=== PATIENT | female | born 1930 | race Caucasian/White ===

== ENCOUNTER → 2017-01-07 | Outpatient (CLI) | payer OTHER ==
[~2017-01-07] MED LIST: ASPEC81 PO; CHOL100027 PO; FURO20TA PO; GADAVIST IV PRN; INSDGI SC; LEVO125T72 PO; LISI40TA PO; LOPRESSOR PO; NSNN50; NVLGI SC; SIMV20TA5 PO; WARF5TAB90 PO
--- NOTE | 2017-01-07 17:59 | DIAGNOSTIC IMAGING REPORT ---
MRI ABDOMEN COMBO CLINICAL HISTORY: Pancreatic and renal masses TECHNIQUE: Imaging was performed prior to and following IV contrast injection. The patient was administered 8.5 cc of intravenous Gadavist COMPARISON STUDY: CT scan dated 02/18/2016 FINDINGS: The gallbladder surgically absent. No hepatic masses are visualized. No splenic masses are visualized. There is no ductal dilatation. There are multiple tiny cystic pancreatic lesions. There is also a dominant lobulated 16 mm cystic lesion at the level the pancreatic head. 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 12 month follow-up is recommended. Postcontrast images are somewhat limited due to respiratory motion artifact. There are bilateral renal cysts. The indeterminate 1 cm lesion within the lower pole the right kidney does not demonstrate significant enhancement and is felt to represent a hyperdense cyst. This can be reevaluated on the 12 month follow-up examination. There is no evidence of pathologic adenopathy. IMPRESSION: 1. Multiple cystic pancreatic lesions including a dominant lobulated 16 mm lesion at the level the pancreatic head. 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 12 month follow-up is recommended. 2. Multiple renal cysts. The previous identified indeterminate 1 cm lower pole right renal lesion, demonstrates no significant enhancement and in all likelihood represents a hyperdense cyst. This should be reevaluated at the patient's 12 month follow-up examination. Electronically signed by: Vinod Lundberg M.D. 01/07/2017 5:58 PM Dictated Date/Time: 01/07/2017 5:50 PM
== END | disposition home or self-care (01) ==
LOC: C.MRI 15:57
PROVIDERS: ATTEND Internal Medicine
DX: K86.9 Disease of pancreas, unspecified (principal)

== ENCOUNTER → 2017-05-12 | Outpatient (CLI) | payer OTHER ==
[~2017-05-12] MED LIST changes: -GADAVIST IV PRN
[2017-05-12 14:12] LABS: ESTIMATED AVERAGE GLUCOSE 140 mg/dl; HA1C FLAG Normal (Normal)
[2017-05-12 14:28] LABS: CHOLESTEROL/HDL RATIO 1.6; THYROID STIMULATING HORMONE 0.994 uIu/ml (0.300-4.500)
== END | disposition home or self-care (01) ==
LOC: C.LABBC 09:39
PROVIDERS: ATTEND Internal Medicine
DX: E78.00 Pure hypercholesterolemia, unspecified (principal); E11.49 Type 2 diabetes mellitus with other diabetic neurological complication; E03.9 Hypothyroidism, unspecified

== ENCOUNTER 2017-10-11 13:06 | Emergency (ER) | payer OTHER ==
[~2017-10-11] VITALS: Ht 162.6 cm; Wt 80.4 kg
[2017-10-11 13:20] VITALS: TEMP 36.6
[2017-10-11] MEDS ORDERED: SODIUM CHLORIDE 0.9% 500ML 500 ML IV STA (13:26)
[2017-10-11] MEDS ORDERED: FAMOTIDINE 20MG/5ML IV PUSH IV STA (13:26)
[2017-10-11] MEDS ORDERED: METHYLPREDNISOLONE 125 MG VIAL IV STA (13:26)
--- NOTE | 2017-10-11 13:31 | EMERGENCY ROOM VISIT NOTE ---
History Report prepared by Bang: Jyoti Duran Under the Supervision of: Dr. Ronni Momin D.O. First contact with patient: 13:17 Chief Complaint: ALLERGIC REACTION Stated Complaint: SWELLING OF FACE, TONGUE, HANDS; POSS ALLERGIC LUTHER Nursing Triage Summary: Pt presents with angioedema, tongue feels thick and sob x 3 days. Pt states sx worse in the morning. Started on an unknown medication last week that is a "spray in the mouth, for congestion that has a steroid. Dr. Holman gave it to me. " History of Present Illness The patient is a 87 year old female who presents to the Emergency Room with complaints of an episode of a possible allergic reaction beginning three days ago. The patient notes a nonproductive cough and worsening swelling to her face and tongue. She reports some shortness of breath which worsens when she lays down. The patient has a history of diabetes. The patient is on Metoprol, warfarin, and lisinopril. The patient saw her PCP, Dr. Holman last week and was put on a oral spray for "congestion". Source of History: patient Onset: three days ago Position: other (generalized) Quality: other (allergic reaction(possible)) Timing: other (episode) Associated Symptoms: + SOB Review of Systems See HPI for pertinent positives & negatives. A total of 10 systems reviewed and were otherwise negative. Past Medical & Surgical Medical Problems: (1) Benign hypertension (2) Diabetes mellitus (3) Hypercholesterolemia (4) Hypothyroidism 1986 (5) Osteoporosis (6) Removal of cyst in right breast (7) Juliaetta Teeth Removal Family History Diabetes mellitus Social History Smoking Status: Former Smoker Alcohol Use: none Drug Use: none Marital Status: Housing Status: lives alone Occupation Status: retired Current/Historical Medications Scheduled Aspirin (Aspirin Ec), 81 MG PO DAILY Cholecalciferol (Vitamin D), 1,000 UNITS PO DAILY Insulin Aspart (Novolog), 5 UNITS SC BID Insulin Aspart (Novolog), 7 UNITS SC QPM Insulin Glargine (Lantus), 10 UNITS SC QPM Levothyroxine Sodium (Synthroid), 125 MCG PO DAILY Lisinopril (Zestril), 40 MG PO DAILY Metoprolol Tartrate (Lopressor) (Lopressor), 50 MG PO BID Simvastatin (Zocor), 20 MG PO QPM Warfarin Sod (Jantoven), 2.5 MG PO 3XWK Warfarin Sod (Coumadin), 5 MG PO 4XWK Scheduled PRN Furosemide (Lasix), 20 MG PO DAILY PRN for EDEMA Mometasone Furoate (Nasal) (Mometasone Furoate), 2 SPRAYS NA DAILY PRN for allergies Allergies Coded Allergies: No Known Allergies (Verified , 10/11/17) Physical Exam Vital Signs Date Time Temp Pulse Resp B/P (MAP) Pulse Ox O2 Delivery O2 Flow Rate FiO2 10/11/17 20:36 72 27 151/79 96 10/11/17 20:30 72 27 151/79 96 Nasal Cannula 3.0 10/11/17 20:15 73 28 155/63 99 Nasal Cannula 3.0 10/11/17 20:01 73 25 151/69 98 Nasal Cannula 3.0 10/11/17 19:46 74 26 133/73 98 Nasal Cannula 3.0 10/11/17 19:30 70 22 129/73 95 Nasal Cannula 3.0 10/11/17 19:17 67 26 147/61 99 Nasal Cannula 3.0 10/11/17 19:15 68 26 99 10/11/17 19:10 70 30 202/80 100 Nasal Cannula 3.0 10/11/17 19:01 67 27 194/113 100 Nasal Cannula 3.0 10/11/17 18:53 74 31 200/98 99 Nasal Cannula 3.0 10/11/17 18:36 72 95 10/11/17 18:31 188/65 10/11/17 18:06 69 23 97 10/11/17 18:01 155/84 10/11/17 17:36 78 33 100 10/11/17 17:31 223/83 10/11/17 17:30 69 19 10/11/17 17:01 209/122 10/11/17 17:00 76 33 10/11/17 16:31 230/113 10/11/17 16:31 230/113 10/11/17 16:30 80 31 89 10/11/17 16:30 80 31 89 10/11/17 16:05 236/91 10/11/17 16:05 236/91 10/11/17 16:01 227/92 10/11/17 16:01 227/92 10/11/17 16:00 77 27 10/11/17 16:00 95 Nasal Cannula 3.0 10/11/17 16:00 77 27 10/11/17 16:00 72 16 231/93 95 Nasal Cannula 3.0 10/11/17 15:59 231/93 18 15:59 231/93 10/11/17 15:58 85 Room Air 10/11/17 15:58 70 25 185/93 85 Room Air 10/11/17 14:22 74 16 185/93 94 Room Air 10/11/17 13:44 61 16 185/91 95 10/11/17 13:37 95 Room Air 10/11/17 13:21 65 10/11/17 13:20 Room Air 93 10/11/17 13:20 36.6 58 16 188/93 94 Room Air 10/11/17 13:20 60 18 188/93 94 Room Air 10/11/17 13:20 94 Room Air Physical Exam GENERAL: Patient is awake, alert, and in no acute distress. Patient is resting comfortably and showing no signs of anxiety EYES: The conjunctivae are clear. The pupils are round and reactive. Significant facial plethora noted no significant oral angioedema noted. EARS, NOSE, MOUTH AND THROAT: The nose is without any evidence of any deformity. Mucous membranes are moist tongue is midline. Mucus membranes dry. NECK: The neck is nontender and supple. Swelling in left peritracheal region, no erythema noted. RESPIRATORY: Normal respiratory effort is noted there is no evidence of wheezing rhonchi or rales CARDIOVASCULAR: Regular rate and rhythm noted there no murmurs rubs or gallops normal S1 normal S2 GASTROINTESTINAL: The abdomen is soft. Bowel sounds are present in all quadrants. Abdomen is nontender MUSCULOSKELETAL/EXTREMITIES: Trace pedal edema bilaterally. There is no evidence of gross deformity full range of motion is noted in the hips and shoulders SKIN: There is no obvious evidence of any rash. There are no petechiae, pallor or cyanosis noted. NEUROLOGIC: Patient is awake alert and oriented x3 strength is symmetric patellar reflexes are 2+ bilaterally Medical Decision & Procedures ER Provider Diagnostic Interpretation: Radiology results as stated below per my review and radiologist interpretation: CT OF THE CHEST WITH IV CONTRAST FINDINGS: Thyroid: Imaged portions of the thyroid gland are normal in appearance. Thoracic aorta: The thoracic aorta is normal in course and caliber, noting standard 3-vessel arch anatomy. No aneurysm or dissection is seen. Pulmonary vasculature: There is attenuation of the right upper lobe pulmonary artery secondary to compression from a large mediastinal mass. There is dilatation of the main pulmonary artery segment which measures 46 mm. This suggests potential hypertension. HEART: There are mild coronary artery calcifications. Lungs and pleural spaces: There is a small left pleural effusion and moderate right pleural effusion. There are compressive atelectatic changes within the right upper lobe. Mediastinum: There is a 13 cm mediastinal mass which narrows the trachea and right upper lobe bronchus. The mass encases and narrows the superior vena cava. The mass encases and narrows the right upper lobe pulmonary artery. Janett: The large mediastinal mass is contiguous with the right hilum. Axilla: There is an enlarged 22 mm left axillary lymph node. Upper abdomen: There is a hiatal hernia. There are 2 hypervascular lesions within the left hepatic lobe anteriorly, each of which measures 1 cm. Skeletal structures: There are no lytic or blastic osseous lesions. IMPRESSION: 1. Large 13 cm superior and middle mediastinal mass which encases and narrows the trachea, right upper lobe bronchus, right upper lobe pulmonary artery, and superior vena cava. 2. Moderate right pleural effusion 3. Small left pleural effusion 4. Enlarged left axillary lymph node Electronically signed by: Vinod Lundberg M.D. SOFT TISSUE NECK WITH FINDINGS: Community Theater Actor topogram: Partially visualized right paramediastinal apical mass. No suspicious nodular enhancement along the airway. No displacement of parapharyngeal fat planes. No effacement of the valleculae or piriform sinuses. No lymphadenopathy. Mild diffuse edema superficial and deep edema with infiltration of the carotid spaces. The veins are grossly patent allowing for phase of contrast. Common and internal carotid arteries patent. Atherosclerosis of the carotid bulbs without significant narrowing. No focal fluid collection. Bilateral comanche lenses of the globes are absent. Postsurgical change of the globes. Minimal mucosal thickening in the left maxillary sinus. Paranasal sinuses and mastoid air cells otherwise clear. Degenerative changes of the cervical spine. Consolidation and effusion noted at the right apex, partially visualized. IMPRESSION: 1. Nonspecific superficial and deep edema in the neck. No evidence of abscess or lymphadenopathy. This is suspected to be a consequence of venous obstruction within the thorax. Please see separately dictated CT chest. 2. Partially visualized consolidation and effusion at the right apex. Electronically signed by: Arnaud Carmichael M.D. CHEST ONE VIEW PORTABLE FINDINGS: There is a 6 cm right upper lobe/paratracheal mass with secondary right upper lobe volume loss. CT scanning is recommended in follow-up.[ The left lung is clear. There are possible trace pleural effusions. IMPRESSION: 6 cm right upper lobe/paratracheal mass with secondary right upper lobe finding loss. This should be presumed neoplastic unless proven otherwise. CT scanning is recommended in follow-up. Electronically signed by: Vinod Lundberg M.D. Laboratory Results 10/11/17 13:32 Red Blood Count 4.89, Mean Corpuscular Volume 91.2, Mean Corpuscular Hemoglobin 29.9, Mean Corpuscular Hemoglobin Concent 32.7, Mean Platelet Volume 11.0, Neutrophils (%) (Auto) 63.5, Lymphocytes (%) (Auto) 20.8, Monocytes (%) (Auto) 12.3, Eosinophils (%) (Auto) 2.3, Basophils (%) (Auto) 0.8, Neutrophils # (Auto ) 6.06, Lymphocytes # (Auto) 1.99, Monocytes # (Auto) 1.18, Eosinophils # (Auto ) 0.22, Basophils # (Auto) 0.08 10/11/17 13:32 Test 10/11/17 13:32 10/11/17 14:21 White Blood Count 9.56 K/uL (4.8-10.8) Red Blood Count 4.89 M/uL (4.2-5.4) Hemoglobin 14.6 g/dL (12.0-16.0) Hematocrit 44.6 % (37-47) Mean Corpuscular Volume 91.2 fL (80-100) Mean Corpuscular Hemoglobin 29.9 pg (25-34) Mean Corpuscular Hemoglobin Concent 32.7 g/dl (32-36) Platelet Count 315 K/uL (130-400) Mean Platelet Volume 11.0 fL (7.4-10.4) Neutrophils (%) (Auto) 63.5 % Lymphocytes (%) (Auto) 20.8 % Monocytes (%) (Auto) 12.3 % Eosinophils (%) (Auto) 2.3 % Basophils (%) (Auto) 0.8 % Neutrophils # (Auto) 6.06 K/uL (1.4-6.5) Lymphocytes # (Auto) 1.99 K/uL (1.2-3.4) Monocytes # (Auto) 1.18 K/uL (0.11-0.59) Eosinophils # (Auto) 0.22 K/uL (0-0.5) Basophils # (Auto) 0.08 K/uL (0-0.2) RDW Standard Deviation 49.6 fL (36.4-46.3) RDW Coefficient of Variation 15.0 % (11.5-14.5) Immature Granulocyte % (Auto) 0.3 % Immature Granulocyte # (Auto) 0.03 K/uL (0.00-0.02) Anion Gap 7.0 mmol/L (3-11) Est Creatinine Clear Calc Drug Dose 48.9 ml/min Estimated GFR () 75.8 Estimated GFR (Non- 65.4 BUN/Creatinine Ratio 26.9 (10-20) Calcium Level 9.3 mg/dl (8.5-10.1) Total Bilirubin 2.0 mg/dl (0.2-1) Aspartate Amino Transf (AST/SGOT) 46 U/L (15-37) Alanine Aminotransferase (ALT/SGPT) 32 U/L (12-78) Alkaline Phosphatase 101 U/L (45-117) Total Creatine Kinase 115 U/L (26-192) Creatine Kinase MB 3.1 ng/ml (0.5-3.6) Creatine Kinase MB Ratio 2.7 (0-3.0) Troponin I 0.033 ng/ml (0-0.045) Total Protein 7.5 gm/dl (6.4-8.2) Albumin 3.3 gm/dl (3.4-5.0) Globulin 4.2 gm/dl (2.5-4.0) Albumin/Globulin Ratio 0.8 (0.9-2) Prothrombin Time 25.7 SECONDS (9.0-12.0) Prothromb Time International Ratio 2.5 (0.9-1.1) Activated Partial Thromboplast Time 33.4 SECONDS (21.0-31.0) Partial Thromboplastin Ratio 1.3 Laboratory results per my review. Medications Administered Medications (Trade) Dose Ordered Sig/Tyrese Route Start Time Stop Time Status Last Admin Dose Admin Sodium Chloride 500 ml @ 999 mls/hr Q31M STAT IV 10/11/17 13:26 10/11/17 13:56 DC 10/11/17 13:44 999 MLS/HR Methylprednisolone Sodium Succinate (Solu-Medrol IV) 125 mg NOW STAT IV 10/11/17 13:26 10/11/17 13:28 DC 10/11/17 13:43 125 MG Famotidine (Pepcid 20mg Iv Push) 20 mg ONE STAT IV 10/11/17 13:26 10/11/17 13:28 DC 10/11/17 13:43 20 MG Labetalol HCl (Normodyne IV) 20 mg NOW STAT IV 10/11/17 17:32 10/11/17 17:33 DC 10/11/17 17:48 20 MG Labetalol HCl (Normodyne IV) 20 mg NOW STAT IV 10/11/17 18:56 10/11/17 18:57 DC 10/11/17 19:09 20 MG ECG Indication: SOB/dyspnea Rate (beats per minute): 56 Rhythm: atrial fibrillation Findings: ST depression (Anterior and inferior), other (no PVC) Comparison ECG Date: 10/04/12 Change: ST depression is increased. EKG interpreted by me. ED Course 1323: The patient was evaluated in room A1. A complete history and physical examination were performed. 1326: Ordered Famotidine 20 mg IV, Solu-Medrol IV 125 mg IV., NSS 500 ml @ 999 mls/hr IV 1422: Dr. Kelly was paged. 1723: I discussed the patient's case with Dr. Rock CT surgery. He will accept the patient to the ICU. 1728: I updated the patient on her test results and the treatment plan. 1732: Ordered Labetalol HCl 20 mg IV 1733: I discussed the patient's case with Dr. Mullen ICU attending. The patient is accepted to the ICU she will be evaluated for further management. Medical Decision Differential diagnosis: Etiologies such as infections, reactive airway disease, pneumonia, pneumothorax , COPD, CHF, cardiac ischemia, pulmonary embolism, musculoskeletal, gastrointestinal, as well as others were entertained. Nursing notes reviewed. Additional history is obtained from the patient's friend. The patient is an 78-year-old female who presented to the emergency department for possible allergic reaction. The patient's been noticing swelling in her tongue as well as her face. She was brought back directly from triage because of difficulty breathing. The patient did not appear to have significant oral angioedema and her breathing was nonlabored. She was initially treated with steroids as well as H2 aspen. The patient's chest x-ray showed a large abnormality in the paratracheal region. I discussed the patient's laboratory radiographic studies with her. 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 The patient was treated with IV beta blockers for blood pressure management. She was reevaluated multiple times. We were unable to contact the thoracic surgeon at our facility so I discussed this case with the cardiothoracic service as well as the unit aide tech service at [facility] [address]. They've agreed to accept the patient in transfer. Transfer paperwork was filled out by myself. The patient was reevaluated multiple times. Medication Reconcilliation Current Medication List: was personally reviewed by me Blood Pressure Screening Patient's blood pressure: Elevated blood pressure Blood pressure disposition: Referred to PCP Consults Time Called: 1717 Consulting Physician: Dr. Rock CT surgery Returned Call: 1723 I discussed the patient's case with Dr. Rock CT surgery. He will accept the patient to the ICU. Additional Consults: Time Called: 1724 Consulted Physician: Dr. Mullen ICU attending Returned Call: 1733 Additional Comments: I discussed the patient's case with Dr. Mullen ICU attending. The patient is accepted to the ICU she will be evaluated for further management. Impression Primary Impression: SVC syndrome Additional Impressions: Mediastinal mass Hypoxia Critical Care I have personally spent greater than 45 minutes of critical care time in the direct management of this patient. This includes bedside care, interpretation of diagnostic studies, and testing, discussion with consultants, patient, and family members, and other required patient management activities. This 45 minutes is in excess of all separately billable procedures. Scribe Attestation The scribe's documentation has been prepared under my direction and personally reviewed by me in its entirety. I confirm that the note above accurately reflects all work, treatment, procedures, and medical decision making performed by me. Departure Information Dispostion Transfer Acute Care Facility Referrals Pro,Ronni Christensen M.D. (PCP) Patient Instructions [facility] Problem Qualifiers
[2017-10-11 13:36] VITALS: Ht 162.6 cm; Wt 80.4 kg
[2017-10-11 13:51] LABS: BASO % 0.8 %; BASO ABS # 0.08 K/uL (0-0.2); EOS % 2.3 %; EOS ABS # 0.22 K/uL (0-0.5); HEMATOCRIT 44.6 % (37-47); HEMOGLOBIN 14.6 g/dL (12.0-16.0); IG# 0.03 K/uL (0.00-0.02); LYMPH % 20.8 %; LYMPH ABS # 1.99 K/uL (1.2-3.4); MEAN CELL VOLUME 91.2 fL (80-100); MEAN CORPUSCULAR HEMOGLOBIN 29.9 pg (25-34); MEAN CORPUSCULAR HGB CONC 32.7 g/dl (32-36); MONO % 12.3 %; MONO ABS # 1.18 K/uL (0.11-0.59); NEUT % 63.5 %; NEUT ABS # 6.06 K/uL (1.4-6.5); PLATELET COUNT 315 K/uL (130-400); RED CELL DISTRIBUTION WIDTH SD 49.6 fL (36.4-46.3); WHITE BLOOD COUNT 9.56 K/uL (4.8-10.8)
--- NOTE | 2017-10-11 13:54 | DIAGNOSTIC IMAGING REPORT ---
CHEST ONE VIEW PORTABLE CLINICAL HISTORY: Respiratory distress COMPARISON STUDY: No previous studies for comparison. FINDINGS: There is a 6 cm right upper lobe/paratracheal mass with secondary right upper lobe volume loss. CT scanning is recommended in follow-up.[ The left lung is clear. There are possible trace pleural effusions. IMPRESSION: 6 cm right upper lobe/paratracheal mass with secondary right upper lobe finding loss. This should be presumed neoplastic unless proven otherwise. CT scanning is recommended in follow-up. Electronically signed by: Vinod Lundberg M.D. 10/11/2017 1:53 PM Dictated Date/Time: 10/11/2017 1:50 PM
[2017-10-11] MEDS ORDERED: CHOL100010 PO (14:12)
[2017-10-11] MEDS ORDERED: FURO-85 PO (14:12)
[2017-10-11] MEDS ORDERED: ASPI81TA28 PO (14:12)
[2017-10-11] MEDS ORDERED: NVLG SC ×2 (14:12)
[2017-10-11] MEDS ORDERED: INSDGI SC (14:13)
[2017-10-11] MEDS ORDERED: SIMV20TA2 PO (14:13)
[2017-10-11] MEDS ORDERED: METO50TA16 PO (14:13)
[2017-10-11] MEDS ORDERED: WARF2.5T8 PO (14:13)
[2017-10-11] MEDS ORDERED: LISI40TA PO (14:13)
[2017-10-11] MEDS ORDERED: MOME6000 (14:13)
[2017-10-11] MEDS ORDERED: CMD5 PO (14:13)
[2017-10-11] MEDS ORDERED: LEVO125T72 PO (14:13)
[2017-10-11] MEDS ORDERED: OPTIRAY 320 IV PRN (14:30)
[2017-10-11 14:56] LABS: INR 2.5 (0.9-1.1); PTT PATIENT 33.4 SECONDS (21.0-31.0)
[2017-10-11 15:08] LABS: ALBUMIN 3.3 gm/dl (3.4-5.0); CALCIUM 9.3 mg/dl (8.5-10.1); CKMB 3.1 ng/ml (0.5-3.6); CREATININE 0.8 mg/dl (0.60-1.20); TOTAL PROTEIN 7.5 gm/dl (6.4-8.2)
[2017-10-11 16:00] VITALS: O2SAT 95
--- NOTE | 2017-10-11 16:04 | DIAGNOSTIC IMAGING REPORT ---
SOFT TISSUE NECK WITH CLINICAL HISTORY: 87 years-old Female presenting with facial swelling. TECHNIQUE: Multidetector CT of the neck was performed after the administration of intravenous contrast. IV contrast: 115 mL of Optiray 320. A dose lowering technique was used consistent with the principles of ALARA (as low as reasonably achievable). COMPARISON: None. CT DOSE (mGy.cm): The estimated cumulative dose is 583.11. FINDINGS: Sewer Inspector topogram: Partially visualized right paramediastinal apical mass. No suspicious nodular enhancement along the airway. No displacement of parapharyngeal fat planes. No effacement of the valleculae or piriform sinuses. No lymphadenopathy. Mild diffuse edema superficial and deep edema with infiltration of the carotid spaces. The veins are grossly patent allowing for phase of contrast. Common and internal carotid arteries patent. Atherosclerosis of the carotid bulbs without significant narrowing. No focal fluid collection. Bilateral jamul lenses of the globes are absent. Postsurgical change of the globes. Minimal mucosal thickening in the left maxillary sinus. Paranasal sinuses and mastoid air cells otherwise clear. Degenerative changes of the cervical spine. Consolidation and effusion noted at the right apex, partially visualized. IMPRESSION: 1. Nonspecific superficial and deep edema in the neck. No evidence of abscess or lymphadenopathy. This is suspected to be a consequence of venous obstruction within the thorax. Please see separately dictated CT chest. 2. Partially visualized consolidation and effusion at the right apex. Electronically signed by: Arnaud Carmichael M.D. 10/11/2017 4:03 PM Dictated Date/Time: 10/11/2017 3:57 PM
--- NOTE | 2017-10-11 16:07 | DIAGNOSTIC IMAGING REPORT ---
CT OF THE CHEST WITH IV CONTRAST CLINICAL HISTORY: Shortness of breath. Respiratory distress. COMPARISON STUDY: Chest x-ray dated to 618 TECHNIQUE: Following the IV administration of 115 mL of Optiray-320, CT of the thorax was performed from the thoracic inlet to the lung bases. Images are reviewed in the axial, sagittal, and coronal planes. IV contrast was administered without complication. A dose lowering technique was utilized adhering to the principles of ALARA. CT DOSE: 583.11 mGy.cm FINDINGS: Thyroid: Imaged portions of the thyroid gland are normal in appearance. Thoracic aorta: The thoracic aorta is normal in course and caliber, noting standard 3-vessel arch anatomy. No aneurysm or dissection is seen. Pulmonary vasculature: There is attenuation of the right upper lobe pulmonary artery secondary to compression from a large mediastinal mass. There is dilatation of the main pulmonary artery segment which measures 46 mm. This suggests potential hypertension. HEART: There are mild coronary artery calcifications. Lungs and pleural spaces: There is a small left pleural effusion and moderate right pleural effusion. There are compressive atelectatic changes within the right upper lobe. Mediastinum: There is a 13 cm mediastinal mass which narrows the trachea and right upper lobe bronchus. The mass encases and narrows the superior vena cava. The mass encases and narrows the right upper lobe pulmonary artery. Janett: The large mediastinal mass is contiguous with the right hilum. Axilla: There is an enlarged 22 mm left axillary lymph node. Upper abdomen: There is a hiatal hernia. There are 2 hypervascular lesions within the left hepatic lobe anteriorly, each of which measures 1 cm. Skeletal structures: There are no lytic or blastic osseous lesions. IMPRESSION: 1. Large 13 cm superior and middle mediastinal mass which encases and narrows the trachea, right upper lobe bronchus, right upper lobe pulmonary artery, and superior vena cava. 2. Moderate right pleural effusion 3. Small left pleural effusion 4. Enlarged left axillary lymph node Electronically signed by: Vinod Lundberg M.D. 10/11/2017 4:06 PM Dictated Date/Time: 10/11/2017 3:57 PM
[2017-10-11] MEDS ORDERED: LABETALOL HCL IV 5 MG/ML 20ML IV STA ×2 (17:32→18:56)
[2017-10-11 20:36] VITALS: BP 151/79; PULSE 72; O2SAT 96
== END 2017-10-11 20:37 | disposition short-term general hospital (02) ==
LOC: C.EDB 13:07 → C.EDA 20:37
DX: I87.1 Compression of vein (principal); R22.2 Localized swelling, mass and lump, trunk; R09.02 Hypoxemia; E11.9 Type 2 diabetes mellitus without complications; I10 Essential (primary) hypertension; Z79.4 Long term (current) use of insulin; M81.0 Age-related osteoporosis without current pathological fracture; E78.00 Pure hypercholesterolemia, unspecified; Z87.891 Personal history of nicotine dependence; Z79.01 Long term (current) use of anticoagulants

== ENCOUNTER 2017-10-27 08:20 | Inpatient (IN) | payer OTHER ==
[~2017-10-27] VITALS: Ht 162.6 cm; Wt 84.6 kg
[~2017-10-27 08:20] MED LIST changes: -ASPEC81 PO; +ASPI81TA28 PO; +CHOL100010 PO; -CHOL100027 PO; +CMD5 PO; +FURO-85 PO; -FURO20TA PO; -LOPRESSOR PO; +METO50TA16 PO; +MOME6000; -NSNN50; +NVLG SC; -NVLGI SC; +SIMV20TA2 PO; -SIMV20TA5 PO; +WARF2.5T8 PO; -WARF5TAB90 PO
--- NOTE | 2017-10-27 08:41 | EMERGENCY ROOM VISIT NOTE ---
History Report prepared by Bang: Imani Hein Under the Supervision of: Dr. Ronni Momin D.O. First contact with patient: 08:22 Chief Complaint: HYPOGLYCEMIA Stated Complaint: HYPOGLYCEMIA Nursing Triage Summary: Patient arrives via ems from [facility] with complaints of being more confused than normal. Patient has history of diabetes and staff found her BSG to be 40 this am. EMS admin a tube and half of oral glucose and brought it up to 44. Patient is on neutropenic precautions for lymphoma. PMH: A-fib, lymphoma, diabetes. History of Present Illness The patient is a 87 year old female who presents to the Emergency Room with complaints of hypoglycemia beginning shortly prior to arrival. Per nursing staff , the patient arrived from [facility] and states that she was confused this morning. Per nursing staff, the patient has a history of diabetes and reports that her sugar was 40 this morning. Per nursing staff, the patient had a tube and a half of oral glucose from EMS and states that the patient felt better after this. The nursing staff states that the patient is on neutropenic precautions for lymphoma. Per nursing staff, the patient has a history of atrial fibrillation. The patient states that she has not eaten today and denies having any pain. Source of History: patient, nursing staff Onset: shortly prior to arrival Position: other (global) Quality: other (hypoglycemia ) Associated Symptoms: No abdominal pain Note: additional symptom: confusion Review of Systems See HPI for pertinent positives & negatives. A total of 10 systems reviewed and were otherwise negative. Past Medical & Surgical Medical Problems: (1) Atrial fibrillation (2) B-cell lymphoma (3) Chemotherapy-induced neutropenia (4) Diabetes mellitus, type II (5) HLD (hyperlipidemia) (6) HTN (hypertension) (7) Hypoglycemia (8) Osteoporosis (9) Removal of cyst in right breast Family History Diabetes mellitus Social History Smoking Status: Former Smoker Alcohol Use: none Drug Use: none Marital Status: Housing Status: assisted living Occupation Status: retired Current/Historical Medications Scheduled Acyclovir (Acyclovir), 400 MG PO Q12 Allopurinol (Zyloprim), 300 MG PO QAM Apixaban (Eliquis), 5 MG PO AMHS Cholecalciferol (Vitamin D), 1,000 UNITS PO DAILY Insulin Aspart (Novolog), 5 UNITS SC BID Insulin Aspart (Novolog), 7 UNITS SC QPM Insulin Glargine (Lantus), 10 UNITS SC HS Levofloxacin (Levaquin), 500 MG PO HS Levothyroxine Sodium (Synthroid), 125 MCG PO DAILY Lisinopril (Zestril), 40 MG PO DAILY Metoprolol Tartrate (Lopressor) (Lopressor), 50 MG PO Q12 Ondansetron Hcl (Zofran), 8 MG PO QPM Trimethoprim/Sulfamethoxazole (Bactrim 400MG/80MG), 1 TAB PO QAM Scheduled PRN Mometasone Furoate (Nasal) (Mometasone Furoate), 2 SPRAYS NA DAILY PRN for Nasal Congestion Ondansetron Hcl (Zofran), 8 MG PO Q6H PRN for Nausea Allergies Coded Allergies: No Known Allergies (Verified , 10/11/17) Physical Exam Vital Signs Date Time Temp Pulse Resp B/P (MAP) Pulse Ox O2 Delivery O2 Flow Rate FiO2 10/27/17 10:57 91 24 132/40 100 Room Air 10/27/17 10:07 36.4 87 18 133/57 100 Room Air 10/27/17 08:37 64 10/27/17 08:23 34.9 82 18 142/99 100 Room Air Physical Exam GENERAL: Patient is awake, alert, and in no acute distress. Patient is resting comfortably and showing no signs of anxiety EYES: The conjunctivae are clear. The pupils are round and reactive. EARS, NOSE, MOUTH AND THROAT: The nose is without any evidence of any deformity. Mucous membranes are moist tongue is midline NECK: The neck is nontender and supple. RESPIRATORY: Normal respiratory effort is noted there is no evidence of wheezing rhonchi or rales CARDIOVASCULAR: Irregular rate and rhythm noted there no murmurs rubs or gallops normal S1 normal S2 GASTROINTESTINAL: The abdomen is soft. Bowel sounds are present in all quadrants. Abdomen is nontender MUSCULOSKELETAL/EXTREMITIES: There is no evidence of gross deformity full range of motion is noted in the hips and shoulders SKIN: There is no obvious evidence of any rash. There are no petechiae, pallor or cyanosis noted. Pedal edema bilaterally with chronic venous stasis changes. NEUROLOGIC: Patient is awake alert and oriented x3 Medical Decision & Procedures ER Provider Diagnostic Interpretation: Radiology results as stated below per my review and radiologist interpretation: CHEST ONE VIEW PORTABLE CLINICAL HISTORY: Pain, radiating to the abdomen. COMPARISON STUDY: 10/11/2017 FINDINGS: The heart remains enlarged. There is been interval decrease in the size of the right mediastinal mass. There is a small subpulmonic right pleural effusion fusion. A trace left pleural effusion is also suspected. There is no focal pulmonary consolidation. There is no free intraperitoneal air.[ IMPRESSION: 1. Interval decrease in the size of the large right-sided mediastinal mass 2. Small pleural effusions right greater than left. No evidence of acute parenchymal consolidation 3. No evidence of free intraperitoneal air Electronically signed by: Vinod Lundberg M.D. 10/27/2017 9:02 AM Dictated Date/Time: 10/27/2017 9:01 AM Laboratory Results 10/27/17 09:04 10/27/17 09:04 Test 10/27/17 09:04 10/27/17 10:08 10/27/17 10:10 Red Blood Count 3.78 M/uL (4.2-5.4) Mean Corpuscular Volume 86.0 fL (80-100) Mean Corpuscular Hemoglobin 29.4 pg (25-34) Mean Corpuscular Hemoglobin Concent 34.2 g/dl (32-36) RDW Standard Deviation 43.1 fL (36.4-46.3) RDW Coefficient of Variation 13.9 % (11.5-14.5) Mean Platelet Volume 10.0 fL (7.4-10.4) Prothrombin Time 11.5 SECONDS (9.0-12.0) Prothromb Time International Ratio 1.1 (0.9-1.1) Activated Partial Thromboplast Time 28.7 SECONDS (21.0-31.0) Partial Thromboplastin Ratio 1.1 Anion Gap 7.0 mmol/L (3-11) Est Creatinine Clear Calc Drug Dose 59.0 ml/min Estimated GFR () 90.3 Estimated GFR (Non- 77.9 BUN/Creatinine Ratio 33.9 (10-20) Estimated Average Glucose 163 mg/dl Hemoglobin A1c 7.3 % (4.5-5.6) Calcium Level 7.7 mg/dl (8.5-10.1) Magnesium Level 1.8 mg/dl (1.8-2.4) Total Bilirubin 2.1 mg/dl (0.2-1) Direct Bilirubin 0.6 mg/dl (0-0.2) Aspartate Amino Transf (AST/SGOT) 37 U/L (15-37) Alanine Aminotransferase (ALT/SGPT) 53 U/L (12-78) Alkaline Phosphatase 73 U/L (45-117) Troponin I 0.030 ng/ml (0-0.045) Total Protein 4.9 gm/dl (6.4-8.2) Albumin 2.5 gm/dl (3.4-5.0) Lipase 47 U/L (73-393) Procalcitonin < 0.05 ng/ml (0-0.5) Thyroid Stimulating Hormone (TSH) 1.180 uIu/ml (0.300-4.500) Bedside Glucose 115 mg/dl (70-90) Urine Color YELLOW Urine Appearance CLEAR (CLEAR) Urine pH 7.0 (4.5-7.5) Urine Specific [place] 1.010 (1.000-1.030) Urine Protein NEG (NEG) Urine Glucose (UA) NEG (NEG) Urine Ketones NEG (NEG) Urine Occult Blood NEG (NEG) Urine Nitrite NEG (NEG) Urine Bilirubin NEG (NEG) Urine Urobilinogen POS (NEG) Urine Leukocyte Esterase NEG (NEG) Laboratory results per my review. Medications Administered Medications (Trade) Dose Ordered Sig/Tyrese Route Start Time Stop Time Status Last Admin Dose Admin Cefepime HCl 2000 mg/Dextrose 112.5 ml @ 200 mls/hr ONE STAT IV 10/27/17 10:31 10/27/17 11:04 DC 10/27/17 10:57 200 MLS/HR Potassium Chloride (Klor-Con M10) 20 meq TODAY@1116 PO 10/27/17 11:16 10/27/17 20:00 10/27/17 13:19 20 MEQ ECG Per My Interpretation Indication: weakness Rate (beats per minute): 71 Rhythm: atrial fibrillation Findings: ST depression (diffuse), other (no PVCs) Change: no significant change (from 10/11/17) ED Course 0834: The patient was evaluated in room A12B. A complete history and physical examination were performed. 0928: I checked on the patient. 1031: Ordered Cefepime HCl 2,000 mg/Dextrose 112.5 ml @ 200 mls/hr IV. 1040: I discussed the patient's case with Rohini Merrill PA-C. The patient will be evaluated for further management. Medical Decision Differential diagnosis: Etiologies such as metabolic, infection, hypoglycemia, electrolyte abnormalities , cardiac sources, intracerebral event, toxicologic, neurologic, as well as others were entertained. Nursing notes reviewed. The patient is an 87-year-old female who presented to the emergency department for an evaluation of altered mental status. The patient was found to have hypoglycemia and hypothermia although I think these 2 are related. The patient was found to have significant neutropenia. 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 Because the degree of neutropenia the patient was treated with IV antibiotics. Her hyperglycemia was corrected with giving her a meal. I discussed patient's laboratory and radiographic studies with her. I discussed her case with the on-call [facility] Hospitalist. They have agreed to evaluate the patient in the emergency department for further management and disposition. Medication Reconcilliation Current Medication List: was personally reviewed by me Blood Pressure Screening Patient's blood pressure: Elevated blood pressure Blood pressure disposition: Elevated BP felt to be situational Consults Time Called: 1034 Consulting Physician: Rohini Merrill PA-C [facility] Returned Call: 1040 I discussed the patient's case with Rohini Merrill PA-C. The patient will be evaluated for further management. Impression Primary Impression: Altered mental status Additional Impressions: Hypoglycemia Hypothermia Neutropenia Scribe Attestation The scribe's documentation has been prepared under my direction and personally reviewed by me in its entirety. I confirm that the note above accurately reflects all work, treatment, procedures, and medical decision making performed by me. Departure Information Dispostion Being Evaluated By Hospitalist Referrals Sydney Starks D.O. (PCP) Patient Instructions My [facility] Problem Qualifiers Primary Impression: Altered mental status Altered mental status type: unspecified Qualified Codes: R41.82 - Altered mental status, unspecified Additional Impressions: Hypothermia Encounter type: initial encounter Qualified Codes: T68.XXXA - Hypothermia, initial encounter Neutropenia Neutropenia type: unspecified Qualified Codes: D70.9 - Neutropenia, unspecified
[2017-10-27] MEDS ORDERED: LEVO-366 PO (08:43)
[2017-10-27] MEDS ORDERED: ONDA8TAB6 PO ×2 (08:43)
[2017-10-27] MEDS ORDERED: APIX1TAB3 PO (08:43)
[2017-10-27] MEDS ORDERED: SULF1TAB92 PO (08:43)
[2017-10-27] MEDS ORDERED: ACYC400T PO (08:43)
[2017-10-27] MEDS ORDERED: ALLO300T2 PO (08:43)
--- NOTE | 2017-10-27 09:03 | DIAGNOSTIC IMAGING REPORT ---
CHEST ONE VIEW PORTABLE CLINICAL HISTORY: Pain, radiating to the abdomen. COMPARISON STUDY: 10/11/2017 FINDINGS: The heart remains enlarged. There is been interval decrease in the size of the right mediastinal mass. There is a small subpulmonic right pleural effusion fusion. A trace left pleural effusion is also suspected. There is no focal pulmonary consolidation. There is no free intraperitoneal air.[ IMPRESSION: 1. Interval decrease in the size of the large right-sided mediastinal mass 2. Small pleural effusions right greater than left. No evidence of acute parenchymal consolidation 3. No evidence of free intraperitoneal air Electronically signed by: Vinod Lundberg M.D. 10/27/2017 9:02 AM Dictated Date/Time: 10/27/2017 9:01 AM
[2017-10-27 09:37] LABS: ALBUMIN 2.5 gm/dl (3.4-5.0); CALCIUM 7.7 mg/dl (8.5-10.1); CREATININE 0.67 mg/dl (0.60-1.20); POTASSIUM 3.3 mmol/L (3.5-5.1)
[2017-10-27 09:38] LABS: INR 1.1 (0.9-1.1); PTT PATIENT 28.7 SECONDS (21.0-31.0)
[2017-10-27 09:42] LABS: TOTAL PROTEIN 4.9 gm/dl (6.4-8.2)
[2017-10-27 09:50] LABS: HEMATOCRIT 32.5 % (37-47); HEMOGLOBIN 11.1 g/dL (12.0-16.0); MEAN CORPUSCULAR HEMOGLOBIN 29.4 pg (25-34); MEAN CORPUSCULAR HGB CONC 34.2 g/dl (32-36); PLATELET COUNT 151 K/uL (130-400); RED CELL DISTRIBUTION WIDTH CV 13.9 % (11.5-14.5); RED CELL DISTRIBUTION WIDTH SD 43.1 fL (36.4-46.3); WHITE BLOOD COUNT 0.09 K/uL (4.8-10.8)
[2017-10-27] MEDS ORDERED: CEFEPIME IV 2,000 MG in DEXTROSE 5% 100ML 100 ML IV STA (10:31)
[2017-10-27] MEDS ORDERED: POTASSIUM CHLORIDE 10 MEQ TABCR PO SCH (11:16)
[2017-10-27] MEDS ORDERED: POLYETHYLENE (MIRALAX) 17 GM PACK PO PRN (11:30)
[2017-10-27] MEDS ORDERED: ONDANSETRON INJ 2 MG/ML 2 ML VIAL IV PRN (11:30)
[2017-10-27] MEDS ORDERED: ENOXAPARIN 30 MG/0.3 ML SYR SC SCH (11:30)
[2017-10-27] MEDS ORDERED: VANCOMYCIN CONSULT ACTIVE PRN ×2 (11:30)
[2017-10-27] MEDS ORDERED: NSS + 20MEQ KCL 1000ML 1,000 ML IV SCH (11:30)
[2017-10-27] MEDS ORDERED: ACETAMINOPHEN 325 MG TAB PO PRN (11:30)
[2017-10-27] MEDS ORDERED: MAGNESIUM HYDROXIDE SUSP 30 ML UDC PO PRN (11:30)
[2017-10-27] MEDS ORDERED: ALUMINUM/MAGNESIUM/SIMETH (MAALOX MAX) 30 ML UDC PO PRN (11:30)
[2017-10-27] MEDS ORDERED: VANCOMYCIN INJ 2,000 MG in SODIUM CHLORIDE 0.9% 500ML 500 ML IV SCH (12:00)
[2017-10-27 12:13] VITALS: BP 118/72; PULSE 73; TEMP 36.7; O2SAT 98; BMI 29.9
[2017-10-27] MEDS ORDERED: ONDANSETRON 8 MG TAB PO PRN (12:15)
--- NOTE | 2017-10-27 12:16 | History and Physical ---
History & Physical Date & Time of Service: Oct 27, 2017 at 12:16 Chief Complaint: Hypoglycemia, Neutropenia Primary Care Physician: Sydney Starks D.O. 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 Underwent EBUS with biopsy of mediastinal mass consistent with B cell lymphoma. Was started on RCEPP (Rituxan/cyclophosphamide/etoposide/prednisone/procarbazine) chemo on . Was discharged to [facility] with plans to follow up with Dr. Herr for further treatment. Was seen in clinic by REESE Sanchez and daily Neupogen injections were initiated for ANC <1,000. Was found to be hypoglycemic (BSG of 40) and hypothermic at [facility] this morning and was brought over by EMS for further evaluation. Was given oral glucose en route and BSG now 115. States that she was experiencing confusion prior to arrival but it has since resolved. Endorses chills, lightheadedness, nausea and diarrhea since initiation of chemo on 10/16. Has had decreased PO intake over the past few days but anti-emetics are helping with nausea. Denies fever, headache, near-syncope, visual changes, sore throat, chest pain, SOB, abdominal pain, vomiting, dysuria, constipation or weakness in extremities. BLE are more swollen than normal and she has noted clear drainage over the past few days. Was discharged from [facility] on a 5 day course of lasix 20mg PO that she has completed. Past Medical/Surgical History Medical Problems: (1) Atrial fibrillation Status: Chronic (2) B-cell lymphoma Status: Chronic (3) Chemotherapy-induced neutropenia Status: Chronic (4) Diabetes mellitus, type II Status: Chronic (5) HLD (hyperlipidemia) Status: Chronic (6) HTN (hypertension) Status: Chronic (7) Hypoglycemia Status: Resolved (8) Osteoporosis Status: Chronic (9) Removal of cyst in right breast Status: Resolved Family History Diabetes mellitus Social History Smoking Status: Former Smoker Drug Use: none Marital Status: Housing status: [facility] Occupational Status: retired Immunizations History of Influenza Vaccine: Yes History of Tetanus Vaccine?: Yes History of Pneumococcal: Yes History of Hepatitis B Vaccine: No Multi-Drug Resistant Organisms History of MDRO: No Allergies Coded Allergies: No Known Allergies (Verified , 10/11/17) Home Medications Scheduled Acyclovir (Acyclovir), 400 MG PO Q12 Allopurinol (Zyloprim), 300 MG PO QAM Apixaban (Eliquis), 5 MG PO AMHS Cholecalciferol (Vitamin D), 1,000 UNITS PO DAILY Insulin Aspart (Novolog), 5 UNITS SC BID Insulin Aspart (Novolog), 7 UNITS SC QPM Insulin Glargine (Lantus), 10 UNITS SC HS Levofloxacin (Levaquin), 500 MG PO HS Levothyroxine Sodium (Synthroid), 125 MCG PO DAILY Lisinopril (Zestril), 40 MG PO DAILY Metoprolol Tartrate (Lopressor) (Lopressor), 50 MG PO Q12 Ondansetron Hcl (Zofran), 8 MG PO QPM Trimethoprim/Sulfamethoxazole (Bactrim 400MG/80MG), 1 TAB PO QAM Scheduled PRN Mometasone Furoate (Nasal) (Mometasone Furoate), 2 SPRAYS NA DAILY PRN for Nasal Congestion Ondansetron Hcl (Zofran), 8 MG PO Q6H PRN for Nausea Review of Systems Ten systems reviewed and negative except as noted in the HPI. Physical Exam Vital Signs Date Time Temp Pulse Resp B/P (MAP) Pulse Ox O2 Delivery O2 Flow Rate FiO2 10/27/17 11:45 97 22 123/48 100 10/27/17 10:57 91 24 132/40 100 Room Air 10/27/17 10:07 36.4 87 18 133/57 100 Room Air 10/27/17 08:37 64 10/27/17 08:23 34.9 82 18 142/99 100 Room Air General Appearance: WD/WN, no apparent distress, + pertinent finding ( chronically ill appearing) Head: normocephalic, atraumatic Eyes: normal inspection, PERRL, sclerae normal ENT: normal ENT inspection, hearing grossly normal, pharynx normal (dry mucous membranes ) Neck: supple, thyroid normal, trachea midline Respiratory/Chest: chest non-tender, lungs clear, normal breath sounds, no respiratory distress, no accessory muscle use Cardiovascular: no murmur, normal peripheral pulses, + irregularly irregular Abdomen/GI: non tender, soft, no organomegaly Back: normal inspection Extremities/Musculoskelatal: normal inspection, no calf tenderness, + pertinent finding (R>L BLE edema with clear drainage. Bruising on R leg. ) Neurologic/Psych: no motor/sensory deficits, alert, normal mood/affect, oriented x 3 Skin: normal color, warm/dry Diagnostics Laboratory Results Results Past 24 Hours Test 10/27/17 08:28 10/27/17 09:04 10/27/17 09:08 10/27/17 10:08 Range/Units Bedside Glucose 48 108 115 70-90 mg/dl White Blood Count 0.09 4.8-10.8 K/uL Red Blood Count 3.78 4.2-5.4 M/uL Hemoglobin 11.1 12.0-16.0 g/dL Hematocrit 32.5 37-47 % Mean Corpuscular Volume 86.0 80-100 fL Mean Corpuscular Hemoglobin 29.4 25-34 pg Mean Corpuscular Hemoglobin Concent 34.2 32-36 g/dl RDW Standard Deviation 43.1 36.4-46.3 fL RDW Coefficient of Variation 13.9 11.5-14.5 % Platelet Count 151 130-400 K/uL Mean Platelet Volume 10.0 7.4-10.4 fL Prothrombin Time 11.5 9.0-12.0 SECONDS Prothromb Time International Ratio 1.1 0.9-1.1 Activated Partial Thromboplast Time 28.7 21.0-31.0 SECONDS Partial Thromboplastin Ratio 1.1 Sodium Level 131 136-145 mmol/L Potassium Level 3.3 3.5-5.1 mmol/L Chloride Level 96 98-107 mmol/L Carbon Dioxide Level 28 21-32 mmol/L Anion Gap 7.0 3-11 mmol/L Blood Urea Nitrogen 23 7-18 mg/dl Creatinine 0.67 0.60-1.20 mg/dl Est Creatinine Clear Calc Drug Dose 59.0 ml/min Estimated GFR () 90.3 Estimated GFR (Non- 77.9 BUN/Creatinine Ratio 33.9 10-20 Random Glucose 74 70-99 mg/dl Calcium Level 7.7 8.5-10.1 mg/dl Magnesium Level 1.8 1.8-2.4 mg/dl Total Bilirubin 2.1 0.2-1 mg/dl Direct Bilirubin 0.6 0-0.2 mg/dl Aspartate Amino Transf (AST/SGOT) 37 15-37 U/L Alanine Aminotransferase (ALT/SGPT) 53 12-78 U/L Alkaline Phosphatase 73 45-117 U/L Troponin I 0.030 0-0.045 ng/ml Total Protein 4.9 6.4-8.2 gm/dl Albumin 2.5 3.4-5.0 gm/dl Lipase 47 73-393 U/L Thyroid Stimulating Hormone (TSH) 1.180 0.300-4.500 uIu/ml Test 10/27/17 10:10 10/27/17 11:20 Range/Units Urine Color YELLOW Urine Appearance CLEAR CLEAR Urine pH 7.0 4.5-7.5 Urine Specific [place] 1.010 1.000-1.030 Urine Protein NEG NEG Urine Glucose (UA) NEG NEG Urine Ketones NEG NEG Urine Occult Blood NEG NEG Urine Nitrite NEG NEG Urine Bilirubin NEG NEG Urine Urobilinogen POS NEG Urine Leukocyte Esterase NEG NEG Microbiology Results 10/27/17 Blood Culture, Received Pending 10/27/17 Blood Culture, Received Pending Diagnostic Radiology CXR: IMPRESSION: 1. Interval decrease in the size of the large right-sided mediastinal mass 2. Small pleural effusions right greater than left. No evidence of acute parenchymal consolidation 3. No evidence of free intraperitoneal air BLE Venous Doppler: IMPRESSION: There is no sonographic evidence of deep venous thrombosis identified in the right or left lower extremity. 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 Chemo-induced neutropenia: -Diagnosed with Large B cell lymphoma earlier in Oct 2017 -RCEPP chemo initiated on 10/16 at [facility] -Follows with Dr. Herr -Started on Neupogen 300mcg SQ daily last week -Found to be hypothermic this AM. Rectal temp of 34.5 initially in ED. Now afebrile -Meets SIRs criteria -Concern for infection; strict neutropenic precautions -CXR shows decreased in size of mediastinal LN, decrease in size of rt sided pleural effusion -Procalcitonin normal. Lactic acid of 3. Repeat lactic acid -Cefepime, vanc for empiric coverage. Follow cultures -Gentle IVF resuscitation -Consulted ID -Consulted heme onc -Cont neupogen at home dose -CBC with diff in AM B cell lymphoma: -Cont acyclovir, bactrim, allopurinol for prophylaxis Hypoglycemia: resolved -Poor PO intake lately, on insulin for DM II -Hold home regimen -SSI while in-patient -A1c pending Hyperbilirubinemia: -T bili of 2.1, D bili 0.6 -AST, ALT, Alk phos wnl -MRI liver orderered 2/ elevated bili, concern for mets -Patient refused MRI, stating that she feels too tired -GI consulted -Liver lesions (from abd CT 10/13/16 ) suggestive of metastatic disease -Patient does not wish to undergo liver MRI or continue chemo because she feels too tired -Need to clarify goals of care with heme onc -Repeat CMP in AM BLE swelling: -R>L BLE edema with clear drainage -Recently completed 5 day course of 20mg Po lasix -BLE dopplers negative for DVT Diarrhea: -Chronic but worse since initiation of chemo -Stool cultures, c diff pending A Fib: -A fib at 71 bpm on admission -Cont eliquis -Cont metoprolol for rate control HTN: -Cont lisinopril, metoprolol Hypothyroidism: -Cont levothyroxine HLD: -Cont statin DVT Ppx: Continue Eliquis Code status: FULL per discussion with patient PCP: Raudel Dispo: Admitted to telemetry. Discharge planning ordered for return to [facility]. PT, OT, speech evals ordered. Patient seen in collaboration with Dr. Patrick. Please see addendum. 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 was transferred to [place] on 10/11/17 , underwent Neck LN biopsy -confirming the malignancy was discharged form [facility] to [facility] for rehab received 1 cycle of Chemo presents to ER today with confusion , Hypothermia , hypoglycemia BSG was reported to be 40 at [facility] Lab showed severe Neutropenia Cxray : shows decrease in size of mediastinal LN , decrease in size of rt sided pleural effusion pt meets SIRS criteria Hypothermic /neutropenic possible source of infection still not identified empiric Abx with Vancomycin /cefepime pt been on Acyclovir and Bactrim for virus and PCP prophylaxis ID eval requested cont Broad spectrum Abx puentes culture ordered Neutropenic precaution heme onc consult requested please see further documentation of Sigrid Arango PA-C for further discussion of other issues Kami Patrick MD Level of Care Telemetry Resuscitation Status FULL RESUSCITATION VTE Prophylaxis VTE Risk Assessment Done? Y/N: Yes Risk Level: Moderate Given or contraindicated: Other Anticoagulation Social Service Consult Lives in Jail
[2017-10-27 12:30] LABS: HEMOGLOBIN A1C 7.3 % (4.5-5.6)
[2017-10-27] MEDS ORDERED: GLUCAGON FOR INJ 1 MG VIAL SQ PRN (12:30)
[2017-10-27] MEDS ORDERED: DEXTROSE 50% 50 ML SYR IV PRN (12:30)
[2017-10-27] MEDS ORDERED: GLUCOSE 10 TABS/TUBE PO PRN (12:30)
[2017-10-27] MEDS ORDERED: GLUCOSE 40% GEL 15 GM TUBE PO PRN (12:30)
[2017-10-27] MEDS ORDERED: FLUTICASONE PROPIONATE NA SPR 16 GM BTL PRN (13:41)
[2017-10-27] MEDS ORDERED: FILGRASTIM 300 MCG/ML 1 ML VIAL SQ ONE (14:00)
--- NOTE | 2017-10-27 14:06 | DIAGNOSTIC IMAGING REPORT ---
ULTRASOUND BILATERAL LOWER EXTREMITY VENOUS CLINICAL HISTORY: Lower extremity edema. COMPARISON STUDY: No priors. TECHNIQUE: Real-time, grayscale, and color Doppler sonography of the deep veins of the right and left lower extremity was performed from the inguinal crease to the calf. Compression and augmentation were utilized. FINDINGS: There is no sonographic evidence of deep venous thrombosis identified in the right or left lower extremity. The common femoral, superficial femoral, and popliteal veins are patent and normally compressible bilaterally. The greater saphenous vein and the profunda femoris vein at the junction with the common femoral vein are clear in both legs. The visualized calf veins are patent bilaterally. IMPRESSION: There is no sonographic evidence of deep venous thrombosis identified in the right or left lower extremity. Electronically signed by: Satnam Bass M.D. 10/27/2017 2:04 PM Dictated Date/Time: 10/27/2017 2:04 PM
--- NOTE | 2017-10-27 14:27 | Pharmacy Progress Note ---
Pharmacy Abx Initial Consult Date of Service Oct 27, 2017. Pharmacy Dosing Scope Date of Consult: 10/27/17 Consultation requested by: Sigrid Arango Pharmacy is consulted to initiate Vancomycin IV dosing therapy, order appropriate labs and adjust drug dose/frequency. Subjective The patient is a 87 year old female admitted on Oct 27, 2017 at 11:16. Objective Height (Feet): 5 Height (Inches): 4.00 Weight (Kilograms): 79.000 Vital Signs (Past 12Hrs) Vital Signs Past 12 Hours Date Time Temp Pulse Resp B/P (MAP) Pulse Ox O2 Delivery O2 Flow Rate FiO2 10/27/17 12:13 36.7 73 18 118/72 98 Room Air 10/27/17 11:45 97 22 123/48 100 10/27/17 10:57 91 24 132/40 100 Room Air 10/27/17 10:07 36.4 87 18 133/57 100 Room Air 10/27/17 08:37 64 10/27/17 08:23 34.9 82 18 142/99 100 Room Air Lab Results (24Hrs) Laboratory Tests (24 Hours) Test 10/27/17 09:04 10/27/17 12:42 Procalcitonin < 0.05 ng/ml (0-0.5) White Blood Count 0.09 K/uL (4.8-10.8) *L Lactic Acid Level 3.1 mmol/L (0.4-2.0) *H Micro Results Date/Time Source Procedure Growth Status 10/27/17 10:49 Blood Blood Culture Pending Received 10/27/17 10:44 Blood Blood Culture Pending Received Risk Factors for Resistance * Resident in a fdc or extended-care facility * Hospitalization for 48 hours or more within the past 90 days * Discharged from [facility] earlier this month * Immunocompromised * Started chemo for B-cell lymphoma on 10/16 * Antimicrobial use within the last 90 days * Bactrim SS daily * Levaquin 500mg (dates and indication unknown at this time) Assessment & Plan Assessment 87 year old female fdc resident with b cell lymphoma. Presented to [facility] with hypoglycemia and hypothermia c/o chills, lightheadedness, nausea and diarrhea since initiation of chemo on 10/16. Vancomycin initiated for neutropenia and possible pulmonary source infection. * Blood cultures pending * Renal function at baseline Plan Vancomycin for treatment of pulmonary source/neutropenia Vancomycin IV * Loading dose: 2000 mg (25 mg/kg) * Maintenance dose: 1250 mg IV (15 mg/kg) every 16 hours * Goal trough level 15 to 20 mcg/mL * Trough level ordered for 10/29 @0730 Pt is also on Cefepime 2 gm IV q 12 hours. This is not a consult. Pharmacy will continue to follow and will adjust dose/frequency as necessary. Thank you.
--- NOTE | 2017-10-27 14:47 | Progress Note ---
Progress Note Date of Service Oct 27, 2017. Progress Note ID Consult Dictated #[id number] A/P: 1. Neutropenia - chemo induced -Follow cultures -Currently afebile -Follow wbc s/o neupogen -thank you
[2017-10-27 15:05] VITALS: BP 109/65; PULSE 63; TEMP 36.7; O2SAT 96
[2017-10-27 15:20] LABS: INFLUENZA B ANTIGEN Neg for Influ B (NEG)
[2017-10-27 15:29] VITALS: BMI 29.9
[2017-10-27] MEDS ORDERED: SODIUM CHLORIDE 0.9% 1000ML 1,000 ML IV SCH (15:30)
--- NOTE | 2017-10-27 17:47 | Gastrointestinal Consultation ---
Gastrointestinal Consultation Date of Consultation: Oct 27, 2017 Attending Physician: OWEN Pink Consulting Physician: Dr. Vargas Reason for Consultation: Elevated LFTs in Lymphoma, chemotherapy History of Present Illness Patient is a 87 year old female who was sent today from [facility] for hypothermia and hypoglycemia. She carries a hx of A-fib, DM-2, HTN, hyperlipidemia, Osteoporosis. GI is consulted for elevated LFTs. Ms. Loving presented with a cough in Jul 2017. Early this month, a CT of the chest reveled an 11cm mediastinal mass encasing the SVC, mets to lymph nodes in the left axillary area as well as three liver lesions suggestive of liver mets. 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 She started R- CEPP (Rituxan/cyclophosphamide/etoposide/prednisone/procarbazine) chemo on managed by Dr. Herr. This is now being held as pt is neutropenic, on Neupogen. LFTs are mildly elevated: T Bili 2.1, D bili 0.6. AST, ALT and Alk Phos are normal. A review of outpatient [facility] records show that these levels are similar to LFTs drawn on four occasions earlier this month. The patient denies biliary colic type abdominal pain or jaundice. She has chronic diarrhea since undergoing cholecystectomy in 2015. She tells me that she does not wish to undergo MRI or further chemotherapy, that it makes her too tired, and "not good." Past Medical/Surgical History Medical Problems: (1) Acute cholecystitis Status: Acute (2) Altered mental status Status: Acute (3) Hypothermia Status: Acute (4) Hypoxia Status: Acute (5) Leukocytosis Status: Acute (6) Mediastinal mass Status: Acute (7) RUQ abdominal pain Status: Acute (8) SVC syndrome Status: Acute Past Medical History: 1. A fib (warfarin recently held) 2. DM-2, diabetic neuropathy 3. HTN 4. Hyperlipidemia 5. Osteoporosis Past Surgical History: 1. Cholecystectomy 2. Bronchoscopy 3. Central line placement Family History Diabetes mellitus Social History Smoking Status: Never Smoker Alcohol Use: none Drug Use: none Marital Status: Housing Status: assisted living Occupation Status: retired Allergies Coded Allergies: No Known Allergies (Verified , 10/11/17) Current Medications Home Meds and Scripts Medications Dose Route/Sig Max Daily Dose Days Date Category Dose Instructions Zofran (Ondansetron HCl) 8 Mg Tab 8 Mg PO Q6H PRN 10/27/17 Reported GIVE PRN FOR BREAKTHROUGH NAUSEA Zofran (Ondansetron HCl) 8 Mg Tab 8 Mg PO QPM 10/27/17 Reported GIVE WITH DINNER Levaquin (Levofloxacin) 500 Mg Tab 500 Mg PO HS 10/27/17 Reported Bactrim 400MG/80MG (Trimethoprim/Sulfamethoxazole) Tab 1 Tab PO QAM 10/27/17 Reported Eliquis (Apixaban) 5 Mg Tab 5 Mg PO AMHS 10/27/17 Reported Zyloprim (Allopurinol) 300 Mg Tab 300 Mg PO QAM 10/27/17 Reported Acyclovir 400 Mg Tab 400 Mg PO Q12 10/27/17 Reported Mometasone Furoate (Mometasone Furoate (Nasal)) 50 Mcg/Act Spr 2 Sprays NA DAILY PRN 10/11/17 Reported Lopressor (Metoprolol Tartrate) 50 Mg Tab 50 Mg PO Q12 10/11/17 Reported Zestril (Lisinopril) 40 Mg Tab 40 Mg PO DAILY 10/11/17 Reported Synthroid (Levothyroxine Sodium) 125 Mcg Tab 125 Mcg PO DAILY 10/11/17 Reported Lantus (Insulin Glargine) 100 Unit/Ml Inj 10 Units SC HS 10/11/17 Reported Novolog (Insulin Aspart) 100 Units/Ml Inj 7 Units SC QPM 10/11/17 Reported SUPPER Novolog (Insulin Aspart) 100 Units/Ml Inj 5 Units SC BID 10/11/17 Reported AM & LUNCH Vitamin D (Cholecalciferol) 1,000 Unit Tab 1,000 Units PO DAILY 10/11/17 Reported Review of Systems Constitutional: + weakness, No fever, No chills, No sweats, No weight loss Eyes: No eye pain, No redness ENT: No sore throat, No trouble swallowing, No pain on swallowing Respiratory: No cough, No wheezing, No shortness of breath, No dyspnea on exertion Cardiac: No chest pain, No edema, No palpitations Abdomen: + see HPI, + diarrhea (chronic), No pain, No nausea, No vomiting, No GI bleeding Female : No dysuria Neuro: No memory loss, No weakness, No numbness/tingling, No vertigo, No balance problems Psych: No depression symptoms, No anxiety, No insomnia Heme: No abnormal bleeding/bruising, No night sweats Endo: No excessive thirst, No excessive urination Skin: No rash, No itch, No new/changing skin lesions, No jaundice Physical Exam Date Time Temp Pulse Resp B/P (MAP) Pulse Ox O2 Delivery O2 Flow Rate FiO2 10/27/17 15:05 36.7 63 20 109/65 (80) 96 Room Air 10/27/17 12:13 36.7 73 18 118/72 98 Room Air 10/27/17 11:45 97 22 123/48 100 10/27/17 10:57 91 24 132/40 100 Room Air 10/27/17 10:07 36.4 87 18 133/57 100 Room Air 10/27/17 08:37 64 10/27/17 08:23 34.9 82 18 142/99 100 Room Air General Appearance: no apparent distress Eyes: normal inspection, EOMI Neck: supple, no adenopathy, thyroid normal, no JVD Respiratory/Chest: chest non-tender, lungs clear, normal breath sounds, no accessory muscle use Cardiovascular: regular rate, rhythm, no JVD, no murmur Abdomen: normal bowel sounds, non tender, soft, no organomegaly Extremities: normal inspection, no pedal edema, normal capillary refill Neurologic/Psych: alert, normal mood/affect, oriented x 3 Skin: normal color, no jaundice, warm/dry, no rash Laboratory Results Last 24 Hours Test 10/27/17 08:28 10/27/17 09:04 10/27/17 09:08 10/27/17 10:08 Bedside Glucose 48 mg/dl 108 mg/dl 115 mg/dl White Blood Count 0.09 K/uL Red Blood Count 3.78 M/uL Hemoglobin 11.1 g/dL Hematocrit 32.5 % Mean Corpuscular Volume 86.0 fL Mean Corpuscular Hemoglobin 29.4 pg Mean Corpuscular Hemoglobin Concent 34.2 g/dl RDW Standard Deviation 43.1 fL RDW Coefficient of Variation 13.9 % Platelet Count 151 K/uL Mean Platelet Volume 10.0 fL Prothrombin Time 11.5 SECONDS Prothromb Time International Ratio 1.1 Activated Partial Thromboplast Time 28.7 SECONDS Partial Thromboplastin Ratio 1.1 Sodium Level 131 mmol/L Potassium Level 3.3 mmol/L Chloride Level 96 mmol/L Carbon Dioxide Level 28 mmol/L Anion Gap 7.0 mmol/L Blood Urea Nitrogen 23 mg/dl Creatinine 0.67 mg/dl Est Creatinine Clear Calc Drug Dose 59.0 ml/min Estimated GFR () 90.3 Estimated GFR (Non- 77.9 BUN/Creatinine Ratio 33.9 Random Glucose 74 mg/dl Estimated Average Glucose 163 mg/dl Hemoglobin A1c 7.3 % Calcium Level 7.7 mg/dl Magnesium Level 1.8 mg/dl Total Bilirubin 2.1 mg/dl Direct Bilirubin 0.6 mg/dl Aspartate Amino Transf (AST/SGOT) 37 U/L Alanine Aminotransferase (ALT/SGPT) 53 U/L Alkaline Phosphatase 73 U/L Troponin I 0.030 ng/ml Total Protein 4.9 gm/dl Albumin 2.5 gm/dl Lipase 47 U/L Procalcitonin < 0.05 ng/ml Thyroid Stimulating Hormone (TSH) 1.180 uIu/ml Test 10/27/17 10:10 10/27/17 12:42 10/27/17 14:25 Urine Color YELLOW Urine Appearance CLEAR Urine pH 7.0 Urine Specific [place] 1.010 Urine Protein NEG Urine Glucose (UA) NEG Urine Ketones NEG Urine Occult Blood NEG Urine Nitrite NEG Urine Bilirubin NEG Urine Urobilinogen POS Urine Leukocyte Esterase NEG Lactic Acid Level 3.1 mmol/L Influenza Type A Antigen Neg for Influ A Influenza Type B Antigen Neg for Influ B Impression Patient is a 87 year old female with 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 Her mild, stable bilirubin elevation is expected with chemotherapy. Her recent CT imaging of ([facility] records) on 10/13/16 w/o bile duct obstruction argues against obstruction at that time and because she has not had a significant increase her bilirubin since that time, she is very unlikely to have bile duct obstruction today. Her liver lesions are suggestive of metastatic disease. Still her synthetic function remains normal or near normal at this time with normal INR though albumin is low at 2.5. Plan If it would benefit the pt to dx or rule out liver mets, then would go forward with liver MRI. Otherwise, there is no benefit to further liver imaging at this time as there was no obstruction on very recent CT scan. Certainly her liver function is adequate to continue chemotherapy at this point if her neutropenia improves and the pt wishes for further chemotherapy. The pt told me that she does not wish to continue chemotherapy or to undergo liver MRI. I encouraged her to clarify her goals with the primary hospitalist team and her oncologist. I performed a history and physical examination of the patient. I have discussed the patient's case, impression and plan with MARGARITA Johnston on . Her note reflects my findings and plan. No worrisome elevation of liver enzymes. Cont care as per primary service. Gabe Vargas MD
[2017-10-27] MEDS: INSULIN ASPART 100 UNITS/ML 3 ML PEN SC SCH ×2 (18:37→21:00)
--- NOTE | 2017-10-27 18:56 | Progress Note ---
Progress Note Date of Service Oct 27, 2017. 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 Lab showed severe Neutropenia Cxray : shows decrease in size of mediastinal LN , decrease in size of rt sided pleural effusion pt meets SIRS criteria Hypothermic /neutropenic possible source of infection still not identified empiric Abx with Vancomycin /cefepime pt been on Acyclovir and Bactrim for virus and PCP prophylaxis ID eval requested cont Broad spectrum Abx puentes culture ordered Neutropenic precaution heme onc consult requested please see further documentation of Sigrid Arango PA-C for further discussion of other issues
--- NOTE | 2017-10-27 19:07 | INFECT. DISEASE CONSULTATION ---
DATE OF CONSULTATION: 10/27/2017 HISTORY OF PRESENT ILLNESS: This is an 87-year-old female with a recent diagnosis of large B cell lymphoma, is [facility] secondary to low blood sugar. In the ER, her blood sugar was 48. She was also found to be hypothermic with a temperature of 34.9 which has improved to normal. She has not had any fevers since admission. She was found to be neutropenic. She has recently undergone chemotherapy for lymphoma and is receiving Neupogen. She did receive a dose here today. Her white blood cell count was 0.09. Infectious diseases was consulted for neutropenia. She was placed on antibiotics and appears to be tolerating these well. She is also on prophylactic Bactrim and acyclovir. She recently was admitted to the hospital for facial swelling and was subsequently transferred to [facility] where she was found to have a mediastinal mass and superior vena cava syndrome. She did have an x-ray in the Emergency Room today which showed decreased right-sided mass. On my examination, she is out of bed to chair. She does not offer any complaints but she does not wish to have exam at this time. She denies any pain or fevers or chills. She was currently not on antibiotics prior to admission. PAST MEDICAL HISTORY: Significant for AFib, B cell lymphoma, neutropenia, type 2 diabetes, hyperlipidemia, hypertension, history of hypoglycemia, osteoporosis. SURGICAL HISTORY: As mentioned above. FAMILY HISTORY: Noncontributory. SOCIAL HISTORY: Significant for history of tobacco use. She currently [facility] a [facility]. ALLERGIES: She has no known drug allergies. MEDICATIONS: Include allopurinol, vitamin D, lisinopril, Bactrim, Neupogen Synthroid, vancomycin, cefepime, acyclovir, Lopressor, Zofran, Eliquis, NovoLog, Flonase, Zofran, Tylenol, milk of magnesia, Maalox, MiraLax and potassium. PHYSICAL EXAMINATION: VITAL SIGNS: She is afebrile, pulse 73, respiratory rate 18, blood pressure 118/72, oxygen saturation is 90% on room air. GENERAL: She is awake, alert and oriented x3. She is out of bed to chair. HEENT: Extraocular muscles are intact. Mucous membranes are moist. HEART: She is in AFib. LUNGS: She is in no respiratory distress. EXTREMITIES: She does have ulcerations on her lower extremities, she did not wish for exam of this. LABORATORY STUDIES: CBC today reveals a white blood cell count of 0.09, hemoglobin 11.1 and platelets are 151. Chemistry panel reveals sodium of 131, potassium 3.3, chloride 96, bicarbonate 28, BUN 23, creatinine 0.6, glucose is 74. LFTs are normal. Procalcitonin is negative. Lactate was elevated at 3.1. Urinalysis is negative. Flu is pending. Blood cultures are pending. Chest x-ray was negative. Bilateral lower extremity Dopplers were negative for clot. ASSESSMENT AND PLAN: Neutropenia. She has been afebrile since admission. Cultures are pending and I will follow the results of this.
[2017-10-27 19:39] LABS: CALCIUM 7.3 mg/dl (8.5-10.1); CREATININE 0.66 mg/dl (0.60-1.20); POTASSIUM 3.6 mmol/L (3.5-5.1)
[2017-10-27 19:52] LABS: HEMATOCRIT 27.2 % (37-47); HEMOGLOBIN 9.3 g/dL (12.0-16.0); MEAN CELL VOLUME 85.5 fL (80-100); MEAN CORPUSCULAR HEMOGLOBIN 29.2 pg (25-34); MEAN CORPUSCULAR HGB CONC 34.2 g/dl (32-36); MEAN PLATELET VOLUME 10.1 fL (7.4-10.4); NUCLEATED RED BLOOD CELL ABS 0.03 K/uL (0-0); PLATELET COUNT 143 K/uL (130-400); RED CELL DISTRIBUTION WIDTH CV 14.1 % (11.5-14.5); RED CELL DISTRIBUTION WIDTH SD 42.8 fL (36.4-46.3); WHITE BLOOD COUNT 0.47 K/uL (4.8-10.8)
[2017-10-27 20:10] VITALS: BP 98/58; PULSE 58; TEMP 36.7; O2SAT 97
[2017-10-27] MEDS: METOPROLOL TARTRATE 50 MG TAB PO SCH (21:00)
[2017-10-27] MEDS: APIXABAN 2.5 MG TAB PO SCH (21:07)
[2017-10-27] MEDS: ONDANSETRON 8 MG TAB PO SCH (21:08)
[2017-10-27] MEDS: ACYCLOVIR 400 MG TAB PO SCH (21:08)
[2017-10-27] MEDS: CEFEPIME IV 2,000 MG in SYRINGE 7.5 ML IV SCH (21:20)
--- NOTE | 2017-10-27 21:35 | Medical Consult ---
Consultation Date of Consultation: Oct 27, 2017. 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 She underwent FNA of the right paratracheal/mediastinal mass and pathology showed high grade/large B cell lymphoma . 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 DAY 8 Cytoxan was held. She was discharged to Rehab. outpatient labs showed severe neutropenia and she has been receiving daily neupogen injections since 10/25/17 and on bactrim and acyclovir prophylaxis. She denies any fever. She states that early this morning she had chills and felt generally weak and increased fatigue and "confused/out of it" She was transferred to ER due to hypothermia and hypoglycemia. She has soreness of her mouth and thrush on the palate. she denies any cough or shortness of breath at this time or any urinary complaints. She denies any nausea or vomiting She denies any abdominal pain at this time. She has diarrhea - states this has been for a long time She has abnormal lfts with elevated bilirubin levels. She states that she refuses MRI abdomen. 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, SVC syndrome Medical Problems: (1) Acute cholecystitis Status: Acute (2) Altered mental status Status: Acute (3) Hypothermia Status: Acute (4) Hypoxia Status: Acute (5) Leukocytosis Status: Acute (6) Mediastinal mass Status: Acute (7) RUQ abdominal pain Status: Acute (8) SVC syndrome Status: Acute Family History Diabetes mellitus recently in SNF since her recent discharge from [facility] former smoker, no alcohol or drugs Social History Smoking Status: Never Smoker Drug Use: none Occupation Status: retired Allergies Coded Allergies: No Known Allergies (Verified , 10/11/17) Current Inpatient Medications Current Inpatient Medications Medications (Trade) Dose Ordered Sig/Tyrese Route Start Time Stop Time Status Last Admin Dose Admin Acetaminophen (Tylenol Tab) 650 mg Q4H PRN PO 10/27/17 11:30 11/26/17 11:29 Al Hydrox/Mg Hydrox/Simethicone (Maalox Max Susp) 15 ml Q4H PRN PO 10/27/17 11:30 11/26/17 11:29 Magnesium Hydroxide (Milk Of Magnesia Susp) 30 ml Q12H PRN PO 10/27/17 11:30 11/26/17 11:29 Ondansetron HCl (Zofran Inj) 4 mg Q6H PRN IV 10/27/17 11:30 11/26/17 11:29 Polyethylene (Miralax Powder Packet) 17 gm DAILY PRN PO 10/27/17 11:30 11/26/17 11:29 Vancomycin HCl 1250 mg/Sodium Chloride 275 ml @ 125 mls/hr Q16H IV 10/28/17 00:00 11/03/17 11:59 Miscellaneous Information (Consult) 1 ea UD PRN N/A 10/27/17 11:30 11/26/17 11:29 Acyclovir (Zovirax Tab) 400 mg Q12 PO 10/27/17 21:00 11/26/17 20:59 Allopurinol (Zyloprim Tab) 300 mg QAM PO 10/28/17 09:00 11/27/17 08:59 Cholecalciferol (Vitamin D Tab) 1,000 inter.unit DAILY PO 10/28/17 09:00 11/27/17 08:59 Levothyroxine Sodium (Synthroid Tab) 125 mcg DAILYBB PO 10/28/17 06:00 11/27/17 05:59 Lisinopril (Zestril Tab) 40 mg DAILY PO 10/28/17 09:00 11/27/17 08:59 Metoprolol Tartrate (Lopressor Tab) 50 mg Q12 PO 10/27/17 21:00 11/26/17 20:59 Ondansetron HCl (Zofran Tab) 8 mg Q6H PRN PO 10/27/17 12:15 11/26/17 12:14 Ondansetron HCl (Zofran Tab) 8 mg QPM PO 10/27/17 21:00 11/26/17 20:59 Trimethoprim/ Sulfamethoxazole (Septra 400/80MG Tab) 1 tab QAM PO 10/28/17 09:00 11/27/17 08:59 Apixaban (Eliquis Tab) 5 mg BID PO 10/27/17 21:00 11/26/17 20:59 Fluticasone Propionate (Flonase Nasal [place]) 2 sprays DAILY PRN NA 10/27/17 13:41 11/26/17 13:40 Insulin Aspart (novoLOG ASPART) SLIDING SCALE If C... ACHS SC 10/27/17 16:15 11/26/17 16:14 10/27/17 18:37 5 UNITS Glucose (Glucose 40% Gel) 15-30 GRAMS 15 GRAMS... UD PRN PO 10/27/17 12:30 11/26/17 12:29 Glucose (Glucose Chew Tab) 4-8 Tablets 4 Tabl... UD PRN PO 10/27/17 12:30 11/26/17 12:29 Dextrose (Dextrose 50% 50ML Syringe) 25-50ML OF 50% DW IV FOR... UD PRN IV 10/27/17 12:30 11/26/17 12:29 Glucagon (Glucagon Inj) 1 mg UD PRN SQ 10/27/17 12:30 11/26/17 12:29 Filgrastim (Neupogen Sq) 300 mcg DAILY SQ 10/28/17 09:00 11/27/17 08:59 Cefepime HCl 2000 mg/Syringe 20 ml @ 5 mls/min Q12H IV 10/27/17 22:00 11/03/17 21:59 Sodium Chloride 1,000 ml @ 80 mls/hr [id number] IV 10/27/17 15:30 10/28/17 03:59 10/27/17 16:27 80 MLS/HR Review of Systems Constitutional: + chills (early this morning), + sweats (states occasionally but no drenching sweats), + weakness (generalized), + fatigue, No fever ENT: + sore throat, + problem reported (thrush), No unusual epistaxis, No nasal symptoms Respiratory: + shortness of breath (on exertion feels it has improved; she denies any shortness of breath at this time), + dyspnea on exertion (improved. ) , No cough, No sputum, No wheezing, No hemoptysis Cardiovascular: + edema, No chest pain, No palpitations Abdomen: + diarrhea, No pain, No nausea, No vomiting, No constipation, No GI bleeding Musculoskeletal: + swelling (legs, ), No joint pain Genitourinary - Female: No dysuria, No urinary frequency, No hematuria Endocrine: + fatigue Physical Exam Date Time Temp Pulse Resp B/P (MAP) Pulse Ox O2 Delivery O2 Flow Rate FiO2 10/27/17 20:10 36.7 58 20 98/58 (71) 97 Room Air 10/27/17 20:00 Room Air 10/27/17 16:00 Room Air 10/27/17 15:05 36.7 63 20 109/65 (80) 96 Room Air 10/27/17 12:13 36.7 73 18 118/72 98 Room Air 10/27/17 11:45 97 22 123/48 100 10/27/17 10:57 91 24 132/40 100 Room Air 10/27/17 10:07 36.4 87 18 133/57 100 Room Air 10/27/17 08:37 64 10/27/17 08:23 34.9 82 18 142/99 100 Room Air General Appearance: no apparent distress, + pertinent finding (chronically ill appearing, patient lying in bed, appears comfortable) Head: normocephalic, atraumatic ENT: + pertinent finding (+thrush ) Respiratory/Chest: + decreased breath sounds (at bases), + pertinent finding ( no wheezes or rhonchi) Cardiovascular: + irregularly irregular Abdomen/GI: non tender, soft, + pertinent finding (bowel sounds present, no guarding or rebound, no palpable splenomegaly) Extremities/Musculoskelatal: + pedal edema, + pertinent finding (+anasarca, + ecchymoses on right medial leg/thigh) Neurologic/Psych: alert, oriented x 3 Skin: warm/dry, + pertinent finding (+ecchymoses on the RLE) Lymphatic: + axillary node abnormality (left) Laboratory Results Last 24 Hours Test 10/27/17 08:28 10/27/17 09:04 10/27/17 09:08 10/27/17 10:08 Bedside Glucose 48 mg/dl 108 mg/dl 115 mg/dl White Blood Count 0.09 K/uL Red Blood Count 3.78 M/uL Hemoglobin 11.1 g/dL Hematocrit 32.5 % Mean Corpuscular Volume 86.0 fL Mean Corpuscular Hemoglobin 29.4 pg Mean Corpuscular Hemoglobin Concent 34.2 g/dl RDW Standard Deviation 43.1 fL RDW Coefficient of Variation 13.9 % Platelet Count 151 K/uL Mean Platelet Volume 10.0 fL Prothrombin Time 11.5 SECONDS Prothromb Time International Ratio 1.1 Activated Partial Thromboplast Time 28.7 SECONDS Partial Thromboplastin Ratio 1.1 Sodium Level 131 mmol/L Potassium Level 3.3 mmol/L Chloride Level 96 mmol/L Carbon Dioxide Level 28 mmol/L Anion Gap 7.0 mmol/L Blood Urea Nitrogen 23 mg/dl Creatinine 0.67 mg/dl Est Creatinine Clear Calc Drug Dose 59.0 ml/min Estimated GFR () 90.3 Estimated GFR (Non- 77.9 BUN/Creatinine Ratio 33.9 Random Glucose 74 mg/dl Estimated Average Glucose 163 mg/dl Hemoglobin A1c 7.3 % Calcium Level 7.7 mg/dl Magnesium Level 1.8 mg/dl Total Bilirubin 2.1 mg/dl Direct Bilirubin 0.6 mg/dl Aspartate Amino Transf (AST/SGOT) 37 U/L Alanine Aminotransferase (ALT/SGPT) 53 U/L Alkaline Phosphatase 73 U/L Troponin I 0.030 ng/ml Total Protein 4.9 gm/dl Albumin 2.5 gm/dl Lipase 47 U/L Procalcitonin < 0.05 ng/ml Thyroid Stimulating Hormone (TSH) 1.180 uIu/ml Test 10/27/17 10:10 10/27/17 12:42 10/27/17 14:25 10/27/17 16:26 Urine Color YELLOW Urine Appearance CLEAR Urine pH 7.0 Urine Specific [place] 1.010 Urine Protein NEG Urine Glucose (UA) NEG Urine Ketones NEG Urine Occult Blood NEG Urine Nitrite NEG Urine Bilirubin NEG Urine Urobilinogen POS Urine Leukocyte Esterase NEG Lactic Acid Level 3.1 mmol/L Influenza Type A Antigen Neg for Influ A Influenza Type B Antigen Neg for Influ B Bedside Glucose 194 mg/dl Test 10/27/17 19:14 White Blood Count 0.47 K/uL Red Blood Count 3.18 M/uL Hemoglobin 9.3 g/dL Hematocrit 27.2 % Mean Corpuscular Volume 85.5 fL Mean Corpuscular Hemoglobin 29.2 pg Mean Corpuscular Hemoglobin Concent 34.2 g/dl RDW Standard Deviation 42.8 fL RDW Coefficient of Variation 14.1 % Platelet Count 143 K/uL Mean Platelet Volume 10.1 fL Nucleated RBC Absolute Count (auto) 0.03 K/uL Nucleated Red Blood Cells % 7.4 % Sodium Level 129 mmol/L Potassium Level 3.6 mmol/L Chloride Level 97 mmol/L Carbon Dioxide Level 25 mmol/L Anion Gap 7.0 mmol/L Blood Urea Nitrogen 19 mg/dl Creatinine 0.66 mg/dl Est Creatinine Clear Calc Drug Dose 58.8 ml/min Estimated GFR () 90.8 Estimated GFR (Non- 78.3 BUN/Creatinine Ratio 29.6 Random Glucose 191 mg/dl Lactic Acid Level 2.2 mmol/L Calcium Level 7.3 mg/dl PET-CT scan 10/26/17 "13.8cm RUL masswith large right and smaller left pleural effusion - subjectively appeared smaller than on the 10/12/17 CT scan of chest Marked thickening in the distal stomach and duodenum with obscuration of the anterior margin of the right kidney and stranding in the right pericolic gutter - limited fdg [place] AT 3.78 extensive senescent and degenerative findings on ct " venous doppler 10/27/17 negative for DVT CXR: "1. Interval decrease in the size of the large right-sided mediastinal mass 2. Small pleural effusions right greater than left. No evidence of acute parenchymal consolidation 3. 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 recommend continue neupogen injections daily sc until her Absolute neutrophil count is >1000 for 3 consecutive days thrush : start diflucan 100mg daily abnormal LFTs: differential include ?heptotoxicity from chemo versus lymphoma involvement of liver - Recommend mri liver to evaluate liver lesions on her prior CT scan but she refused. 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 check iron tibc ferritin b12 folate . recommend rule out blood loss. recommend consider GI follow up for abnormal LFTS and marked thickening in distal esophagus and duodenum on her PET-CT scan if she agrees once her neutropenia has resolved. Recommend palliative care consult as well to discuss goals of care as overall prognosis is poor without treatment and patient states that she is not interested in receiving further chemotherapy treatment and she declines further chemotherapy. palliative steroids and radiation oncology can be consulted for palliative RT if she becomes symptomatic from the large mediastinal mass and therapeutic thoracentesis and diuretics can be considered if she becomes symptomatic from pleural effusions. continue prophylactic acyclovir She is on broad spectrum antimicrobials at this time. ID following. blood cultures pending diarrhea recommend check c diff Thank you for consult
[2017-10-27] MEDS ORDERED: CEFEPIME IV 2,000 MG in DEXTROSE 5% 100ML 100 ML IV SCH (22:00)
[2017-10-28] VITALS (8 sets, daily range): BP systolic 102–119; BP diastolic 50–67; PULSE 49–68; TEMP 36.3–38.1; O2SAT 91–98
[2017-10-28] MEDS: VANCOMYCIN INJ 1,250 MG in SODIUM CHLORIDE 0.9% 250ML 250 ML IV SCH ×2 (00:21→16:22)
[2017-10-28] MEDS: LEVOTHYROXINE 125 MCG TAB PO SCH (06:22)
[2017-10-28] MEDS: INSULIN ASPART 100 UNITS/ML 3 ML PEN SC SCH ×4 (07:00→21:00)
[2017-10-28 07:56] LABS: HEMATOCRIT 29.8 % (37-47); MEAN CELL VOLUME 86.4 fL (80-100); MEAN CORPUSCULAR HGB CONC 33.6 g/dl (32-36); NUCLEATED RED BLOOD CELL ABS 0.02 K/uL (0-0); PLATELET COUNT 150 K/uL (130-400); RED CELL DISTRIBUTION WIDTH CV 14.3 % (11.5-14.5); RED CELL DISTRIBUTION WIDTH SD 43.7 fL (36.4-46.3); WHITE BLOOD COUNT 1.58 K/uL (4.8-10.8)
[2017-10-28 08:31] LABS: ALBUMIN 2.2 gm/dl (3.4-5.0); CALCIUM 7.8 mg/dl (8.5-10.1); CREATININE 0.65 mg/dl (0.60-1.20); PHOSPHORUS 1.4 mg/dl (2.5-4.9); POTASSIUM 3.9 mmol/L (3.5-5.1)
[2017-10-28 08:32] LABS: TOTAL PROTEIN 4.7 gm/dl (6.4-8.2)
[2017-10-28] MEDS: METOPROLOL TARTRATE 50 MG TAB PO SCH ×2 (08:38→21:45)
[2017-10-28] MEDS: ACYCLOVIR 400 MG TAB PO SCH ×2 (08:38→21:45)
[2017-10-28] MEDS: CHOLECALCIFEROL 1000 INTER.UNIT TAB PO SCH (08:39)
[2017-10-28] MEDS: SULFAMETHOXAZOLE/TRIMETHOPRIM 400/80MG TAB PO SCH (08:39)
[2017-10-28] MEDS: APIXABAN 2.5 MG TAB PO SCH ×2 (08:39→21:45)
[2017-10-28] MEDS: FLUCONAZOLE 100 MG TAB PO SCH (08:40)
[2017-10-28] MEDS: ALLOPURINOL 300 MG TAB PO SCH (08:40)
[2017-10-28] MEDS ORDERED: LISINOPRIL 40 MG TAB PO SCH (09:00)
--- NOTE | 2017-10-28 09:17 | Clinical Documentation Query ---
LEAH Vanessa : CLINICAL DOCUMENTATION QUERY Patient is an 87 year old female admitted for evaluation of confusion in the setting of hypoglycemia (40 mg/dl). Confusion resolved with provision of oral glucose. As appropriate, consider altered mental status, a symptom, as a clinical indicator of the clinical diagnosis of encephalopathy. AMS is the hallmark symptom of encephalopathy. As appropriate, consider documentation as suggested below. Thank you. In your clinical opinion is this patient being managed for: ( ) Metabolic encephalopathy secondary to hypoglycemia, resolved ( ) Not Agree ( ) Other explanation of clinical findings (Please Explain) ( ) Unable to determine (Please Define) ( ) Need to Discuss The medical record reflects the following clinical findings, treatment, and risk factors. Clinical Indicators: As above Treatment: Oral glucose Risk Factors: Hypoglycemia Please clarify and document your clinical opinion in the progress notes and discharge summary. Terms such as "probable", "suspected", "likely", "questionable", "possible", or "still to be ruled out" are acceptable. IF IN AGREEMENT, YOU MUST DOCUMENT ABOVE DIAGNOSTIC STATEMENT IN DAILY PROGRESS NOTES AND DISCHARGE SUMMARY. This document is not part of the patient's record. Thank You, Jonah Shelley, RN [phone]
[2017-10-28] MEDS: FILGRASTIM 300 MCG/ML 1 ML VIAL SQ SCH (09:36)
[2017-10-28] MEDS: CEFEPIME IV 2,000 MG in SYRINGE 7.5 ML IV SCH ×2 (09:36→21:46)
--- NOTE | 2017-10-28 10:25 | Progress Note ---
Subjective Date of Service: Oct 28, 2017. Subjective Pt evaluation today including: conversation w/ patient, physical exam, chart review, lab review pt seen in followup, lethargic, moaning, does not answer questions. no fevers overnight. wbc increasing, on neupogen. remains on vanco. blood cultures pending. chart reviewed and she does not wish to have any additional chemo. palliative care consult pending. Problem List Medical Problems: (1) Acute cholecystitis Status: Acute (2) Altered mental status Status: Acute (3) Hypothermia Status: Acute (4) Hypoxia Status: Acute (5) Leukocytosis Status: Acute (6) Mediastinal mass Status: Acute (7) RUQ abdominal pain Status: Acute (8) SVC syndrome Status: Acute Objective Vital Signs Date Time Temp Pulse Resp B/P (MAP) Pulse Ox O2 Delivery O2 Flow Rate FiO2 10/28/17 07:12 36.8 68 20 102/63 (76) 91 Room Air 10/28/17 04:42 37.2 68 17 113/66 (82) 97 10/28/17 04:00 Room Air 10/28/17 00:05 36.5 64 18 110/50 (70) 97 10/28/17 00:00 Room Air 10/27/17 20:10 36.7 58 20 98/58 (71) 97 Room Air 10/27/17 20:00 Room Air 10/27/17 16:00 Room Air 10/27/17 15:05 36.7 63 20 109/65 (80) 96 Room Air 10/27/17 12:13 36.7 73 18 118/72 98 Room Air 10/27/17 11:45 97 22 123/48 100 10/27/17 10:57 91 24 132/40 100 Room Air Physical Exam General Appearance: no apparent distress, + pertinent finding (lethargic) Neck: supple Respiratory/Chest: normal breath sounds, no respiratory distress, + decreased breath sounds Cardiovascular: regular rate, rhythm Abdomen: soft Skin: normal color Laboratory Results Last 24 Hours Test 10/27/17 12:42 10/27/17 14:25 10/27/17 16:26 10/27/17 19:14 Lactic Acid Level 3.1 mmol/L 2.2 mmol/L Influenza Type A Antigen Neg for Influ A Influenza Type B Antigen Neg for Influ B Bedside Glucose 194 mg/dl White Blood Count 0.47 K/uL Red Blood Count 3.18 M/uL Hemoglobin 9.3 g/dL Hematocrit 27.2 % Mean Corpuscular Volume 85.5 fL Mean Corpuscular Hemoglobin 29.2 pg Mean Corpuscular Hemoglobin Concent 34.2 g/dl RDW Standard Deviation 42.8 fL RDW Coefficient of Variation 14.1 % Platelet Count 143 K/uL Mean Platelet Volume 10.1 fL Nucleated RBC Absolute Count (auto) 0.03 K/uL Nucleated Red Blood Cells % 7.4 % Sodium Level 129 mmol/L Potassium Level 3.6 mmol/L Chloride Level 97 mmol/L Carbon Dioxide Level 25 mmol/L Anion Gap 7.0 mmol/L Blood Urea Nitrogen 19 mg/dl Creatinine 0.66 mg/dl Est Creatinine Clear Calc Drug Dose 58.8 ml/min Estimated GFR () 90.8 Estimated GFR (Non- 78.3 BUN/Creatinine Ratio 29.6 Random Glucose 191 mg/dl Calcium Level 7.3 mg/dl Test 10/27/17 21:13 10/28/17 07:35 Bedside Glucose 137 mg/dl White Blood Count 1.58 K/uL Red Blood Count 3.45 M/uL Hemoglobin 10.0 g/dL Hematocrit 29.8 % Mean Corpuscular Volume 86.4 fL Mean Corpuscular Hemoglobin 29.0 pg Mean Corpuscular Hemoglobin Concent 33.6 g/dl Platelet Count 150 K/uL Mean Platelet Volume 10.0 fL RDW Standard Deviation 43.7 fL RDW Coefficient of Variation 14.3 % Nucleated RBC Absolute Count (auto) 0.02 K/uL Neutrophils % (Manual) 23.0 % Lymphocytes % (Manual) 49.6 % Monocytes % (Manual) 21.2 % Eosinophils % (Manual) 2.7 % Myelocytes % 3.5 % Nucleated Red Blood Cells % 1.6 % Neutrophils # (Manual) 0.36 K/uL Total Absolute Neutrophils 0.36 K/uL Lymphocytes # (Manual) 0.78 K/uL Total Absolute Lymphocytes 0.78 K/uL Monocytes # (Manual) 0.33 K/uL Eosinophils # (Manual) 0.04 K/uL Myelocytes # 0.06 K/uL Toxic Granulation 2+ Dohle Bodies 2+ Giant Platelets 2+ Polychromasia 1+ Echinocytes 1+ Sodium Level 133 mmol/L Potassium Level 3.9 mmol/L Chloride Level 100 mmol/L Carbon Dioxide Level 24 mmol/L Anion Gap 9.0 mmol/L Blood Urea Nitrogen 14 mg/dl Creatinine 0.65 mg/dl Est Creatinine Clear Calc Drug Dose 60.2 ml/min Estimated GFR () 91.2 Estimated GFR (Non- 78.7 BUN/Creatinine Ratio 21.0 Random Glucose 92 mg/dl Lactic Acid Level 2.3 mmol/L Calcium Level 7.8 mg/dl Phosphorus Level 1.4 mg/dl Magnesium Level 1.7 mg/dl Iron Level 32 mcg/dl Total Iron Binding Capacity 241 mcg/dl Ferritin 167.9 ng/ml Total Bilirubin 2.3 mg/dl Direct Bilirubin 0.6 mg/dl Aspartate Amino Transf (AST/SGOT) 23 U/L Alanine Aminotransferase (ALT/SGPT) 39 U/L Alkaline Phosphatase 66 U/L Total Protein 4.7 gm/dl Albumin 2.2 gm/dl Globulin 2.5 gm/dl Albumin/Globulin Ratio 0.9 Vitamin B12 Level 725 pg/mL Folate 4.88 ng/mL Assessment and Plan (1) Neutropenia Assessment & Plan: afebrile, hypothermia resolved. continue vanco, if blood cultures negative can stop. wbc increasing.
[2017-10-28] MEDS ORDERED: PHARMACY GLYCEMIC MGMT CONSULT PRN (11:08)
--- NOTE | 2017-10-28 11:15 | Pharmacy Progress Note ---
Glycemic Control Intl Consult Date of Service Oct 28, 2017. Scope Glycemic Pharmacist consulted by Dr Tineo on 10/28/17 for glycemic control and to write orders per [facility] inpatient glycemic control protocol Objective Weight (Kilograms): 80.500 Accuchecks BSG (last 24hrs): Test 10/27/17 16:26 10/27/17 19:14 10/27/17 21:13 10/28/17 06:28 Bedside Glucose 194 mg/dl (70-90) 137 mg/dl (70-90) 78 mg/dl (70-90) Random Glucose 191 mg/dl (70-99) Test 10/28/17 07:35 Random Glucose 92 mg/dl (70-99) Laboratory Data (last 24hrs) Test 10/27/17 19:14 10/28/17 07:35 Anion Gap 7.0 mmol/L 9.0 mmol/L BUN/Creatinine Ratio 29.6 21.0 Blood Urea Nitrogen 19 mg/dl 14 mg/dl Creatinine 0.66 mg/dl 0.65 mg/dl Potassium Level 3.6 mmol/L 3.9 mmol/L Sodium Level 129 mmol/L 133 mmol/L White Blood Count 0.47 K/uL 1.58 K/uL Red Blood Count 3.45 M/uL Hemoglobin 10.0 g/dL Hematocrit 29.8 % Mean Corpuscular Volume 86.4 fL Mean Corpuscular Hemoglobin 29.0 pg Mean Corpuscular Hemoglobin Concent 33.6 g/dl Platelet Count 150 K/uL Mean Platelet Volume 10.0 fL HbA1c Test 10/27/17 09:04 Hemoglobin A1c 7.3 % (4.5-5.6) H Recent Pertinent Medications Outpatient Anti-diabetic Regimen: * Lantus 10 units SQ qPM plus Novolog 5 BID and 7 units at night (total dose of 27 units) * A1c = 7.3 % 10/27/17 The patient is currently receiving: * Basal insulin: Lantus -- units every -- hours * Correctional Insulin: Novolog Correction per scale ACHS Goal Range: Low 140 mg/dL - High 160 mg/dL Correction Factor: 30 mg/dL/unit * Prandial insulin: Per carb ratio of 1 unit per 10 grams CHO consumed Risk Factors for Insulin Resistance: * Infection: neutropenia -currently receiving empiric vanco/cefepime * Diet: type 2 diabetic diet starting for lunch Assessment & Plan ASSESSMENT: * Ms Loving is an 87 y/o F with a PMH of large B cell lymphoma (diagnosed this year and just completed treatment with first course of chemotherapy), Afib on Eliquis, HTN, and well-controlled diabetes who presents with hypoglycemia and hypothermia. She is neutropenia. * Yesterday, patient received 5 units of Novolog and blood sugars ranged from 108-194 mg/dL. Patient self-corrected from 137 mg/dL last night to 78 mg/dL this morning. The lunch blood sugar increased to 142 mg/dL today. Restart Lantus 10 units SQ daily if blood sugar greater than 140 mg/dL. * Weight-based stress of 2 is reasonable to start on Novolog with goal range of 110-140 mg/dL secondary to co-morbidities and neutropenia. PLAN FOR INPATIENT GLYCEMIC CONTROL: * Basal insulin - Lantus 10 units SQ HS if blood sugar greater than 140 mg/dL * Correctional Insulin with NOVOLOG per scale ACHS or Q6hrs while NPO * Goal Range: Low 110 mg/dL - High 140 mg/dL * Correction Factor: 30 mg/dL/unit * Nutritional / Prandial insulin per carb ratio of 1 unit per 10 grams CHO consumed * Please note that the plan above was derived based on current level of insulin resistance and hospital stress. These recommendations are appropriate for inpatient admission only. Plan of care upon discharge will need to be reassessed to avoid potential outpatient hypo/hyperglycemia. Thank you.
[2017-10-28] MEDS ORDERED: MAGNESIUM SULFATE 1GM / D5W 1 GM in PREMIXED IN D5W 100 ML IV ONE (11:30)
[2017-10-28] MEDS: POT PHOSPHATE MONOBASIC W/ SOD TAB PO SCH ×4 (13:01→21:45)
--- NOTE | 2017-10-28 13:53 | Palliative Care Consultation ---
Consultation Date of Consultation: Oct 28, 2017. Requesting Physician: Dr. Tineo Attending Physician: Dr. Tineo Reason for Consultation: Goals of care History of Present Illness This 87 year old female patient with large B cell lymphoma presented to the hospital yesterday with hypoglycemia, hypothermia, and neutropenia. She recently was diagnosed with this lymphoma and mediastinal mass. She received a "mini round" of chemotherapy per the family and did not tolerate well. She is weak, fatigued and now neutropenic. She is on IV abx here in hospital until blood cultures result, also receiving electrolyte replacement. Dr. Evelyne Herr is following patient for oncology and recommended patient have MRI or US of the liver but patient refused. Patient is requesting palliative/hospice care at this point which Dr. Herr agreed with. Palliative care is consulted to establish goals of care. I met with patient, her daughter Aretha, son-in-law, and door core assembler, in room 233. Patient is awake, alert and oriented x4. She denies any c/o pain or SOB. Patient is very clear about her wishes which is to pursue hospice care once she leaves the hospital. She is fine with continuing current medical management while in hospital so she can be as well as possible before she leaves. I did give her the option of transitioning to comfort measures only if she wanted, she verbalized understanding. Patient will go to [facility] for placement and requested referral to [facility]. POLST form completed with patient and family. See plan below. Past Medical/Surgical History Medical History: Large B cell lymphoma Chemo-induced neutropenia DM type 2 Afib on Eliquis Htn HLD Hypoglycemia Osteoporosis Surgical History: Removal of cyst under right breast Social History Smoking Status: Never Smoker History of Alcohol Use: No Drug Use: none Housing Status: group home Occupation Status: retired Review of Systems Constitutional: + weakness, + fatigue ENT: No trouble swallowing Respiratory: No cough, No shortness of breath, No dyspnea on exertion Cardiac: No chest pain, No edema Abdomen: No pain, No nausea, No vomiting Neurologic: No problem reported Psychiatric: No anxiety Allergies Coded Allergies: No Known Allergies (Verified , 10/11/17) Medications Current Inpatient Medications Medications (Trade) Dose Ordered Sig/Tyrese Route Start Time Stop Time Status Last Admin Dose Admin Acetaminophen (Tylenol Tab) 650 mg Q4H PRN PO 10/27/17 11:30 11/26/17 11:29 Al Hydrox/Mg Hydrox/Simethicone (Maalox Max Susp) 15 ml Q4H PRN PO 10/27/17 11:30 11/26/17 11:29 Magnesium Hydroxide (Milk Of Magnesia Susp) 30 ml Q12H PRN PO 10/27/17 11:30 11/26/17 11:29 Ondansetron HCl (Zofran Inj) 4 mg Q6H PRN IV 10/27/17 11:30 11/26/17 11:29 Polyethylene (Miralax Powder Packet) 17 gm DAILY PRN PO 10/27/17 11:30 11/26/17 11:29 Vancomycin HCl 1250 mg/Sodium Chloride 275 ml @ 125 mls/hr Q16H IV 10/28/17 00:00 11/03/17 11:59 10/28/17 00:21 125 MLS/HR Miscellaneous Information (Consult) 1 ea UD PRN N/A 10/27/17 11:30 11/26/17 11:29 Acyclovir (Zovirax Tab) 400 mg Q12 PO 10/27/17 21:00 11/26/17 20:59 10/28/17 08:38 400 MG Allopurinol (Zyloprim Tab) 300 mg QAM PO 10/28/17 09:00 11/27/17 08:59 10/28/17 08:40 300 MG Cholecalciferol (Vitamin D Tab) 1,000 inter.unit DAILY PO 10/28/17 09:00 11/27/17 08:59 10/28/17 08:39 1,000 INTER.UNIT Levothyroxine Sodium (Synthroid Tab) 125 mcg DAILYBB PO 10/28/17 06:00 11/27/17 05:59 10/28/17 06:22 125 MCG Metoprolol Tartrate (Lopressor Tab) 50 mg Q12 PO 10/27/17 21:00 11/26/17 20:59 10/28/17 08:38 50 MG Ondansetron HCl (Zofran Tab) 8 mg Q6H PRN PO 10/27/17 12:15 11/26/17 12:14 Ondansetron HCl (Zofran Tab) 8 mg QPM PO 10/27/17 21:00 11/26/17 20:59 10/27/17 21:08 8 MG Trimethoprim/ Sulfamethoxazole (Septra 400/80MG Tab) 1 tab QAM PO 10/28/17 09:00 11/27/17 08:59 10/28/17 08:39 1 TAB Apixaban (Eliquis Tab) 5 mg BID PO 10/27/17 21:00 11/26/17 20:59 10/28/17 08:39 5 MG Fluticasone Propionate (Flonase Nasal [place]) 2 sprays DAILY PRN NA 10/27/17 13:41 11/26/17 13:40 Insulin Aspart (novoLOG ASPART) SLIDING SCALE If C... ACHS SC 10/27/17 16:15 11/26/17 16:14 10/28/17 12:33 6 UNITS Glucose (Glucose 40% Gel) 15-30 GRAMS 15 GRAMS... UD PRN PO 10/27/17 12:30 11/26/17 12:29 Glucose (Glucose Chew Tab) 4-8 Tablets 4 Tabl... UD PRN PO 10/27/17 12:30 11/26/17 12:29 Dextrose (Dextrose 50% 50ML Syringe) 25-50ML OF 50% DW IV FOR... UD PRN IV 10/27/17 12:30 11/26/17 12:29 Glucagon (Glucagon Inj) 1 mg UD PRN SQ 10/27/17 12:30 11/26/17 12:29 Filgrastim (Neupogen Sq) 300 mcg DAILY SQ 10/28/17 09:00 11/27/17 08:59 10/28/17 09:36 300 MCG Cefepime HCl 2000 mg/Syringe 20 ml @ 5 mls/min Q12H IV 10/27/17 22:00 11/03/17 21:59 10/28/17 09:36 5 MLS/MIN Fluconazole (Diflucan Tab) 100 mg QAM PO 10/28/17 09:00 11/27/17 08:59 10/28/17 08:40 100 MG Potassium/ Phosphorus/Sodium (Phospha 250 Neutral 155-852-130 Mg) 2 tab QID PO 10/28/17 11:00 11/27/17 10:59 10/28/17 13:01 2 TAB Miscellaneous Information (Consult Glycemic Management Pharmacy) 1 ea UD PRN N/A 10/28/17 11:08 11/27/17 11:07 Insulin Glargine (Lantus Solostar Pen) SEE PROTOCOL TEXT HS SC 10/28/17 21:00 11/27/17 20:59 Physical Exam Date Time Temp Pulse Resp B/P (MAP) Pulse Ox O2 Delivery O2 Flow Rate FiO2 10/28/17 11:36 36.3 49 20 110/55 (73) 98 Room Air 10/28/17 08:00 Room Air 10/28/17 07:12 36.8 68 20 102/63 (76) 91 Room Air 10/28/17 04:42 37.2 68 17 113/66 (82) 97 10/28/17 04:00 Room Air 10/28/17 00:05 36.5 64 18 110/50 (70) 97 10/28/17 00:00 Room Air 10/27/17 20:10 36.7 58 20 98/58 (71) 97 Room Air 10/27/17 20:00 Room Air 10/27/17 16:00 Room Air 10/27/17 15:05 36.7 63 20 109/65 (80) 96 Room Air General Appearance: WD/WN, no apparent distress ENT: hearing grossly normal Neck: supple, no JVD Respiratory: lungs clear, no respiratory distress, no accessory muscle use Cardiovascular: regular rate, rhythm, no edema Abdomen: normal bowel sounds, soft Neurologic/Psychiatric: alert, normal mood/affect, oriented x 3 Laboratory Results Last 24 Hours Test 10/27/17 14:25 10/27/17 16:26 10/27/17 19:14 10/27/17 21:13 Influenza Type A Antigen Neg for Influ A Influenza Type B Antigen Neg for Influ B Bedside Glucose 194 mg/dl 137 mg/dl White Blood Count 0.47 K/uL Red Blood Count 3.18 M/uL Hemoglobin 9.3 g/dL Hematocrit 27.2 % Mean Corpuscular Volume 85.5 fL Mean Corpuscular Hemoglobin 29.2 pg Mean Corpuscular Hemoglobin Concent 34.2 g/dl RDW Standard Deviation 42.8 fL RDW Coefficient of Variation 14.1 % Platelet Count 143 K/uL Mean Platelet Volume 10.1 fL Nucleated RBC Absolute Count (auto) 0.03 K/uL Nucleated Red Blood Cells % 7.4 % Sodium Level 129 mmol/L Potassium Level 3.6 mmol/L Chloride Level 97 mmol/L Carbon Dioxide Level 25 mmol/L Anion Gap 7.0 mmol/L Blood Urea Nitrogen 19 mg/dl Creatinine 0.66 mg/dl Est Creatinine Clear Calc Drug Dose 58.8 ml/min Estimated GFR () 90.8 Estimated GFR (Non- 78.3 BUN/Creatinine Ratio 29.6 Random Glucose 191 mg/dl Lactic Acid Level 2.2 mmol/L Calcium Level 7.3 mg/dl Test 10/28/17 06:28 10/28/17 07:35 Bedside Glucose 78 mg/dl White Blood Count 1.58 K/uL Red Blood Count 3.45 M/uL Hemoglobin 10.0 g/dL Hematocrit 29.8 % Mean Corpuscular Volume 86.4 fL Mean Corpuscular Hemoglobin 29.0 pg Mean Corpuscular Hemoglobin Concent 33.6 g/dl Platelet Count 150 K/uL Mean Platelet Volume 10.0 fL RDW Standard Deviation 43.7 fL RDW Coefficient of Variation 14.3 % Nucleated RBC Absolute Count (auto) 0.02 K/uL Neutrophils % (Manual) 23.0 % Lymphocytes % (Manual) 49.6 % Monocytes % (Manual) 21.2 % Eosinophils % (Manual) 2.7 % Myelocytes % 3.5 % Nucleated Red Blood Cells % 1.6 % Neutrophils # (Manual) 0.36 K/uL Total Absolute Neutrophils 0.36 K/uL Lymphocytes # (Manual) 0.78 K/uL Total Absolute Lymphocytes 0.78 K/uL Monocytes # (Manual) 0.33 K/uL Eosinophils # (Manual) 0.04 K/uL Myelocytes # 0.06 K/uL Toxic Granulation 2+ Dohle Bodies 2+ Giant Platelets 2+ Polychromasia 1+ Echinocytes 1+ Sodium Level 133 mmol/L Potassium Level 3.9 mmol/L Chloride Level 100 mmol/L Carbon Dioxide Level 24 mmol/L Anion Gap 9.0 mmol/L Blood Urea Nitrogen 14 mg/dl Creatinine 0.65 mg/dl Est Creatinine Clear Calc Drug Dose 60.2 ml/min Estimated GFR () 91.2 Estimated GFR (Non- 78.7 BUN/Creatinine Ratio 21.0 Random Glucose 92 mg/dl Lactic Acid Level 2.3 mmol/L Calcium Level 7.8 mg/dl Phosphorus Level 1.4 mg/dl Magnesium Level 1.7 mg/dl Iron Level 32 mcg/dl Total Iron Binding Capacity 241 mcg/dl Ferritin 167.9 ng/ml Total Bilirubin 2.3 mg/dl Direct Bilirubin 0.6 mg/dl Aspartate Amino Transf (AST/SGOT) 23 U/L Alanine Aminotransferase (ALT/SGPT) 39 U/L Alkaline Phosphatase 66 U/L Total Protein 4.7 gm/dl Albumin 2.2 gm/dl Globulin 2.5 gm/dl Albumin/Globulin Ratio 0.9 Vitamin B12 Level 725 pg/mL Folate 4.88 ng/mL Assessment & Plan Palliative Performance Scale: 40 % Problem list: Weakness Fatigue Electrolyte imbalance Large B cell lymphoma Neutropenia Goals of care Palliative care recs: -Patient would now like to be DNR. -After lengthy discussion with patient and family, patient has decided to pursue hospice care once she is discharged. -Plan is to go to [facility] on hospice, patient requested referral to [address] [place] [address]. -Patient remains neutropenic and is receiving IV abx as well as electrolyte replacement. She is okay with continuing current medical management while here in hospital. She would like to be as well as possible before she leaves. -POLST form completed by patient in the presence of her family and door core assembler: DNR, comfort measures only, abx with comfort as the goal, trial period of IVF with comfort as the goal but no feeding tube. Patient's daughter, Aretha, is surrogate decision maker. Thank you kindly for this consult. Please contact me with any further palliative care needs. Total time spent 70 minutes with >50% of time spent with patient and family counseling and discussing goals of care.
[2017-10-28 15:41] LABS: PHOSPHORUS 1.7 mg/dl (2.5-4.9)
--- NOTE | 2017-10-28 16:45 | Nephrology Progress Note ---
Nephrology Progress Note Date of Service: Oct 28, 2017. Subjective Discussed w/ Dr. Tineo and renal consult for hyponatremia on this pt cancelled. Objective Date Time Temp Pulse Resp B/P (MAP) Pulse Ox O2 Delivery O2 Flow Rate FiO2 10/28/17 12:00 Room Air 10/28/17 11:36 36.3 49 20 110/55 (73) 98 Room Air 10/28/17 08:00 Room Air 10/28/17 07:12 36.8 68 20 102/63 (76) 91 Room Air 10/28/17 04:42 37.2 68 17 113/66 (82) 97 10/28/17 04:00 Room Air 10/28/17 00:05 36.5 64 18 110/50 (70) 97 10/28/17 00:00 Room Air 10/27/17 20:10 36.7 58 20 98/58 (71) 97 Room Air 10/27/17 20:00 Room Air Physical Exam: General-[] Eyes-[] ENT-[] Neck-[] Lungs-[] Heart-[] Abdomen-[] Extremities-[] Neuro-[] Current Inpatient Medications Medications (Trade) Dose Ordered Sig/Tyrese Route Start Time Stop Time Status Last Admin Dose Admin Acetaminophen (Tylenol Tab) 650 mg Q4H PRN PO 10/27/17 11:30 11/26/17 11:29 Al Hydrox/Mg Hydrox/Simethicone (Maalox Max Susp) 15 ml Q4H PRN PO 10/27/17 11:30 11/26/17 11:29 Magnesium Hydroxide (Milk Of Magnesia Susp) 30 ml Q12H PRN PO 10/27/17 11:30 11/26/17 11:29 Ondansetron HCl (Zofran Inj) 4 mg Q6H PRN IV 10/27/17 11:30 11/26/17 11:29 Polyethylene (Miralax Powder Packet) 17 gm DAILY PRN PO 10/27/17 11:30 11/26/17 11:29 Vancomycin HCl 1250 mg/Sodium Chloride 275 ml @ 125 mls/hr Q16H IV 10/28/17 00:00 11/03/17 11:59 10/28/17 16:22 125 MLS/HR Miscellaneous Information (Consult) 1 ea UD PRN N/A 10/27/17 11:30 11/26/17 11:29 Acyclovir (Zovirax Tab) 400 mg Q12 PO 10/27/17 21:00 11/26/17 20:59 10/28/17 08:38 400 MG Allopurinol (Zyloprim Tab) 300 mg QAM PO 10/28/17 09:00 11/27/17 08:59 10/28/17 08:40 300 MG Cholecalciferol (Vitamin D Tab) 1,000 inter.unit DAILY PO 10/28/17 09:00 11/27/17 08:59 10/28/17 08:39 1,000 INTER.UNIT Levothyroxine Sodium (Synthroid Tab) 125 mcg DAILYBB PO 10/28/17 06:00 11/27/17 05:59 10/28/17 06:22 125 MCG Metoprolol Tartrate (Lopressor Tab) 50 mg Q12 PO 10/27/17 21:00 11/26/17 20:59 10/28/17 08:38 50 MG Ondansetron HCl (Zofran Tab) 8 mg Q6H PRN PO 10/27/17 12:15 11/26/17 12:14 Ondansetron HCl (Zofran Tab) 8 mg QPM PO 10/27/17 21:00 11/26/17 20:59 10/27/17 21:08 8 MG Trimethoprim/ Sulfamethoxazole (Septra 400/80MG Tab) 1 tab QAM PO 10/28/17 09:00 11/27/17 08:59 10/28/17 08:39 1 TAB Apixaban (Eliquis Tab) 5 mg BID PO 10/27/17 21:00 11/26/17 20:59 10/28/17 08:39 5 MG Fluticasone Propionate (Flonase Nasal [place]) 2 sprays DAILY PRN NA 10/27/17 13:41 11/26/17 13:40 Insulin Aspart (novoLOG ASPART) SLIDING SCALE If C... ACHS SC 10/27/17 16:15 11/26/17 16:14 10/28/17 12:33 6 UNITS Glucose (Glucose 40% Gel) 15-30 GRAMS 15 GRAMS... UD PRN PO 10/27/17 12:30 11/26/17 12:29 Glucose (Glucose Chew Tab) 4-8 Tablets 4 Tabl... UD PRN PO 10/27/17 12:30 11/26/17 12:29 Dextrose (Dextrose 50% 50ML Syringe) 25-50ML OF 50% DW IV FOR... UD PRN IV 10/27/17 12:30 11/26/17 12:29 Glucagon (Glucagon Inj) 1 mg UD PRN SQ 10/27/17 12:30 11/26/17 12:29 Filgrastim (Neupogen Sq) 300 mcg DAILY SQ 10/28/17 09:00 11/27/17 08:59 10/28/17 09:36 300 MCG Cefepime HCl 2000 mg/Syringe 20 ml @ 5 mls/min Q12H IV 10/27/17 22:00 11/03/17 21:59 10/28/17 09:36 5 MLS/MIN Fluconazole (Diflucan Tab) 100 mg QAM PO 10/28/17 09:00 11/27/17 08:59 10/28/17 08:40 100 MG Potassium/ Phosphorus/Sodium (Phospha 250 Neutral 155-852-130 Mg) 2 tab QID PO 10/28/17 11:00 11/27/17 10:59 10/28/17 15:26 2 TAB Miscellaneous Information (Consult Glycemic Management Pharmacy) 1 ea UD PRN N/A 10/28/17 11:08 11/27/17 11:07 Insulin Glargine (Lantus Solostar Pen) SEE PROTOCOL TEXT HS SC 10/28/17 21:00 11/27/17 20:59 Last 24 Hours Test 10/27/17 19:14 10/27/17 21:13 10/28/17 06:28 10/28/17 07:35 White Blood Count 0.47 K/uL 1.58 K/uL Red Blood Count 3.18 M/uL 3.45 M/uL Hemoglobin 9.3 g/dL 10.0 g/dL Hematocrit 27.2 % 29.8 % Mean Corpuscular Volume 85.5 fL 86.4 fL Mean Corpuscular Hemoglobin 29.2 pg 29.0 pg Mean Corpuscular Hemoglobin Concent 34.2 g/dl 33.6 g/dl RDW Standard Deviation 42.8 fL 43.7 fL RDW Coefficient of Variation 14.1 % 14.3 % Platelet Count 143 K/uL 150 K/uL Mean Platelet Volume 10.1 fL 10.0 fL Nucleated RBC Absolute Count (auto) 0.03 K/uL 0.02 K/uL Nucleated Red Blood Cells % 7.4 % 1.6 % Sodium Level 129 mmol/L 133 mmol/L Potassium Level 3.6 mmol/L 3.9 mmol/L Chloride Level 97 mmol/L 100 mmol/L Carbon Dioxide Level 25 mmol/L 24 mmol/L Anion Gap 7.0 mmol/L 9.0 mmol/L Blood Urea Nitrogen 19 mg/dl 14 mg/dl Creatinine 0.66 mg/dl 0.65 mg/dl Est Creatinine Clear Calc Drug Dose 58.8 ml/min 60.2 ml/min Estimated GFR () 90.8 91.2 Estimated GFR (Non- 78.3 78.7 BUN/Creatinine Ratio 29.6 21.0 Random Glucose 191 mg/dl 92 mg/dl Lactic Acid Level 2.2 mmol/L 2.3 mmol/L Calcium Level 7.3 mg/dl 7.8 mg/dl Bedside Glucose 137 mg/dl 78 mg/dl Neutrophils % (Manual) 23.0 % Lymphocytes % (Manual) 49.6 % Monocytes % (Manual) 21.2 % Eosinophils % (Manual) 2.7 % Myelocytes % 3.5 % Neutrophils # (Manual) 0.36 K/uL Total Absolute Neutrophils 0.36 K/uL Lymphocytes # (Manual) 0.78 K/uL Total Absolute Lymphocytes 0.78 K/uL Monocytes # (Manual) 0.33 K/uL Eosinophils # (Manual) 0.04 K/uL Myelocytes # 0.06 K/uL Toxic Granulation 2+ Dohle Bodies 2+ Giant Platelets 2+ Polychromasia 1+ Echinocytes 1+ Phosphorus Level 1.4 mg/dl Magnesium Level 1.7 mg/dl Iron Level 32 mcg/dl Total Iron Binding Capacity 241 mcg/dl Ferritin 167.9 ng/ml Total Bilirubin 2.3 mg/dl Direct Bilirubin 0.6 mg/dl Aspartate Amino Transf (AST/SGOT) 23 U/L Alanine Aminotransferase (ALT/SGPT) 39 U/L Alkaline Phosphatase 66 U/L Total Protein 4.7 gm/dl Albumin 2.2 gm/dl Globulin 2.5 gm/dl Albumin/Globulin Ratio 0.9 Vitamin B12 Level 725 pg/mL Folate 4.88 ng/mL Test 10/28/17 11:10 10/28/17 13:58 10/28/17 15:12 Bedside Glucose 142 mg/dl 160 mg/dl Lactic Acid Level 3.3 mmol/L Phosphorus Level 1.7 mg/dl Magnesium Level 1.9 mg/dl
[2017-10-28] MEDS: SODIUM CHLORIDE 0.9% 1000ML 1,000 ML IV SCH (18:09)
--- NOTE | 2017-10-28 19:38 | Progress Note ---
Medicine Progress Note Date & Time of Visit: Oct 28, 2017 at 19:26. Subjective patient seen resting in bed, comfortable states she feels better today, just tired denies dyspnea, chest pain, dizziness no cough, abdominal pain, problems with urination or BM denies other symptoms Objective Last 8 Hrs Date Time Temp Pulse Resp B/P (MAP) Pulse Ox O2 Delivery O2 Flow Rate FiO2 10/28/17 16:15 96 Room Air 10/28/17 16:05 36.8 53 18 116/51 (72) 96 Room Air 10/28/17 12:00 Room Air 10/28/17 11:36 36.3 49 20 110/55 (73) 98 Room Air Physical Exam: General- oriented x 3, not in distress, speaks in sentences with no effort Head- atraumatic Eyes- anicteric ENT- oropharynx clear Neck- supple, no JVD, no adenopathy Lungs- clear breath sounds bilaterally Heart- regular rhythm; no murmur, normal rate Abdomen- normal bowel sounds, soft, nontender Extremities- no pretibial edema, no calf tenderness; peripheral pulses intact Neuro- alert, oriented x 3; no gross focal deficits Skin- warm & dry Laboratory Results: Last 24 Hours Test 10/27/17 21:13 10/28/17 06:28 10/28/17 07:35 10/28/17 11:10 Bedside Glucose 137 mg/dl 78 mg/dl 142 mg/dl White Blood Count 1.58 K/uL Red Blood Count 3.45 M/uL Hemoglobin 10.0 g/dL Hematocrit 29.8 % Mean Corpuscular Volume 86.4 fL Mean Corpuscular Hemoglobin 29.0 pg Mean Corpuscular Hemoglobin Concent 33.6 g/dl Platelet Count 150 K/uL Mean Platelet Volume 10.0 fL RDW Standard Deviation 43.7 fL RDW Coefficient of Variation 14.3 % Nucleated RBC Absolute Count (auto) 0.02 K/uL Neutrophils % (Manual) 23.0 % Lymphocytes % (Manual) 49.6 % Monocytes % (Manual) 21.2 % Eosinophils % (Manual) 2.7 % Myelocytes % 3.5 % Nucleated Red Blood Cells % 1.6 % Neutrophils # (Manual) 0.36 K/uL Total Absolute Neutrophils 0.36 K/uL Lymphocytes # (Manual) 0.78 K/uL Total Absolute Lymphocytes 0.78 K/uL Monocytes # (Manual) 0.33 K/uL Eosinophils # (Manual) 0.04 K/uL Myelocytes # 0.06 K/uL Toxic Granulation 2+ Dohle Bodies 2+ Giant Platelets 2+ Polychromasia 1+ Echinocytes 1+ Sodium Level 133 mmol/L Potassium Level 3.9 mmol/L Chloride Level 100 mmol/L Carbon Dioxide Level 24 mmol/L Anion Gap 9.0 mmol/L Blood Urea Nitrogen 14 mg/dl Creatinine 0.65 mg/dl Est Creatinine Clear Calc Drug Dose 60.2 ml/min Estimated GFR () 91.2 Estimated GFR (Non- 78.7 BUN/Creatinine Ratio 21.0 Random Glucose 92 mg/dl Lactic Acid Level 2.3 mmol/L Calcium Level 7.8 mg/dl Phosphorus Level 1.4 mg/dl Magnesium Level 1.7 mg/dl Iron Level 32 mcg/dl Total Iron Binding Capacity 241 mcg/dl Ferritin 167.9 ng/ml Total Bilirubin 2.3 mg/dl Direct Bilirubin 0.6 mg/dl Aspartate Amino Transf (AST/SGOT) 23 U/L Alanine Aminotransferase (ALT/SGPT) 39 U/L Alkaline Phosphatase 66 U/L Total Protein 4.7 gm/dl Albumin 2.2 gm/dl Globulin 2.5 gm/dl Albumin/Globulin Ratio 0.9 Vitamin B12 Level 725 pg/mL Folate 4.88 ng/mL Test 10/28/17 13:58 10/28/17 15:12 10/28/17 16:07 Bedside Glucose 160 mg/dl 153 mg/dl Lactic Acid Level 3.3 mmol/L Phosphorus Level 1.7 mg/dl Magnesium Level 1.9 mg/dl Assessment & Plan This is an 87yo F with a PMH of Large B cell lymphoma (diagnosed in Oct 2017, chemo initiated 10/18), chemo-induced neutropenia, DM II, chronic A Fib (on Eliquis), HTN and other medical problems listed below who presents from [facility] this AM with hypoglycemia and hypothermia. Hypoglycemia, Hypothermia, Resolved r/o Infection - cultures pending on empiric Vanco + Cefepime - ID on board Pharmacy Glycemic control monitor Neutropenia, Likely from Chemo - ANC slightly increased - continue Neupogen Dr. Herr on board B cell lymphoma - discussed goals of care with patient at length she declines further chemo requesting Palliative Care consult, discussed with Palliative Care team -Cont acyclovir, bactrim, allopurinol for prophylaxis Hyperbilirubinemia: -T bili of 2.1, D bili 0.6 -Patient refused MRI, stating that she feels too tired -GI consulted -Liver lesions (from abd CT 10/13/16 ) suggestive of metastatic disease -Patient does not wish to undergo liver MRI or continue chemo because she feels too tired BLE swelling: -R>L BLE edema with clear drainage -Recently completed 5 day course of 20mg Po lasix -BLE dopplers negative for DVT - monitor Diarrhea: -Chronic but worse since initiation of chemo -Stool cultures, c diff pending - no diarrhea since admission A Fib: -A fib at 71 bpm on admission -Cont eliquis -Cont metoprolol for rate control HTN: -Cont lisinopril, metoprolol Hypothyroidism: -Cont levothyroxine HLD: -Cont statin DVT Ppx: Continue Eliquis Code status: DNR per patient PCP: Raudel Dispo: Discharge planning ordered for return to [facility] with Palliative Care Current Inpatient Medications: Current Inpatient Medications Medications (Trade) Dose Ordered Sig/Tyrese Route Start Time Stop Time Status Last Admin Dose Admin Acetaminophen (Tylenol Tab) 650 mg Q4H PRN PO 10/27/17 11:30 11/26/17 11:29 Al Hydrox/Mg Hydrox/Simethicone (Maalox Max Susp) 15 ml Q4H PRN PO 10/27/17 11:30 11/26/17 11:29 Magnesium Hydroxide (Milk Of Magnesia Susp) 30 ml Q12H PRN PO 10/27/17 11:30 11/26/17 11:29 Ondansetron HCl (Zofran Inj) 4 mg Q6H PRN IV 10/27/17 11:30 11/26/17 11:29 Polyethylene (Miralax Powder Packet) 17 gm DAILY PRN PO 10/27/17 11:30 11/26/17 11:29 Vancomycin HCl 1250 mg/Sodium Chloride 275 ml @ 125 mls/hr Q16H IV 10/28/17 00:00 11/03/17 11:59 10/28/17 16:22 125 MLS/HR Miscellaneous Information (Consult) 1 ea UD PRN N/A 10/27/17 11:30 11/26/17 11:29 Acyclovir (Zovirax Tab) 400 mg Q12 PO 10/27/17 21:00 11/26/17 20:59 10/28/17 08:38 400 MG Allopurinol (Zyloprim Tab) 300 mg QAM PO 10/28/17 09:00 11/27/17 08:59 10/28/17 08:40 300 MG Cholecalciferol (Vitamin D Tab) 1,000 inter.unit DAILY PO 10/28/17 09:00 11/27/17 08:59 10/28/17 08:39 1,000 INTER.UNIT Levothyroxine Sodium (Synthroid Tab) 125 mcg DAILYBB PO 10/28/17 06:00 11/27/17 05:59 10/28/17 06:22 125 MCG Metoprolol Tartrate (Lopressor Tab) 50 mg Q12 PO 10/27/17 21:00 11/26/17 20:59 10/28/17 08:38 50 MG Ondansetron HCl (Zofran Tab) 8 mg Q6H PRN PO 10/27/17 12:15 11/26/17 12:14 Ondansetron HCl (Zofran Tab) 8 mg QPM PO 10/27/17 21:00 11/26/17 20:59 10/27/17 21:08 8 MG Trimethoprim/ Sulfamethoxazole (Septra 400/80MG Tab) 1 tab QAM PO 10/28/17 09:00 11/27/17 08:59 10/28/17 08:39 1 TAB Apixaban (Eliquis Tab) 5 mg BID PO 10/27/17 21:00 11/26/17 20:59 10/28/17 08:39 5 MG Fluticasone Propionate (Flonase Nasal [place]) 2 sprays DAILY PRN NA 10/27/17 13:41 11/26/17 13:40 Insulin Aspart (novoLOG ASPART) SLIDING SCALE If C... ACHS SC 10/27/17 16:15 11/26/17 16:14 10/28/17 18:03 4 UNITS Glucose (Glucose 40% Gel) 15-30 GRAMS 15 GRAMS... UD PRN PO 10/27/17 12:30 11/26/17 12:29 Glucose (Glucose Chew Tab) 4-8 Tablets 4 Tabl... UD PRN PO 10/27/17 12:30 11/26/17 12:29 Dextrose (Dextrose 50% 50ML Syringe) 25-50ML OF 50% DW IV FOR... UD PRN IV 10/27/17 12:30 11/26/17 12:29 Glucagon (Glucagon Inj) 1 mg UD PRN SQ 10/27/17 12:30 11/26/17 12:29 Filgrastim (Neupogen Sq) 300 mcg DAILY SQ 10/28/17 09:00 11/27/17 08:59 10/28/17 09:36 300 MCG Cefepime HCl 2000 mg/Syringe 20 ml @ 5 mls/min Q12H IV 10/27/17 22:00 11/03/17 21:59 10/28/17 09:36 5 MLS/MIN Fluconazole (Diflucan Tab) 100 mg QAM PO 10/28/17 09:00 11/27/17 08:59 10/28/17 08:40 100 MG Potassium/ Phosphorus/Sodium (Phospha 250 Neutral 155-852-130 Mg) 2 tab QID PO 10/28/17 11:00 11/27/17 10:59 10/28/17 18:01 2 TAB Miscellaneous Information (Consult Glycemic Management Pharmacy) 1 ea UD PRN N/A 10/28/17 11:08 11/27/17 11:07 Insulin Glargine (Lantus Solostar Pen) SEE PROTOCOL TEXT HS SC 10/28/17 21:00 11/27/17 20:59 Sodium Chloride 1,000 ml @ 75 mls/hr [id number] IV 10/28/17 17:45 11/27/17 17:44 10/28/17 18:09 75 MLS/HR
[2017-10-28] MEDS: INSULIN GLARGINE SOLOSTAR 100 UNITS/ML 3 ML PEN SC SCH (21:00)
--- NOTE | 2017-10-28 21:07 | Hematology/Oncology Prog Note ---
Hematology/Onc Progress Note Date of Service Oct 28, 2017. Diagnoses follow up DLBCL, chemo related neutropenia Subjective Patient seen and examined She states that she still feels tired and generally weak, but overall feels some improvement today no sweats no fever no nausea she denies any pain She states she had a good meeting with palliative care today, she states that she knows she definitely does not want to receive any futher chemo She is happy that WBC is improving today denies mouth soreness denies any abdominal pain she denies shortness of breath or chest pain and states that she is comfortable and not having any pain Review of Systems: Constitutional: + weakness (generalized), + fatigue, No fever, No chills, No sweats Respiratory: No cough, No sputum Cardiovascular: No chest pain Abdomen: No pain, No nausea, No vomiting Female : No dysuria Vital Signs Vital Signs Past 12 Hours Date Time Temp Pulse Resp B/P (MAP) Pulse Ox O2 Delivery O2 Flow Rate FiO2 10/28/17 16:15 96 Room Air 10/28/17 16:05 36.8 53 18 116/51 (72) 96 Room Air 10/28/17 12:00 Room Air 10/28/17 11:36 36.3 49 20 110/55 (73) 98 Room Air Physical Exam Head: normocephalic, atraumatic ENMT: pertinent finding (moist buccal mucosa) Neck: pertinent finding (no palpable adenopathy) Lungs: Auscuitation: no wheezing, decreased breath sounds (at bases) Cardiovascular: Heart Auscultation: RRR Abdomen: Inspection & Palpation: soft, non-distended, pertinent finding (nontender) Extremities: edema (bilateral) alert and oriented x 3 Laboratory Results Past 24 Hours Test 10/27/17 21:13 10/28/17 06:28 10/28/17 07:35 10/28/17 11:10 Range/Units Bedside Glucose 137 78 142 70-90 mg/dl White Blood Count 1.58 4.8-10.8 K/uL Red Blood Count 3.45 4.2-5.4 M/uL Hemoglobin 10.0 12.0-16.0 g/dL Hematocrit 29.8 37-47 % Mean Corpuscular Volume 86.4 80-100 fL Mean Corpuscular Hemoglobin 29.0 25-34 pg Mean Corpuscular Hemoglobin Concent 33.6 32-36 g/dl Platelet Count 150 130-400 K/uL Mean Platelet Volume 10.0 7.4-10.4 fL RDW Standard Deviation 43.7 36.4-46.3 fL RDW Coefficient of Variation 14.3 11.5-14.5 % Nucleated RBC Absolute Count (auto) 0.02 0-0 K/uL Neutrophils % (Manual) 23.0 % Lymphocytes % (Manual) 49.6 % Monocytes % (Manual) 21.2 % Eosinophils % (Manual) 2.7 % Myelocytes % 3.5 % Nucleated Red Blood Cells % 1.6 % Neutrophils # (Manual) 0.36 1.4-6.5 K/uL Total Absolute Neutrophils 0.36 1.4-6.5 K/uL Lymphocytes # (Manual) 0.78 1.2-3.4 K/uL Total Absolute Lymphocytes 0.78 1.2-3.4 K/uL Monocytes # (Manual) 0.33 0.11-0.59 K/uL Eosinophils # (Manual) 0.04 0-0.5 K/uL Myelocytes # 0.06 0-0 K/uL Toxic Granulation 2+ Dohle Bodies 2+ Giant Platelets 2+ Polychromasia 1+ Echinocytes 1+ Sodium Level 133 136-145 mmol/L Potassium Level 3.9 3.5-5.1 mmol/L Chloride Level 100 98-107 mmol/L Carbon Dioxide Level 24 21-32 mmol/L Anion Gap 9.0 3-11 mmol/L Blood Urea Nitrogen 14 7-18 mg/dl Creatinine 0.65 0.60-1.20 mg/dl Est Creatinine Clear Calc Drug Dose 60.2 ml/min Estimated GFR () 91.2 Estimated GFR (Non- 78.7 BUN/Creatinine Ratio 21.0 10-20 Random Glucose 92 70-99 mg/dl Lactic Acid Level 2.3 0.4-2.0 mmol/L Calcium Level 7.8 8.5-10.1 mg/dl Phosphorus Level 1.4 2.5-4.9 mg/dl Magnesium Level 1.7 1.8-2.4 mg/dl Iron Level 32 35-150 mcg/dl Total Iron Binding Capacity 241 250-450 mcg/dl Ferritin 167.9 8.0-388.0 ng/ml Total Bilirubin 2.3 0.2-1 mg/dl Direct Bilirubin 0.6 0-0.2 mg/dl Aspartate Amino Transf (AST/SGOT) 23 15-37 U/L Alanine Aminotransferase (ALT/SGPT) 39 12-78 U/L Alkaline Phosphatase 66 45-117 U/L Total Protein 4.7 6.4-8.2 gm/dl Albumin 2.2 3.4-5.0 gm/dl Globulin 2.5 2.5-4.0 gm/dl Albumin/Globulin Ratio 0.9 0.9-2 Vitamin B12 Level 725 211-911 pg/mL Folate 4.88 >5.38 ng/mL Test 10/28/17 13:58 10/28/17 15:12 10/28/17 16:07 Range/Units Bedside Glucose 160 153 70-90 mg/dl Lactic Acid Level 3.3 0.4-2.0 mmol/L Phosphorus Level 1.7 2.5-4.9 mg/dl Magnesium Level 1.9 1.8-2.4 mg/dl Assessment & Plan 87 year old female with recently 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 She has severe neutropenia but it is improving. she is afebrile receiving neupogen -Chemo related neutropenia: neutropenia improving.continue neutropenia precautions and recommend continue neupogen injections until ANC >1000 for 2 consecutive days. continue diflucan and acyclovir. -no transfusion indicated at this time. monitor CBCw/diff - low folate level: add folic acid supplement. low phos: she is received replacement - Abnormal LFTs: she refused imaging of the liver/abdomen, tired of imaging. Patient also states that she is not interested in receiving any further chemotherapy. She states that she is afraid of side effects and feels that since she has received chemotherapy that she has felt more tired and weak. She understands overall poor intermission coordinator prognosis and that her cancer will continue to grow without treatment She states that she wants to do palliative care. She does not feel that she can tolerate any further rituxan or chemotherapy treatment for her lymphoma and states that she is afraid of having any side effects. support provided and with her permission I called her daughter Aretha at to discuss and I informed her daughter of the PET-CT scan results and her lymphoma diagnosis and treatment options.Performance status remains quite poor at this time she would not be able to receive intensive regimen such as da R- EPOCH or R mini CHOP and she feels R-CEPP regimen was also too much to tolerate. She states that she concur with patient wishes and her decision for no further chemotherapy. please call if questions Discussed with Dr Ron today
[2017-10-28] MEDS: ONDANSETRON 8 MG TAB PO SCH (21:45)
[2017-10-29] VITALS (10 sets, daily range): BP systolic 91–151; BP diastolic 49–77; PULSE 48–73; TEMP 36.5–37.3; O2SAT 91–97
[2017-10-29] MEDS: LEVOTHYROXINE 125 MCG TAB PO SCH (05:51)
[2017-10-29] MEDS: INSULIN ASPART 100 UNITS/ML 3 ML PEN SC SCH ×4 (07:00→21:25)
[2017-10-29] MEDS ORDERED: VANCOMYCIN TROUGH ONE (07:30)
[2017-10-29 08:21] LABS: HEMATOCRIT 29.9 % (37-47); HEMOGLOBIN 10.1 g/dL (12.0-16.0); MEAN CELL VOLUME 87.9 fL (80-100); MEAN CORPUSCULAR HEMOGLOBIN 29.7 pg (25-34); MEAN CORPUSCULAR HGB CONC 33.8 g/dl (32-36); MEAN PLATELET VOLUME 10.3 fL (7.4-10.4); PLATELET COUNT 134 K/uL (130-400); RED CELL DISTRIBUTION WIDTH CV 15.2 % (11.5-14.5); RED CELL DISTRIBUTION WIDTH SD 45.3 fL (36.4-46.3); WHITE BLOOD COUNT 10.71 K/uL (4.8-10.8)
[2017-10-29 08:31] LABS: CREATININE 0.78 mg/dl (0.60-1.20)
[2017-10-29 08:32] LABS: ALBUMIN 2.1 gm/dl (3.4-5.0); CALCIUM 7.1 mg/dl (8.5-10.1); POTASSIUM 3.2 mmol/L (3.5-5.1); TOTAL PROTEIN 4.5 gm/dl (6.4-8.2)
[2017-10-29 08:50] LABS: PHOSPHORUS 2.8 mg/dl (2.5-4.9)
[2017-10-29] MEDS: SODIUM CHLORIDE 0.9% 1000ML 1,000 ML IV SCH ×2 (08:51→21:18)
[2017-10-29] MEDS: VANCOMYCIN INJ 1,250 MG in SODIUM CHLORIDE 0.9% 250ML 250 ML IV SCH ×2 (08:52→23:32)
[2017-10-29] MEDS: ACYCLOVIR 400 MG TAB PO SCH ×2 (08:54→21:21)
[2017-10-29] MEDS: ALLOPURINOL 300 MG TAB PO SCH (08:54)
[2017-10-29] MEDS: POT PHOSPHATE MONOBASIC W/ SOD TAB PO SCH ×2 (08:55→21:21)
[2017-10-29] MEDS: METOPROLOL TARTRATE 50 MG TAB PO SCH (08:55)
[2017-10-29] MEDS: CHOLECALCIFEROL 1000 INTER.UNIT TAB PO SCH (08:55)
[2017-10-29] MEDS: FoLIC ACID TAB 400 MCG TAB PO SCH (08:55)
[2017-10-29] MEDS: APIXABAN 2.5 MG TAB PO SCH ×2 (08:55→21:19)
[2017-10-29] MEDS: FLUCONAZOLE 100 MG TAB PO SCH (08:55)
[2017-10-29] MEDS: SULFAMETHOXAZOLE/TRIMETHOPRIM 400/80MG TAB PO SCH (08:56)
[2017-10-29] MEDS: FILGRASTIM 300 MCG/ML 1 ML VIAL SQ SCH (09:01)
[2017-10-29] MEDS: CEFEPIME IV 2,000 MG in SYRINGE 7.5 ML IV SCH ×2 (10:35→21:33)
[2017-10-29] MEDS ORDERED: MAGNESIUM SULFATE 1GM / D5W 1 GM in PREMIXED IN D5W 100 ML IV ONE (11:15)
[2017-10-29] MEDS ORDERED: POTASSIUM CHLORIDE 10 MEQ TABCR PO ONE (11:15)
--- NOTE | 2017-10-29 11:37 | Progress Note ---
Medicine Progress Note Date & Time of Visit: Oct 29, 2017 at 11:31. Subjective seen sitting up in bed, comfortable states she feels fine today denies headache, dizziness, cough,shortness of breath, abdominal pain, problems with urination/BM no other symptoms Objective Last 8 Hrs Date Time Temp Pulse Resp B/P (MAP) Pulse Ox O2 Delivery O2 Flow Rate FiO2 10/29/17 08:39 97 Room Air 10/29/17 07:46 36.6 52 18 128/72 (90) 10/29/17 04:21 36.5 60 20 138/70 (92) 94 Room Air 10/29/17 04:00 Room Air Physical Exam: General- oriented x 3, not in distress, speaks in sentences with no effort Eyes- anicteric Neck- supple, no JVD Lungs- clear breath sounds bilaterally, no rales/wheezes Heart- regular rhythm; no murmur, normal rate Abdomen- normal bowel sounds, soft, nontender Extremities- grade 1 lower leg edema, no calf tenderness; peripheral pulses intact Neuro- alert, oriented x 3; no gross focal deficits Skin- warm & dry Laboratory Results: Last 24 Hours Test 10/28/17 13:58 10/28/17 15:12 10/28/17 16:07 10/28/17 21:23 Bedside Glucose 160 mg/dl 153 mg/dl 128 mg/dl Lactic Acid Level 3.3 mmol/L Phosphorus Level 1.7 mg/dl Magnesium Level 1.9 mg/dl Test 10/28/17 21:29 10/29/17 06:49 10/29/17 07:32 10/29/17 10:51 Lactic Acid Level 3.3 mmol/L Bedside Glucose 79 mg/dl White Blood Count 10.71 K/uL Red Blood Count 3.40 M/uL Hemoglobin 10.1 g/dL Hematocrit 29.9 % Mean Corpuscular Volume 87.9 fL Mean Corpuscular Hemoglobin 29.7 pg Mean Corpuscular Hemoglobin Concent 33.8 g/dl Platelet Count 134 K/uL Mean Platelet Volume 10.3 fL RDW Standard Deviation 45.3 fL RDW Coefficient of Variation 15.2 % Neutrophils % (Manual) 68.2 % Lymphocytes % (Manual) 5.5 % Monocytes % (Manual) 19.1 % Metamyelocytes % 2.7 % Myelocytes % 0.9 % Promyelocytes % 2.7 % Blast Cells % 0.9 % Neutrophils # (Manual) 7.30 K/uL Total Absolute Neutrophils 7.30 K/uL Lymphocytes # (Manual) 0.59 K/uL Total Absolute Lymphocytes 0.59 K/uL Monocytes # (Manual) 2.05 K/uL Metamyelocytes # 0.29 K/uL Myelocytes # 0.10 K/uL Promyelocytes # 0.29 K/uL Blast Cells # 0.10 K/uL Blood Smear Review Toxic Granulation 3+ Dohle Bodies 1+ Polychromasia 1+ Sodium Level 136 mmol/L Potassium Level 3.2 mmol/L Chloride Level 102 mmol/L Carbon Dioxide Level 27 mmol/L Anion Gap 7.0 mmol/L Blood Urea Nitrogen 11 mg/dl Creatinine 0.78 mg/dl Est Creatinine Clear Calc Drug Dose 50.2 ml/min Estimated GFR () 78.1 Estimated GFR (Non- 67.4 BUN/Creatinine Ratio 14.6 Random Glucose 91 mg/dl Calcium Level 7.1 mg/dl Phosphorus Level 2.8 mg/dl Magnesium Level 1.7 mg/dl Total Bilirubin 2.1 mg/dl Direct Bilirubin 0.7 mg/dl Aspartate Amino Transf (AST/SGOT) 28 U/L Alanine Aminotransferase (ALT/SGPT) 37 U/L Alkaline Phosphatase 72 U/L Total Protein 4.5 gm/dl Albumin 2.1 gm/dl Globulin 2.4 gm/dl Albumin/Globulin Ratio 0.9 Vancomycin Level Trough 16.0 mcg/ml Assessment & Plan This is an 87yo F with a PMH of Large B cell lymphoma (diagnosed in Oct 2017, chemo initiated 10/18), chemo-induced neutropenia, DM II, chronic A Fib (on Eliquis), HTN and other medical problems listed below who presents from [facility] this AM with hypoglycemia and hypothermia. Hypoglycemia, Hypothermia, Resolved r/o Infection - blood culture negative so far - no hypo thermia, glycemica on empiric Vanco + Cefepime - if negative cultures , d/c abx tomorrow - ID on board Pharmacy Glycemic control monitor Neutropenia, Likely from Chemo - ANC improved to >1000 - continue Neupogen Dr. Herr on board B cell lymphoma - discussed goals of care with patient at length she declines further chemo requested Palliative Care consult, discussed with Palliative Care team plan for d/c to [facility] with Palliative/Hospice -Cont acyclovir, allopurinol for prophylaxis Hyperbilirubinemia: -T bili of 2.1, D bili 0.6 -Patient refused MRI, stating that she feels too tired -GI consulted -Liver lesions (from abd CT 10/13/16 ) suggestive of metastatic disease -Patient does not wish to undergo liver MRI or continue chemo because she feels too tired BLE swelling: -R>L BLE edema with clear drainage -Recently completed 5 day course of 20mg Po lasix -BLE dopplers negative for DVT - if lactic acid better, will give lasix Diarrhea: -Chronic but worse since initiation of chemo -Stool cultures, c diff pending - no diarrhea since admission A Fib: -A fib at 71 bpm on admission -Cont eliquis -Cont metoprolol for rate control HTN: -Cont lisinopril - decrease Metoprolol due to eddi Hypothyroidism: -Cont levothyroxine HLD: -Cont statin DVT Ppx: Continue Eliquis Code status: DNR per patient PCP: Raudel Dispo: Discharge planning ordered for return to [facility] with Hospice Current Inpatient Medications: Current Inpatient Medications Medications (Trade) Dose Ordered Sig/Tyrese Route Start Time Stop Time Status Last Admin Dose Admin Acetaminophen (Tylenol Tab) 650 mg Q4H PRN PO 10/27/17 11:30 11/26/17 11:29 Al Hydrox/Mg Hydrox/Simethicone (Maalox Max Susp) 15 ml Q4H PRN PO 10/27/17 11:30 11/26/17 11:29 Magnesium Hydroxide (Milk Of Magnesia Susp) 30 ml Q12H PRN PO 10/27/17 11:30 11/26/17 11:29 Ondansetron HCl (Zofran Inj) 4 mg Q6H PRN IV 10/27/17 11:30 11/26/17 11:29 Polyethylene (Miralax Powder Packet) 17 gm DAILY PRN PO 10/27/17 11:30 11/26/17 11:29 Vancomycin HCl 1250 mg/Sodium Chloride 275 ml @ 125 mls/hr Q16H IV 10/28/17 00:00 11/03/17 11:59 10/29/17 08:52 125 MLS/HR Miscellaneous Information (Consult) 1 ea UD PRN N/A 10/27/17 11:30 11/26/17 11:29 Acyclovir (Zovirax Tab) 400 mg Q12 PO 10/27/17 21:00 11/26/17 20:59 10/29/17 08:54 400 MG Allopurinol (Zyloprim Tab) 300 mg QAM PO 10/28/17 09:00 11/27/17 08:59 10/29/17 08:54 300 MG Cholecalciferol (Vitamin D Tab) 1,000 inter.unit DAILY PO 10/28/17 09:00 11/27/17 08:59 10/29/17 08:55 1,000 INTER.UNIT Levothyroxine Sodium (Synthroid Tab) 125 mcg DAILYBB PO 10/28/17 06:00 11/27/17 05:59 10/29/17 05:51 125 MCG Metoprolol Tartrate (Lopressor Tab) 50 mg Q12 PO 10/27/17 21:00 11/26/17 20:59 10/29/17 08:55 50 MG Ondansetron HCl (Zofran Tab) 8 mg Q6H PRN PO 10/27/17 12:15 11/26/17 12:14 Ondansetron HCl (Zofran Tab) 8 mg QPM PO 10/27/17 21:00 11/26/17 20:59 10/28/17 21:45 8 MG Apixaban (Eliquis Tab) 5 mg BID PO 10/27/17 21:00 11/26/17 20:59 10/29/17 08:55 5 MG Fluticasone Propionate (Flonase Nasal Rodanthe) 2 sprays DAILY PRN NA 10/27/17 13:41 11/26/17 13:40 Insulin Aspart (novoLOG ASPART) SLIDING SCALE If C... ACHS SC 10/27/17 16:15 11/26/17 16:14 10/28/17 18:03 4 UNITS Glucose (Glucose 40% Gel) 15-30 GRAMS 15 GRAMS... UD PRN PO 10/27/17 12:30 11/26/17 12:29 Glucose (Glucose Chew Tab) 4-8 Tablets 4 Tabl... UD PRN PO 10/27/17 12:30 11/26/17 12:29 Dextrose (Dextrose 50% 50ML Syringe) 25-50ML OF 50% DW IV FOR... UD PRN IV 10/27/17 12:30 11/26/17 12:29 Glucagon (Glucagon Inj) 1 mg UD PRN SQ 10/27/17 12:30 11/26/17 12:29 Filgrastim (Neupogen Sq) 300 mcg DAILY SQ 10/28/17 09:00 11/27/17 08:59 10/29/17 09:01 300 MCG Cefepime HCl 2000 mg/Syringe 20 ml @ 5 mls/min Q12H IV 10/27/17 22:00 11/03/17 21:59 10/29/17 10:35 5 MLS/MIN Fluconazole (Diflucan Tab) 100 mg QAM PO 10/28/17 09:00 11/27/17 08:59 10/29/17 08:55 100 MG Miscellaneous Information (Consult Glycemic Management Pharmacy) 1 ea UD PRN N/A 10/28/17 11:08 11/27/17 11:07 Insulin Glargine (Lantus Solostar Pen) SEE PROTOCOL TEXT HS SC 10/28/17 21:00 11/27/17 20:59 Sodium Chloride 1,000 ml @ 75 mls/hr [id number] IV 10/28/17 17:45 11/27/17 17:44 10/29/17 08:51 75 MLS/HR Folic Acid (Folvite Tab) 400 mcg QAM PO 10/29/17 09:00 11/28/17 08:59 10/29/17 08:55 400 MCG Magnesium Sulfate 1 gm/Prmx 100 ml @ 100 mls/hr NOW ONCE IV 10/29/17 11:15 10/29/17 12:14 Potassium/ Phosphorus/Sodium (Phospha 250 Neutral 155-852-130 Mg) 2 tab BID PO 10/29/17 21:00 11/27/17 10:59 Potassium Chloride (Klor-Con M10) 40 meq BID PO 10/29/17 21:00 11/28/17 20:59
--- NOTE | 2017-10-29 15:52 | Pharmacy Progress Note ---
Pharmacy Abx Dose Short Note Date of Service Oct 29, 2017. Assessment & Plan Assessment 87 year old female receiving Vancomycin for treatment of possible infection of unknown origin. Blood cultures pending. Pt remains afebrile Day # 3 of antimicrobial therapy. Plan Vancomycin * Trough level of 16 mcg/mL is therapeutic * Continue dose of 1250 mg IV every 16 hours * Goal trough level: 15-20 mcg/mL * No further levels ordered at this time. Pt is also on Cefepime 2 gm IV q 12 hours. The dose will need adjusted for renal dysfunction if tomorrow's crcl is below 60. Pharmacy will continue to follow and will adjust dose/frequency as necessary. Thank you.
[2017-10-29] MEDS: POTASSIUM CHLORIDE 10 MEQ TABCR PO SCH (21:19)
[2017-10-29] MEDS: METOPROLOL TARTRATE 25 MG TAB PO SCH (21:20)
[2017-10-29] MEDS: ONDANSETRON 8 MG TAB PO SCH (21:22)
[2017-10-29] MEDS: INSULIN GLARGINE SOLOSTAR 100 UNITS/ML 3 ML PEN SC SCH (21:24)
[2017-10-30] VITALS (9 sets, daily range): BP systolic 131–159; BP diastolic 68–85; PULSE 51–66; TEMP 36.7–37; O2SAT 90–95; Ht 162.6 cm; Wt 84.6 kg
[2017-10-30] MEDS: LEVOTHYROXINE 125 MCG TAB PO SCH (06:07)
[2017-10-30 06:55] LABS: ALBUMIN 2.1 gm/dl (3.4-5.0); CALCIUM 7.3 mg/dl (8.5-10.1); CREATININE 0.79 mg/dl (0.60-1.20); POTASSIUM 3.7 mmol/L (3.5-5.1)
[2017-10-30 06:56] LABS: HEMATOCRIT 30.6 % (37-47); HEMOGLOBIN 10.3 g/dL (12.0-16.0); MEAN CELL VOLUME 89.7 fL (80-100); MEAN CORPUSCULAR HEMOGLOBIN 30.2 pg (25-34); MEAN CORPUSCULAR HGB CONC 33.7 g/dl (32-36); MEAN PLATELET VOLUME 10.3 fL (7.4-10.4); NUCLEATED RED BLOOD CELL ABS 0.05 K/uL (0-0); PLATELET COUNT 152 K/uL (130-400); RED CELL DISTRIBUTION WIDTH CV 15.7 % (11.5-14.5); RED CELL DISTRIBUTION WIDTH SD 47.9 fL (36.4-46.3)
[2017-10-30 06:59] LABS: PHOSPHORUS 2.8 mg/dl (2.5-4.9); TOTAL PROTEIN 4.6 gm/dl (6.4-8.2)
[2017-10-30] MEDS: INSULIN ASPART 100 UNITS/ML 3 ML PEN SC SCH ×4 (07:00→21:14)
[2017-10-30] MEDS: POTASSIUM CHLORIDE 10 MEQ TABCR PO SCH ×2 (09:23→21:12)
[2017-10-30] MEDS: POT PHOSPHATE MONOBASIC W/ SOD TAB PO SCH ×2 (09:24→21:10)
[2017-10-30] MEDS: CHOLECALCIFEROL 1000 INTER.UNIT TAB PO SCH (09:24)
[2017-10-30] MEDS: FoLIC ACID TAB 400 MCG TAB PO SCH (09:24)
[2017-10-30] MEDS: FLUCONAZOLE 100 MG TAB PO SCH (09:24)
[2017-10-30] MEDS: APIXABAN 2.5 MG TAB PO SCH ×2 (09:25→21:10)
[2017-10-30] MEDS: ALLOPURINOL 300 MG TAB PO SCH (09:25)
[2017-10-30] MEDS: METOPROLOL TARTRATE 25 MG TAB PO SCH ×2 (09:25→21:10)
[2017-10-30] MEDS: ACYCLOVIR 400 MG TAB PO SCH ×2 (09:29→21:25)
[2017-10-30] MEDS: CEFEPIME IV 2,000 MG in SYRINGE 7.5 ML IV SCH (10:33)
[2017-10-30] MEDS: SODIUM CHLORIDE 0.9% 1000ML 1,000 ML IV SCH ×2 (12:25→16:27)
[2017-10-30] MEDS: FILGRASTIM 300 MCG/ML 1 ML VIAL SQ SCH (12:52)
--- NOTE | 2017-10-30 13:27 | Pharmacy Progress Note ---
Pharmacy Glycemic Short Note 2 Date of Service Oct 30, 2017. OUTPATIENT ANTIDIABETIC REGIMEN: * Lantus 10 units qHS plus Novolog 5 units twice daily and 7 units at night ( total dose of 27 units) ASSESSMENT: * Yesterday, Ms Loving received 20 units of insulin (with 10 units of Lantus) and blood sugars ranged from 13-083-206-151 mg/dL. Fasting today is 84 mg/dL which is improved from yesterday's 79 mg/dL. * For Lantus, the patient did receive 10 units of Lantus. Will lower the threshold for the patient to receive Lantus to if blood sugar less than 120 mg/ dL rather than 140 mg/dL. Appears that patient's hypoglycemia has resolved. * Novolog appears appropriate at this time. Can continue. * Ms Loving is an 87 y/o F with a PMH of large B cell lymphoma (diagnosed this year and just completed treatment with first course of chemotherapy), Afib on Eliquis, HTN, and well-controlled type 2 diabetes who presents with hypoglycemia and hypothermia. She is neutropenic. * Yesterday, patient received 5 units of Novolog and blood sugars ranged from 108-194 mg/dL. Patient self-corrected from 137 mg/dL last night to 78 mg/dL this morning. The lunch blood sugar increased to 142 mg/dL today. Restart Lantus 10 units SQ daily if blood sugar greater than 140 mg/dL. * Weight-based stress of 2 is reasonable to start on Novolog with goal range of 110-140 mg/dL secondary to co-morbidities and neutropenia. PLAN FOR INPATIENT GLYCEMIC CONTROL: * Basal insulin - Lantus 10 units SQ HS if blood sugar greater than 120 mg/dL * Correctional Insulin with NOVOLOG per scale ACHS or Q6hrs while NPO * Goal Range: Low 110 mg/dL - High 140 mg/dL * Correction Factor: 30 mg/dL/unit * Nutritional / Prandial insulin per carb ratio of 1 unit per 10 grams CHO consumed PLAN FOR DISCHARGE: * For an elderly woman on chemotherapy for large B cell lymphoma, an HbA1C of 7.3% is reasonable. Can continue home regimen as along as patient does not have any low blood sugars.
[2017-10-30] MEDS ORDERED: CEFEPIME CONSULT ACTIVE PRN (13:30)
[2017-10-30] MEDS: VANCOMYCIN INJ 1,250 MG in SODIUM CHLORIDE 0.9% 250ML 250 ML IV SCH (16:26)
--- NOTE | 2017-10-30 18:40 | DIAGNOSTIC IMAGING REPORT ---
CHEST ONE VIEW PORTABLE CLINICAL HISTORY: r/o effusion, pulmonary congestion/edema COMPARISON STUDY: Chest CT October 11, 2017 and chest radiograph October 27, 2017. FINDINGS: The known mediastinal mass has significantly decreased in size since chest CT and chest radiograph of October 11, 2017. There is moderate cardiomegaly. There is no pneumothorax. Small bilateral pleural effusions are noted. There are mild bibasilar opacities. There is no radiographic evidence of pulmonary edema. IMPRESSION: 1. Redemonstration of the known mediastinal mass which is similar to chest radiograph of October 27, 2017 but significantly decreased in size since exam of October 11, 2017. 2. Small bilateral pleural effusions with bibasilar opacities which favor atelectasis. 3. No evidence for pulmonary edema. Electronically signed by: Zac Colvin M.D. 10/30/2017 6:38 PM Dictated Date/Time: 10/30/2017 6:35 PM
[2017-10-30] MEDS: LORAZEPAM 0.5 MG TAB PO PRN (19:48)
[2017-10-30] MEDS: ONDANSETRON 8 MG TAB PO SCH (21:10)
[2017-10-30] MEDS: INSULIN GLARGINE SOLOSTAR 100 UNITS/ML 3 ML PEN SC SCH (21:15)
[2017-10-31 02:59] VITALS: BP 174/79; PULSE 64; TEMP 36.8; O2SAT 92
[2017-10-31] MEDS: LEVOTHYROXINE 125 MCG TAB PO SCH (05:36)
[2017-10-31 06:54] LABS: CALCIUM 7.6 mg/dl (8.5-10.1); CREATININE 0.77 mg/dl (0.60-1.20); POTASSIUM 4.2 mmol/L (3.5-5.1)
[2017-10-31 07:46] VITALS: BP 150/79; PULSE 61; TEMP 36.8; O2SAT 94
[2017-10-31 08:15] LABS: HEMATOCRIT 30.1 % (37-47); HEMOGLOBIN 9.9 g/dL (12.0-16.0); MEAN CELL VOLUME 89.3 fL (80-100); MEAN CORPUSCULAR HEMOGLOBIN 29.4 pg (25-34); MEAN CORPUSCULAR HGB CONC 32.9 g/dl (32-36); MEAN PLATELET VOLUME 9.8 fL (7.4-10.4); PLATELET COUNT 166 K/uL (130-400); RED CELL DISTRIBUTION WIDTH CV 16.4 % (11.5-14.5); RED CELL DISTRIBUTION WIDTH SD 48.7 fL (36.4-46.3); WHITE BLOOD COUNT 35.12 K/uL (4.8-10.8)
[2017-10-31] MEDS: ACYCLOVIR 400 MG TAB PO SCH ×2 (08:42→20:42)
[2017-10-31] MEDS: CHOLECALCIFEROL 1000 INTER.UNIT TAB PO SCH (08:42)
[2017-10-31] MEDS: ALLOPURINOL 300 MG TAB PO SCH (08:42)
[2017-10-31] MEDS: METOPROLOL TARTRATE 25 MG TAB PO SCH ×2 (08:42→20:44)
[2017-10-31] MEDS: POT PHOSPHATE MONOBASIC W/ SOD TAB PO SCH ×2 (08:42→20:41)
[2017-10-31] MEDS: FoLIC ACID TAB 400 MCG TAB PO SCH (08:42)
[2017-10-31] MEDS: FLUCONAZOLE 100 MG TAB PO SCH (08:43)
[2017-10-31] MEDS: APIXABAN 2.5 MG TAB PO SCH ×2 (08:43→20:40)
[2017-10-31] MEDS: POTASSIUM CHLORIDE 10 MEQ TABCR PO SCH ×2 (08:43→20:41)
[2017-10-31] MEDS: INSULIN ASPART 100 UNITS/ML 3 ML PEN SC SCH ×4 (08:46→20:43)
[2017-10-31] MEDS ORDERED: CEFEPIME IV 2,000 MG in SYRINGE 7.5 ML IV SCH (10:00)
[2017-10-31 12:01] VITALS: BP 103/51; PULSE 49; TEMP 36.5; O2SAT 95
[2017-10-31 15:53] VITALS: BP 119/75; PULSE 68; TEMP 36.8; O2SAT 95
[2017-10-31 16:00] VITALS: O2SAT 95
[2017-10-31 19:41] VITALS: BP 145/63; PULSE 66; TEMP 36.4; O2SAT 96
--- NOTE | 2017-10-31 19:52 | Progress Note ---
Medicine Progress Note Date & Time of Visit: Oct 31, 2017 at 19:49. Subjective delayed entry date of service 10/30/17 seen resting in bed, comfortable admits that she feels somewhat anxious denies shortness of breath, chest pain, palpitations, dizziness no abdominal pain, changes with urination/BM no other symptoms Objective Last 8 Hrs Date Time Temp Pulse Resp B/P (MAP) Pulse Ox O2 Delivery O2 Flow Rate FiO2 10/31/17 19:41 36.4 66 18 145/63 (90) 96 Room Air 10/31/17 16:00 95 Room Air 10/31/17 15:53 36.8 68 18 119/75 (90) 95 Room Air 10/31/17 12:01 36.5 49 16 103/51 (68) 95 Room Air 10/31/17 12:00 Room Air Physical Exam: General- oriented x 3, not in distress, speaks in sentences with no effort Eyes- anicteric Neck- no JVD Lungs- clear BS bilaterally, no wheezing, no rales Heart- regular rhythm; no murmur, normal rate Abdomen- normal bowel sounds, soft, nontender Extremities- grade 1 lower leg edema, no calf tenderness; peripheral pulses intact Neuro- alert, oriented x 3; no gross focal deficits Skin- warm & dry Laboratory Results: Last 24 Hours Test 10/30/17 20:15 10/31/17 05:49 10/31/17 06:04 10/31/17 06:43 Bedside Glucose 146 mg/dl 114 mg/dl White Blood Count 35.12 K/uL Red Blood Count 3.37 M/uL Hemoglobin 9.9 g/dL Hematocrit 30.1 % Mean Corpuscular Volume 89.3 fL Mean Corpuscular Hemoglobin 29.4 pg Mean Corpuscular Hemoglobin Concent 32.9 g/dl Platelet Count 166 K/uL Mean Platelet Volume 9.8 fL RDW Standard Deviation 48.7 fL RDW Coefficient of Variation 16.4 % Neutrophils % (Manual) 96.5 % Lymphocytes % (Manual) 0.9 % Monocytes % (Manual) 0.9 % Myelocytes % 1.7 % Neutrophils # (Manual) 33.89 K/uL Total Absolute Neutrophils 33.89 K/uL Lymphocytes # (Manual) 0.32 K/uL Total Absolute Lymphocytes 0.32 K/uL Monocytes # (Manual) 0.32 K/uL Myelocytes # 0.60 K/uL Toxic Granulation 3+ Toxic Vacuolation 1+ Dohle Bodies 1+ Echinocytes 1+ Sodium Level 137 mmol/L Potassium Level 4.2 mmol/L Chloride Level 106 mmol/L Carbon Dioxide Level 23 mmol/L Anion Gap 8.0 mmol/L Blood Urea Nitrogen 12 mg/dl Creatinine 0.77 mg/dl Est Creatinine Clear Calc Drug Dose 52.1 ml/min Estimated GFR () 79.3 Estimated GFR (Non- 68.5 BUN/Creatinine Ratio 15.8 Random Glucose 117 mg/dl Calcium Level 7.6 mg/dl Magnesium Level 2.0 mg/dl Test 10/31/17 11:15 10/31/17 16:24 Stool Occult Blood POSITIVE Bedside Glucose 145 mg/dl 169 mg/dl Assessment & Plan This is an 87yo F with a PMH of Large B cell lymphoma (diagnosed in Oct 2017, chemo initiated 10/18), chemo-induced neutropenia, DM II, chronic A Fib (on Eliquis), HTN and other medical problems listed below who presents from [facility] this AM with hypoglycemia and hypothermia. Hypoglycemia, Hypothermia, Resolved r/o Infection - blood culture negative - temperature remains normal d/c antibiotics and monitor - ID on board Pharmacy Glycemic control monitor Neutropenia, Likely from Chemo - ANC improved - d/c Neupogen Dr. Herr on board B cell lymphoma - discussed goals of care with patient at length she declines further chemo requested Palliative Care consult, discussed with Palliative Care team plan for d/c to [facility] with Palliative/Hospice -Cont acyclovir, allopurinol for prophylaxis Hyperbilirubinemia: -T bili of 2.1, D bili 0.6 -Patient refused MRI, stating that she feels too tired -GI consulted -Liver lesions (from abd CT 10/13/16 ) suggestive of metastatic disease -Patient does not wish to undergo liver MRI or continue chemo because she feels too tired BLE swelling: -R>L BLE edema with clear drainage -Recently completed 5 day course of 20mg Po lasix -BLE dopplers negative for DVT - if lactic acid better, will give lasix Diarrhea: -Chronic but worse since initiation of chemo -Stool cultures, c diff pending - no diarrhea since admission A Fib: -A fib at 71 bpm on admission -Cont eliquis -Cont metoprolol for rate control HTN: -Cont lisinopril - decrease Metoprolol due to eddi Hypothyroidism: -Cont levothyroxine HLD: -Cont statin DVT Ppx: Continue Eliquis Code status: DNR per patient PCP: Raudel Dispo: Discharge planning ordered for return to [facility] with Hospice Current Inpatient Medications: Current Inpatient Medications Medications (Trade) Dose Ordered Sig/Tyrese Route Start Time Stop Time Status Last Admin Dose Admin Acetaminophen (Tylenol Tab) 650 mg Q4H PRN PO 10/27/17 11:30 11/26/17 11:29 Al Hydrox/Mg Hydrox/Simethicone (Maalox Max Susp) 15 ml Q4H PRN PO 10/27/17 11:30 11/26/17 11:29 Magnesium Hydroxide (Milk Of Magnesia Susp) 30 ml Q12H PRN PO 10/27/17 11:30 11/26/17 11:29 Ondansetron HCl (Zofran Inj) 4 mg Q6H PRN IV 10/27/17 11:30 11/26/17 11:29 Polyethylene (Miralax Powder Packet) 17 gm DAILY PRN PO 10/27/17 11:30 11/26/17 11:29 Acyclovir (Zovirax Tab) 400 mg Q12 PO 10/27/17 21:00 11/26/17 20:59 10/31/17 08:42 400 MG Allopurinol (Zyloprim Tab) 300 mg QAM PO 10/28/17 09:00 11/27/17 08:59 10/31/17 08:42 300 MG Cholecalciferol (Vitamin D Tab) 1,000 inter.unit DAILY PO 10/28/17 09:00 11/27/17 08:59 10/31/17 08:42 1,000 INTER.UNIT Levothyroxine Sodium (Synthroid Tab) 125 mcg DAILYBB PO 10/28/17 06:00 11/27/17 05:59 10/31/17 05:36 125 MCG Ondansetron HCl (Zofran Tab) 8 mg Q6H PRN PO 10/27/17 12:15 11/26/17 12:14 Ondansetron HCl (Zofran Tab) 8 mg QPM PO 10/27/17 21:00 11/26/17 20:59 10/30/17 21:10 8 MG Apixaban (Eliquis Tab) 5 mg BID PO 10/27/17 21:00 11/26/17 20:59 10/31/17 08:43 5 MG Fluticasone Propionate (Flonase Nasal [place]) 2 sprays DAILY PRN NA 10/27/17 13:41 11/26/17 13:40 Insulin Aspart (novoLOG ASPART) SLIDING SCALE If C... ACHS SC 10/27/17 16:15 11/26/17 16:14 10/31/17 17:19 5 UNITS Glucose (Glucose 40% Gel) 15-30 GRAMS 15 GRAMS... UD PRN PO 10/27/17 12:30 11/26/17 12:29 Glucose (Glucose Chew Tab) 4-8 Tablets 4 Tabl... UD PRN PO 10/27/17 12:30 11/26/17 12:29 Dextrose (Dextrose 50% 50ML Syringe) 25-50ML OF 50% DW IV FOR... UD PRN IV 10/27/17 12:30 11/26/17 12:29 Glucagon (Glucagon Inj) 1 mg UD PRN SQ 10/27/17 12:30 11/26/17 12:29 Fluconazole (Diflucan Tab) 100 mg QAM PO 10/28/17 09:00 11/27/17 08:59 10/31/17 08:43 100 MG Miscellaneous Information (Consult Glycemic Management Pharmacy) 1 ea UD PRN N/A 10/28/17 11:08 11/27/17 11:07 Insulin Glargine (Lantus Solostar Pen) SEE PROTOCOL TEXT HS SC 10/28/17 21:00 11/27/17 20:59 10/30/17 21:15 10 UNITS Folic Acid (Folvite Tab) 400 mcg QAM PO 10/29/17 09:00 11/28/17 08:59 10/31/17 08:42 400 MCG Potassium/ Phosphorus/Sodium (Phospha 250 Neutral 155-852-130 Mg) 2 tab BID PO 10/29/17 21:00 11/27/17 10:59 10/31/17 08:42 2 TAB Potassium Chloride (Klor-Con M10) 40 meq BID PO 10/29/17 21:00 11/28/17 20:59 10/31/17 08:43 40 MEQ Metoprolol Tartrate (Lopressor Tab) 25 mg BID PO 10/29/17 21:00 11/26/17 20:59 10/31/17 08:42 25 MG Lorazepam (Ativan Tab) 0.25 mg Q6H PRN PO 10/30/17 19:30 11/29/17 19:29 10/30/17 19:48 0.25 MG
--- NOTE | 2017-10-31 19:53 | Progress Note ---
Medicine Progress Note Date & Time of Visit: Oct 31, 2017 at 19:52. Subjective states she feels fine overall, in good spirits family visiting denies complaints less anxious comfortable overall denies other symptoms Objective Last 8 Hrs Date Time Temp Pulse Resp B/P (MAP) Pulse Ox O2 Delivery O2 Flow Rate FiO2 10/31/17 19:41 36.4 66 18 145/63 (90) 96 Room Air 10/31/17 16:00 95 Room Air 10/31/17 15:53 36.8 68 18 119/75 (90) 95 Room Air 10/31/17 12:01 36.5 49 16 103/51 (68) 95 Room Air 10/31/17 12:00 Room Air Physical Exam: General- oriented x 3, not in distress, speaks in sentences with no effort Neck- no JVD Lungs- clear breath sounds bilaterally Heart- regular rhythm; no murmur, normal rate Abdomen- normal bowel sounds, soft, nontender Extremities- grade 1 lower leg edema, no calf tenderness; peripheral pulses intact Neuro- alert, oriented x 3; no gross focal deficits Skin- warm & dry Laboratory Results: Last 24 Hours Test 10/30/17 20:15 10/31/17 05:49 10/31/17 06:04 10/31/17 06:43 Bedside Glucose 146 mg/dl 114 mg/dl White Blood Count 35.12 K/uL Red Blood Count 3.37 M/uL Hemoglobin 9.9 g/dL Hematocrit 30.1 % Mean Corpuscular Volume 89.3 fL Mean Corpuscular Hemoglobin 29.4 pg Mean Corpuscular Hemoglobin Concent 32.9 g/dl Platelet Count 166 K/uL Mean Platelet Volume 9.8 fL RDW Standard Deviation 48.7 fL RDW Coefficient of Variation 16.4 % Neutrophils % (Manual) 96.5 % Lymphocytes % (Manual) 0.9 % Monocytes % (Manual) 0.9 % Myelocytes % 1.7 % Neutrophils # (Manual) 33.89 K/uL Total Absolute Neutrophils 33.89 K/uL Lymphocytes # (Manual) 0.32 K/uL Total Absolute Lymphocytes 0.32 K/uL Monocytes # (Manual) 0.32 K/uL Myelocytes # 0.60 K/uL Toxic Granulation 3+ Toxic Vacuolation 1+ Dohle Bodies 1+ Echinocytes 1+ Sodium Level 137 mmol/L Potassium Level 4.2 mmol/L Chloride Level 106 mmol/L Carbon Dioxide Level 23 mmol/L Anion Gap 8.0 mmol/L Blood Urea Nitrogen 12 mg/dl Creatinine 0.77 mg/dl Est Creatinine Clear Calc Drug Dose 52.1 ml/min Estimated GFR () 79.3 Estimated GFR (Non- 68.5 BUN/Creatinine Ratio 15.8 Random Glucose 117 mg/dl Calcium Level 7.6 mg/dl Magnesium Level 2.0 mg/dl Test 10/31/17 11:15 10/31/17 16:24 Stool Occult Blood POSITIVE Bedside Glucose 145 mg/dl 169 mg/dl Assessment & Plan This is an 87yo F with a PMH of Large B cell lymphoma (diagnosed in Oct 2017, chemo initiated 10/18), chemo-induced neutropenia, DM II, chronic A Fib (on Eliquis), HTN and other medical problems listed below who presents from [facility] this AM with hypoglycemia and hypothermia. Hypoglycemia, Hypothermia, Resolved, Infection Ruled out - blood culture negative - temperature remains normal d/c antibiotics and monitor, temp normal so far - ID on board Pharmacy Glycemic control monitor Neutropenia, Likely from Chemo - ANC improved - d/c Neupogen Dr. Herr on board B cell lymphoma - discussed goals of care with patient at length she declines further chemo requested Palliative Care consult, discussed with Palliative Care team plan for d/c to [facility] with Palliative/Hospice -Cont acyclovir, allopurinol for prophylaxis Hyperbilirubinemia: -T bili of 2.1, D bili 0.6 -Patient refused MRI, stating that she feels too tired -GI consulted -Liver lesions (from [facility] CT 10/13/16 ) suggestive of metastatic disease -Patient does not wish to undergo liver MRI or continue chemo because she feels too tired BLE swelling: -R>L BLE edema with clear drainage -Recently completed 5 day course of 20mg Po lasix -BLE dopplers negative for DVT - if lactic acid better, will give lasix Diarrhea: -Chronic but worse since initiation of chemo -Stool cultures,negative - no diarrhea since admission A Fib: -A fib at 71 bpm on admission -Cont eliquis -Cont metoprolol for rate control HTN: -Cont lisinopril - decrease Metoprolol due to eddi Hypothyroidism: -Cont levothyroxine HLD: -Cont statin DVT Ppx: Continue Eliquis Code status: DNR per patient PCP: Raudel Dispo: Discharge planning ordered for return to [facility] with Hospice Current Inpatient Medications: Current Inpatient Medications Medications (Trade) Dose Ordered Sig/Tyrese Route Start Time Stop Time Status Last Admin Dose Admin Acetaminophen (Tylenol Tab) 650 mg Q4H PRN PO 10/27/17 11:30 11/26/17 11:29 Al Hydrox/Mg Hydrox/Simethicone (Maalox Max Susp) 15 ml Q4H PRN PO 10/27/17 11:30 11/26/17 11:29 Magnesium Hydroxide (Milk Of Magnesia Susp) 30 ml Q12H PRN PO 10/27/17 11:30 11/26/17 11:29 Ondansetron HCl (Zofran Inj) 4 mg Q6H PRN IV 10/27/17 11:30 11/26/17 11:29 Polyethylene (Miralax Powder Packet) 17 gm DAILY PRN PO 10/27/17 11:30 11/26/17 11:29 Acyclovir (Zovirax Tab) 400 mg Q12 PO 10/27/17 21:00 11/26/17 20:59 10/31/17 08:42 400 MG Allopurinol (Zyloprim Tab) 300 mg QAM PO 10/28/17 09:00 11/27/17 08:59 10/31/17 08:42 300 MG Cholecalciferol (Vitamin D Tab) 1,000 inter.unit DAILY PO 10/28/17 09:00 11/27/17 08:59 10/31/17 08:42 1,000 INTER.UNIT Levothyroxine Sodium (Synthroid Tab) 125 mcg DAILYBB PO 10/28/17 06:00 11/27/17 05:59 10/31/17 05:36 125 MCG Ondansetron HCl (Zofran Tab) 8 mg Q6H PRN PO 10/27/17 12:15 11/26/17 12:14 Ondansetron HCl (Zofran Tab) 8 mg QPM PO 10/27/17 21:00 11/26/17 20:59 10/30/17 21:10 8 MG Apixaban (Eliquis Tab) 5 mg BID PO 10/27/17 21:00 11/26/17 20:59 10/31/17 08:43 5 MG Fluticasone Propionate (Flonase Nasal [place]) 2 sprays DAILY PRN NA 10/27/17 13:41 11/26/17 13:40 Insulin Aspart (novoLOG ASPART) SLIDING SCALE If C... ACHS SC 10/27/17 16:15 11/26/17 16:14 10/31/17 17:19 5 UNITS Glucose (Glucose 40% Gel) 15-30 GRAMS 15 GRAMS... UD PRN PO 10/27/17 12:30 11/26/17 12:29 Glucose (Glucose Chew Tab) 4-8 Tablets 4 Tabl... UD PRN PO 10/27/17 12:30 11/26/17 12:29 Dextrose (Dextrose 50% 50ML Syringe) 25-50ML OF 50% DW IV FOR... UD PRN IV 10/27/17 12:30 11/26/17 12:29 Glucagon (Glucagon Inj) 1 mg UD PRN SQ 10/27/17 12:30 11/26/17 12:29 Fluconazole (Diflucan Tab) 100 mg QAM PO 10/28/17 09:00 11/27/17 08:59 10/31/17 08:43 100 MG Miscellaneous Information (Consult Glycemic Management Pharmacy) 1 ea UD PRN N/A 10/28/17 11:08 11/27/17 11:07 Insulin Glargine (Lantus Solostar Pen) SEE PROTOCOL TEXT HS SC 10/28/17 21:00 11/27/17 20:59 10/30/17 21:15 10 UNITS Folic Acid (Folvite Tab) 400 mcg QAM PO 10/29/17 09:00 11/28/17 08:59 10/31/17 08:42 400 MCG Potassium/ Phosphorus/Sodium (Phospha 250 Neutral 155-852-130 Mg) 2 tab BID PO 10/29/17 21:00 11/27/17 10:59 10/31/17 08:42 2 TAB Potassium Chloride (Klor-Con M10) 40 meq BID PO 10/29/17 21:00 11/28/17 20:59 10/31/17 08:43 40 MEQ Metoprolol Tartrate (Lopressor Tab) 25 mg BID PO 10/29/17 21:00 11/26/17 20:59 10/31/17 08:42 25 MG Lorazepam (Ativan Tab) 0.25 mg Q6H PRN PO 10/30/17 19:30 11/29/17 19:29 10/30/17 19:48 0.25 MG
[2017-10-31] MEDS: ONDANSETRON 8 MG TAB PO SCH (20:41)
[2017-10-31] MEDS: INSULIN GLARGINE SOLOSTAR 100 UNITS/ML 3 ML PEN SC SCH ×2 (20:49→20:54)
[2017-10-31] MEDS: LORAZEPAM 0.5 MG TAB PO PRN (21:03)
[2017-11-01 00:27] VITALS: BP 146/61; PULSE 57; TEMP 36.8; O2SAT 95
[2017-11-01 03:31] VITALS: BP 157/74; PULSE 72; TEMP 36.4; O2SAT 94
[2017-11-01] MEDS: LEVOTHYROXINE 125 MCG TAB PO SCH (05:57)
[2017-11-01 07:19] LABS: CALCIUM 7.6 mg/dl (8.5-10.1); CREATININE 0.66 mg/dl (0.60-1.20); POTASSIUM 4.6 mmol/L (3.5-5.1)
[2017-11-01 08:08] VITALS: BP 136/69; PULSE 64; TEMP 36.7; O2SAT 96
[2017-11-01] MEDS: POT PHOSPHATE MONOBASIC W/ SOD TAB PO SCH (08:30)
[2017-11-01] MEDS: METOPROLOL TARTRATE 25 MG TAB PO SCH (08:30)
[2017-11-01] MEDS: ALLOPURINOL 300 MG TAB PO SCH (08:30)
[2017-11-01] MEDS: ACYCLOVIR 400 MG TAB PO SCH (08:30)
[2017-11-01] MEDS: FoLIC ACID TAB 400 MCG TAB PO SCH (08:30)
[2017-11-01] MEDS: CHOLECALCIFEROL 1000 INTER.UNIT TAB PO SCH (08:30)
[2017-11-01] MEDS: APIXABAN 2.5 MG TAB PO SCH (08:30)
[2017-11-01] MEDS: FLUCONAZOLE 100 MG TAB PO SCH (08:30)
[2017-11-01] MEDS: POTASSIUM CHLORIDE 10 MEQ TABCR PO SCH ×2 (08:31→08:42)
[2017-11-01] MEDS: INSULIN ASPART 100 UNITS/ML 3 ML PEN SC SCH ×2 (08:32→11:37)
--- NOTE | 2017-11-01 10:35 | Progress Note ---
Medicine Progress Note Date & Time of Visit: Nov 01, 2017 at 10:26. Subjective seen resting in bed, comfortable states she feels good overall slept well last night no shortness of breath denies pain noticed increased leg swelling today, no pain though denies other symptoms states she is ready for discharge today Objective Last 8 Hrs Date Time Temp Pulse Resp B/P (MAP) Pulse Ox O2 Delivery O2 Flow Rate FiO2 11/01/17 08:08 36.7 64 18 136/69 (91) 96 11/01/17 08:00 Room Air 11/01/17 04:00 Room Air 11/01/17 03:31 36.4 72 18 157/74 (101) 94 Room Air Physical Exam: General- oriented x 3, not in distress, speaks in sentences with no effort Neck- no JVD Lungs- clear breath sounds bilaterally, no rales/wheezes Heart- regular rhythm; no murmur, normal rate Abdomen- normal bowel sounds, soft, nontender Extremities- grade 1 lower leg edema- very small areas of seepage, no warmth/ tenderness, no calf tenderness; peripheral pulses intact Neuro- alert, oriented x 3; no gross focal deficits Skin- warm & dry Laboratory Results: Last 24 Hours Test 10/31/17 11:15 10/31/17 16:24 10/31/17 20:33 11/01/17 06:00 Stool Occult Blood POSITIVE Bedside Glucose 145 mg/dl 169 mg/dl 128 mg/dl Sodium Level 137 mmol/L Potassium Level 4.6 mmol/L Chloride Level 106 mmol/L Carbon Dioxide Level 28 mmol/L Anion Gap 3.0 mmol/L Blood Urea Nitrogen 11 mg/dl Creatinine 0.66 mg/dl Est Creatinine Clear Calc Drug Dose 60.8 ml/min Estimated GFR () 90.8 Estimated GFR (Non- 78.3 BUN/Creatinine Ratio 16.6 Random Glucose 69 mg/dl Calcium Level 7.6 mg/dl Test 11/01/17 06:44 Bedside Glucose 77 mg/dl Assessment & Plan This is an 87yo F with a PMH of 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 Hypoglycemia, Hypothermia, Resolved, Infection Ruled out - blood cultures negative - temperature remained normal discontinued Vancomycin and Aztreonam, no hypothermia/fever x 48 hours - ID was consulted Pharmacy Glycemic control was consulted - overall clinically improevd - reduce Lantus to 5 units , and change to AM dose instead of HS to prevent hypoglycemia discontinue scheduled Aspart, and change to Aspart Insulin Sliding Scale for now monitor BSGs closely Neutropenia, Likely from Chemo - Oncologist Dr. Herr consulted Neupogen 300mcg daily continued - ANC improved from 0.33 to 36 - discussed with Dr. Herr, recommend to hold Neupogen for now repeat CBC in 2-3 days, then monitor B cell lymphoma - discussed goals of care with patient at length she declines further chemo at this time requested Palliative Care consult, discussed with Palliative Care team patient prefers to return to [facility] with Palliative Care/Hospice Care Servic -Cont acyclovir, allopurinol Discontinue Levaquin, Bactrim prophylaxis per Oncology Hyperbilirubinemia: -T bili of 2.1, D bili 0.6 -GI consulted -Liver lesions (from abd CT 10/13/16 ) suggestive of metastatic disease -Patient does not wish to undergo liver MRI or continue chemo because she feels too tired Bilateral Lower Extremity Edema -R>L BLE edema with clear drainage -BLE dopplers negative for DVT - resume Lasix 20mg po daily monitor bilateral lower extremity edema and titrate Lasix accordingly Diarrhea: -Chronic but worse since initiation of chemo -Stool cultures,negative - no diarrhea since admission A Fib: - Metoprol decreased for bradycardia HR improved -Cont eliquis HTN: - BP on the lower side Lisinopril held decreased Metoprolol due to bradycardia monitor Hypothyroidism: -Cont levothyroxine HLD: -Cont statin DVT Ppx: Continue Eliquis Code status: DNR per patient PCP: Raudel Dispo: return to [facility] with Palliative Care/Hospice Care Service Current Inpatient Medications: Current Inpatient Medications Medications (Trade) Dose Ordered Sig/Tyrese Route Start Time Stop Time Status Last Admin Dose Admin Acetaminophen (Tylenol Tab) 650 mg Q4H PRN PO 10/27/17 11:30 11/26/17 11:29 Al Hydrox/Mg Hydrox/Simethicone (Maalox Max Susp) 15 ml Q4H PRN PO 10/27/17 11:30 11/26/17 11:29 Magnesium Hydroxide (Milk Of Magnesia Susp) 30 ml Q12H PRN PO 10/27/17 11:30 11/26/17 11:29 Ondansetron HCl (Zofran Inj) 4 mg Q6H PRN IV 10/27/17 11:30 11/26/17 11:29 Polyethylene (Miralax Powder Packet) 17 gm DAILY PRN PO 10/27/17 11:30 11/26/17 11:29 Acyclovir (Zovirax Tab) 400 mg Q12 PO 10/27/17 21:00 11/26/17 20:59 11/01/17 08:30 400 MG Allopurinol (Zyloprim Tab) 300 mg QAM PO 10/28/17 09:00 11/27/17 08:59 11/01/17 08:30 300 MG Cholecalciferol (Vitamin D Tab) 1,000 inter.unit DAILY PO 10/28/17 09:00 11/27/17 08:59 11/01/17 08:30 1,000 INTER.UNIT Levothyroxine Sodium (Synthroid Tab) 125 mcg DAILYBB PO 10/28/17 06:00 11/27/17 05:59 11/01/17 05:57 125 MCG Ondansetron HCl (Zofran Tab) 8 mg Q6H PRN PO 10/27/17 12:15 11/26/17 12:14 Ondansetron HCl (Zofran Tab) 8 mg QPM PO 10/27/17 21:00 11/26/17 20:59 10/31/17 20:41 8 MG Apixaban (Eliquis Tab) 5 mg BID PO 10/27/17 21:00 11/26/17 20:59 11/01/17 08:30 5 MG Fluticasone Propionate (Flonase Nasal [place]) 2 sprays DAILY PRN NA 10/27/17 13:41 11/26/17 13:40 Insulin Aspart (novoLOG ASPART) SLIDING SCALE If C... ACHS SC 10/27/17 16:15 11/26/17 16:14 11/01/17 08:32 4 UNITS Glucose (Glucose 40% Gel) 15-30 GRAMS 15 GRAMS... UD PRN PO 10/27/17 12:30 11/26/17 12:29 Glucose (Glucose Chew Tab) 4-8 Tablets 4 Tabl... UD PRN PO 10/27/17 12:30 11/26/17 12:29 Dextrose (Dextrose 50% 50ML Syringe) 25-50ML OF 50% DW IV FOR... UD PRN IV 10/27/17 12:30 11/26/17 12:29 Glucagon (Glucagon Inj) 1 mg UD PRN SQ 10/27/17 12:30 11/26/17 12:29 Fluconazole (Diflucan Tab) 100 mg QAM PO 10/28/17 09:00 11/27/17 08:59 11/01/17 08:30 100 MG Miscellaneous Information (Consult Glycemic Management Pharmacy) 1 ea UD PRN N/A 10/28/17 11:08 11/27/17 11:07 Folic Acid (Folvite Tab) 400 mcg QAM PO 10/29/17 09:00 11/28/17 08:59 11/01/17 08:30 400 MCG Potassium/ Phosphorus/Sodium (Phospha 250 Neutral 155-852-130 Mg) 2 tab BID PO 10/29/17 21:00 11/27/17 10:59 11/01/17 08:30 2 TAB Potassium Chloride (Klor-Con M10) 40 meq BID PO 10/29/17 21:00 11/28/17 20:59 10/31/17 20:41 40 MEQ Metoprolol Tartrate (Lopressor Tab) 25 mg BID PO 10/29/17 21:00 11/26/17 20:59 11/01/17 08:30 25 MG Lorazepam (Ativan Tab) 0.25 mg Q6H PRN PO 10/30/17 19:30 11/29/17 19:29 10/31/17 21:03 0.25 MG Furosemide (Lasix Tab) 20 mg QAM PO 11/02/17 09:00 12/02/17 08:59 UNV Furosemide (Lasix Tab) 20 mg 1019 ONCE PO 11/01/17 10:19 11/01/17 10:20 UNV Insulin Glargine (Lantus Solostar Pen) 5 units DAILY SC 11/02/17 09:00 11/27/17 20:59 UNV
[2017-11-01] MEDS ORDERED: DFL100 PO (10:48)
[2017-11-01] MEDS ORDERED: INSDGIPEN SC (10:48)
[2017-11-01] MEDS ORDERED: NVLGIPEN SC (10:48)
[2017-11-01] MEDS ORDERED: LSX20 PO (10:48)
[2017-11-01] MEDS ORDERED: ATV5 PO (10:48)
[2017-11-01] MEDS ORDERED: POTA10PO PO (10:48)
[2017-11-01] MEDS ORDERED: LPR25 PO (10:48)
--- NOTE | 2017-11-01 10:53 | Discharge Instructions ---
Discharge Instructions Date of Service Nov 01, 2017. Admission Reason for Admission: Hypoglycemia, Neutropenia Discharge Discharge Diagnosis / Problem: HYPOGLYCEMIA, HYPOTHERMIA Discharge Goals Goal(s): Diagnostic testing, Therapeutic intervention Activity Recommendations Activity Level: Assistance Required Therapies: Physical Therapy, Occupational Therapy . Additional Information Patient informed of condition: Yes Advance Directives: No (UNKNOWN) DNR: Yes Level of Care: Skilled Communicable Disease: No Prognosis: Stable Instructions / Follow-Up Instructions / Follow-Up MONITOR BLOOD GLUCOSE AC AND HS. MONITOR LEG EDEMA AND ADJUST LASIX ACCORDINGLY. MONITOR BLOOD PRESSURE AND HEART RATE. PLEASE REFER TO ACCOMPANYING HOSPITAL DISCHARGE SUMMARY FOR FURTHER DETAILS. Current Hospital Diet Patient's current hospital diet: Regular Diet, Diabetes Type 2 Diet Discharge Diet Recommended Diet: Diabetes Type 2 Diet Procedures Procedures Performed: CHEST XRAY, VENOUS DOPPLER STUDY Pending Studies Studies pending at discharge: yes List of pending studies: REPEAT CBC IN 2-3 DAYS. Physician Orders On Transfer Special Precautions: MONITOR BLOOD GLUCOSE AC AND HS. MONITOR LEG EDEMA AND ADJUST LASIX ACCORDINGLY. MONITOR BLOOD PRESSURE AND HEART RATE. PLEASE REFER TO ACCOMPANYING HOSPITAL DISCHARGE SUMMARY FOR FURTHER DETAILS. Laboratory Results Hemoglobin A1c Test 10/27/17 09:04 Range/Units Estimated Average Glucose 163 mg/dl Hemoglobin A1c 7.3 H 4.5-5.6 % Medical Emergencies . Who to Call and When: Medical Emergencies: If at any time you feel your situation is an emergency, please call 911 immediately. . Non-Emergent Contact Non-Emergency issues call your: Primary Care Provider, Oncologist Call Non-Emergent contact if: you have a fever, your pain is not controlled, your pain is worsening, you have any medication questions . . "Provider Documentation" section prepared by Juan Tineo. . Core Measure Problem Core Measures: None
[2017-11-01] MEDS ORDERED: FUROSEMIDE 20 MG TAB PO ONE (11:00)
--- NOTE | 2017-11-01 11:00 | Pharmacy Progress Note ---
Pharmacy Glycemic Sign Off Nt Date of Service Nov 01, 2017. Assessment & Plan ASSESSMENT: * Pharmacy was consulted by Dr Tineo on 10/28/17 for glycemic control and to write orders per [facility] inpatient glycemic control protocol. * Major changes made by pharmacy to antidiabetic regimen include: * none * Patient has been receiving ~20 units of insulin per day for adequate glycemic control * BSGs ranging 117 - 169 mg/dl * Regimen has only required minor adjustments over the past 48hrs to achieve this level of control * Do not anticipate further changes in patient status that would quickly deteriorate glycemic control (i.e. patient to be NPO for upcoming procedure, steroids tapering, starting tube feedings, etc). * Please see recommendations for outpatient antidiabetic regimen below. PLAN FOR INPATIENT GLYCEMIC CONTROL: * Continue basal insulin with Lantus 5 units SQ qAM * Continue NovoLog per scale ACHS/Q6hrs while NPO * Goal range = 110 - 140 mg/dl * CF = 30 mg/dl/unit * CR = 1 unit for ever 20 g CHO consumed * Pharmacy is signing off of glycemic consult and will no longer be making adjustments to inpatient regimen. Please feel free to re-consult if needed. Thank you. DISCHARGE RECOMMENDATIONS: * A1c 7.3 % on 10/27/17 - reasonable A1c for elderly women on chemotherapy for large B cell lymphoma * May continue home regimen as long as patient does not experience hypoglycemia as an outpatient. If experiencing AM hypoglycemia, I recommend decreasing Lantus to 5 units daily. I agree with changing Lantus dose from HS to qAM Thank you
--- NOTE | 2017-11-01 11:05 | Discharge Summary ---
Discharge Summary Date of Service Nov 01, 2017. Discharge Summary Admission Date: Oct 27, 2017 at 11:16 Discharge Date: Nov 01, 2017 Discharge Disposition: care home facility Principal Diagnosis: Hypoglycemia, Hypothermia, Resolved, Infection Ruled out Secondary Diagnoses/Problems: Please refer to hospital course below. Procedures: CHEST ONE VIEW PORTABLE CLINICAL HISTORY: Pain, radiating to the abdomen. COMPARISON STUDY: 10/11/2017 FINDINGS: The heart remains enlarged. There is been interval decrease in the size of the right mediastinal mass. There is a small subpulmonic right pleural effusion fusion. A trace left pleural effusion is also suspected. There is no focal pulmonary consolidation. There is no free intraperitoneal air.[ IMPRESSION: 1. Interval decrease in the size of the large right-sided mediastinal mass 2. Small pleural effusions right greater than left. No evidence of acute parenchymal consolidation 3. No evidence of free intraperitoneal air Electronically signed by: Vinod Lundberg M.D. 10/27/2017 9:02 AM ULTRASOUND BILATERAL LOWER EXTREMITY VENOUS CLINICAL HISTORY: Lower extremity edema. COMPARISON STUDY: No priors. TECHNIQUE: Real-time, grayscale, and color Doppler sonography of the deep veins of the right and left lower extremity was performed from the inguinal crease to the calf. Compression and augmentation were utilized. FINDINGS: There is no sonographic evidence of deep venous thrombosis identified in the right or left lower extremity. The common femoral, superficial femoral, and popliteal veins are patent and normally compressible bilaterally. The greater saphenous vein and the profunda femoris vein at the junction with the common femoral vein are clear in both legs. The visualized calf veins are patent bilaterally. IMPRESSION: There is no sonographic evidence of deep venous thrombosis identified in the right or left lower extremity. Electronically signed by: Satnam Bass M.D. 10/27/2017 2:04 PM CHEST ONE VIEW PORTABLE CLINICAL HISTORY: r/o effusion, pulmonary congestion/edema COMPARISON STUDY: Chest CT October 11, 2017 and chest radiograph October 27, 2017. FINDINGS: The known mediastinal mass has significantly decreased in size since chest CT and chest radiograph of October 11, 2017. There is moderate cardiomegaly. There is no pneumothorax. Small bilateral pleural effusions are noted. There are mild bibasilar opacities. There is no radiographic evidence of pulmonary edema. IMPRESSION: 1. Redemonstration of the known mediastinal mass which is similar to chest radiograph of October 27, 2017 but significantly decreased in size since exam of October 11, 2017. 2. Small bilateral pleural effusions with bibasilar opacities which favor atelectasis. 3. No evidence for pulmonary edema. Electronically signed by: Zac Colvin M.D. 10/30/2017 6:38 PM Consultations: Oncologist Dr. Herr Pending Studies/Follow-Up: Please refer to hospital course below. Medication Reconciliation New Medications: Potassium Chloride (Potassium Chloride) 20 Meq Pow 20 MEQ PO DAILY for 5 Days Fluconazole (Fluconazole) 100 Mg Tab 100 MG PO QAM for 2 Days, #2 TAB 0 Refills Furosemide (Furosemide) 20 Mg Tab 20 MG PO QAM for 5 Days Insulin Aspart (Novolog Flexpen) 100 Units/Ml Inj 0 UNITS SC ACHS for 30 Days Insulin Glargine (Lantus Solostar) 100 Unit/Ml Inj 5 UNITS SC QAM for 30 Days Lorazepam (Lorazepam) 0.5 Mg Tab 0.25 MG PO Q6H PRN for Anxiety for 7 Days Metoprolol Tartrate (Lopressor) 25 Mg Tab 25 MG PO BID for 30 Days Continued Medications: Acyclovir (Acyclovir) 400 Mg Tab 400 MG PO Q12 Allopurinol (Zyloprim) 300 Mg Tab 300 MG PO QAM Apixaban (Eliquis) 5 Mg Tab 5 MG PO AMHS Cholecalciferol (Vitamin D) 1,000 Unit Tab 1000 UNITS PO DAILY Levothyroxine Sodium (Synthroid) 125 Mcg Tab 125 MCG PO DAILY Mometasone Furoate (Nasal) (Mometasone Furoate) 50 Mcg/Act Spr 2 SPRAYS NA DAILY PRN for Nasal Congestion Ondansetron Hcl (Zofran) 8 Mg Tab 8 MG PO QPM GIVE WITH DINNER Ondansetron Hcl (Zofran) 8 Mg Tab 8 MG PO Q6H PRN for Nausea GIVE PRN FOR BREAKTHROUGH NAUSEA Discontinued Medications: Insulin Aspart (Novolog) 100 Units/Ml Inj 5 UNITS SC BID AM & LUNCH Insulin Aspart (Novolog) 100 Units/Ml Inj 7 UNITS SC QPM SUPPER Insulin Glargine (Lantus) 100 Unit/Ml Inj 10 UNITS SC HS Levofloxacin (Levaquin) 500 Mg Tab 500 MG PO HS Lisinopril (Zestril) 40 Mg Tab 40 MG PO DAILY Metoprolol Tartrate (Lopressor) (Lopressor) 50 Mg Tab 50 MG PO Q12 Trimethoprim/Sulfamethoxazole (Bactrim 400MG/80MG) Tab 1 TAB PO QAM Admission Information HPI (per Admitting provider): This is an 87yo F with a PMH of 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 Underwent EBUS with biopsy of mediastinal mass consistent with B cell lymphoma. Was started on RCEPP (Rituxan/cyclophosphamide/etoposide/prednisone/procarbazine) chemo on . Was discharged to [facility] with plans to follow up with Dr. Herr for further treatment. Was seen in clinic by REESE Sanchez and daily Neupogen injections were initiated for ANC <1,000. Was found to be hypoglycemic (BSG of 40) and hypothermic at [facility] this morning and was brought over by EMS for further evaluation. Was given oral glucose en route and BSG now 115. States that she was experiencing confusion prior to arrival but it has since resolved. Endorses chills, lightheadedness, nausea and diarrhea since initiation of chemo on 10/16. Has had decreased PO intake over the past few days but anti-emetics are helping with nausea. Denies fever, headache, near-syncope, visual changes, sore throat, chest pain, SOB, abdominal pain, vomiting, dysuria, constipation or weakness in extremities. BLE are more swollen than normal and she has noted clear drainage over the past few days. Was [place] [facility] [place] a 5 day course of lasix 20mg PO that she has completed. Physical Exam (per Admitting): General Appearance: WD/WN, no apparent distress, + pertinent finding ( chronically ill appearing) Head: normocephalic, atraumatic Eyes: normal inspection, PERRL, sclerae normal ENT: normal ENT inspection, hearing grossly normal, pharynx normal (dry mucous membranes ) Neck: supple, thyroid normal, trachea midline Respiratory/Chest: chest non-tender, lungs clear, normal breath sounds, no respiratory distress, no accessory muscle use Cardiovascular: no murmur, normal peripheral pulses, + irregularly irregular Abdomen/GI: non tender, soft, no organomegaly Back: normal inspection Extremities/Musculoskelatal: normal inspection, no calf tenderness, + pertinent finding (R>L BLE edema with clear drainage. Bruising on R leg. 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 Hypoglycemia, Hypothermia, Resolved, Infection Ruled out - ID consulted, started on empiric Vanco + Aztreonam blood cultures negative temperature remained normal discontinued Vancomycin and Aztreonam, no hypothermia/fever x 48 hours - Pharmacy Glycemic control was consulted AM BSG noted to be low reduce Lantus to 5 units , and change to AM dose instead of HS to prevent hypoglycemia discontinue scheduled Aspart, and change to Aspart Insulin Sliding Scale for now overall clinically improved monitor BSGs closely Neutropenia, Likely from Chemotherapy - Oncologist Dr. Herr consulted Neupogen 300mcg daily continued - ANC improved from 0.33 to 36 - discussed with Dr. Herr, recommend to hold Neupogen for now repeat CBC in 2-3 days, then monitor B cell lymphoma - discussed goals of care with patient at length she declines further chemo at this time requested Palliative Care consult, discussed with Palliative Care team patient prefers to return to [facility] with Palliative Care/Hospice Care Servic -Cont acyclovir, allopurinol Discontinue Levaquin, Bactrim prophylaxis per Oncology Hyperbilirubinemia: -T bili of 2.1, D bili 0.6 -GI consulted -Liver lesions (from abd CT 10/13/16 ) suggestive of metastatic disease -Patient does not wish to undergo liver MRI or continue chemo because she feels too tired Bilateral Lower Extremity Edema -R>L BLE edema with clear drainage -BLE dopplers negative for DVT - resume Lasix 20mg po daily monitor bilateral lower extremity edema and titrate Lasix accordingly Oral Thrush - 2 more days of Fluconazole to complete 7 day course Diarrhea: -Chronic but worse since initiation of chemo -Stool cultures,negative - no diarrhea since admission A Fib: - Metoprol decreased for bradycardia HR improved -Cont eliquis HTN: - BP on the lower side Lisinopril held decreased Metoprolol due to bradycardia monitor Hypothyroidism: -Cont levothyroxine HLD: -Cont statin DVT Ppx: Continue Eliquis Code status: DNR per patient PCP: Dr. Starks Dispo: return to [facility] with Palliative Care/Hospice Care Service Total time spent on discharge = 45 minutes This includes examination of the patient, discharge planning, medication reconciliation, and communication with other providers. Discharge Instructions Discharge Instructions Date of Service Nov 01, 2017. Admission Reason for Admission: Hypoglycemia, Neutropenia Discharge Discharge Diagnosis / Problem: HYPOGLYCEMIA, HYPOTHERMIA Discharge Goals Goal(s): Diagnostic testing, Therapeutic intervention Activity Recommendations Activity Level: Assistance Required Therapies: Physical Therapy, Occupational Therapy . Additional Information Patient informed of condition: Yes Advance Directives: No (UNKNOWN) DNR: Yes Level of Care: Skilled Communicable Disease: No Prognosis: Stable Instructions / Follow-Up Instructions / Follow-Up MONITOR BLOOD GLUCOSE AC AND HS. MONITOR LEG EDEMA AND ADJUST LASIX ACCORDINGLY. MONITOR BLOOD PRESSURE AND HEART RATE. PLEASE REFER TO ACCOMPANYING HOSPITAL DISCHARGE SUMMARY FOR FURTHER DETAILS. Current Hospital Diet Patient's current hospital diet: Regular Diet, Diabetes Type 2 Diet Discharge Diet Recommended Diet: Diabetes Type 2 Diet Procedures Procedures Performed: CHEST XRAY, VENOUS DOPPLER STUDY Pending Studies Studies pending at discharge: yes List of pending studies: REPEAT CBC IN 2-3 DAYS. Physician Orders On Transfer Special Precautions: MONITOR BLOOD GLUCOSE AC AND HS. MONITOR LEG EDEMA AND ADJUST LASIX ACCORDINGLY. MONITOR BLOOD PRESSURE AND HEART RATE. PLEASE REFER TO ACCOMPANYING HOSPITAL DISCHARGE SUMMARY FOR FURTHER DETAILS. Laboratory Results Hemoglobin A1c Test 10/27/17 09:04 Range/Units Estimated Average Glucose 163 mg/dl Hemoglobin A1c 7.3 H 4.5-5.6 % Medical Emergencies . Who to Call and When: Medical Emergencies: If at any time you feel your situation is an emergency, please call 911 immediately. . Non-Emergent Contact Non-Emergency issues call your: Primary Care Provider, Oncologist Call Non-Emergent contact if: you have a fever, your pain is not controlled, your pain is worsening, you have any medication questions . . "Provider Documentation" section prepared by Juan Tineo. . Core Measure Problem Core Measures: None
[2017-11-01 11:23] VITALS: BP 136/69; PULSE 64; TEMP 36.7; O2SAT 96
[2017-11-01 11:49] VITALS: BP 124/59; PULSE 58; TEMP 36.7; O2SAT 97
[2017-11-02] MEDS ORDERED: INSULIN GLARGINE SOLOSTAR 100 UNITS/ML 3 ML PEN SC SCH (09:00)
[2017-11-02] MEDS ORDERED: FUROSEMIDE 20 MG TAB PO SCH (09:00)
== END 2017-11-01 12:13 | disposition hospice, inpatient (51) | DRG 638 ==
LOC: EDBD 08:20 → C.EDA 08:23 → C.2T 11:16 → ENRESERV 11:27
PROVIDERS: ADMIT Hospitalist; ATTEND Internal Medicine
DX: E11.649 Type 2 diabetes mellitus with hypoglycemia without coma (principal); C85.10 Unspecified B-cell lymphoma, unspecified site; B37.0 Candidal stomatitis; I87.1 Compression of vein; D70.1 Agranulocytosis secondary to cancer chemotherapy; T45.1X5A Adverse effect of antineoplastic and immunosuppressive drugs, initial encounter; R68.0 Hypothermia, not associated with low environmental temperature; R41.82 Altered mental status, unspecified; R79.89 Other specified abnormal findings of blood chemistry; E80.6 Other disorders of bilirubin metabolism; M79.89 Other specified soft tissue disorders; R19.7 Diarrhea, unspecified; D64.81 Anemia due to antineoplastic chemotherapy; Z66 Do not resuscitate; E03.9 Hypothyroidism, unspecified; I48.2 Chronic atrial fibrillation; I11.9 Hypertensive heart disease without heart failure; E11.40 Type 2 diabetes mellitus with diabetic neuropathy, unspecified; E78.5 Hyperlipidemia, unspecified; M81.0 Age-related osteoporosis without current pathological fracture; Z79.899 Other long term (current) drug therapy; Z79.4 Long term (current) use of insulin; Z79.01 Long term (current) use of anticoagulants; Z87.891 Personal history of nicotine dependence; Z83.3 Family history of diabetes mellitus